=== PATIENT | female | born 1935 | race Caucasian/White ===

== ENCOUNTER → 2016-11-13 | Outpatient (CLI) | payer OTHER ==
[~2016-11-13] MED LIST: B-CO1CAP17 PO; BTP80 PO; ERGO1CAP41 PO; GABA-112 PO; LEVO75TA PO; MAGN400T6 PO; METO25TA56 PO; MRLP17X PO; MULT-513 PO; POTA-327 PO; PRLSR20 PO; SIMV20TA2 PO; TORS20TA2 PO; WARF5TAB7 PO
[2016-11-13 08:56] LABS: INR 2.4 (0.9-1.1); PROTHROMBIN TIME (PATIENT) 26.2 SECONDS (9.0-12.0)
== END ==
LOC: C.LABCC 08:14
PROVIDERS: ATTEND Internal Medicine
DX: I48.91 Unspecified atrial fibrillation (principal)

== ENCOUNTER → 2016-11-17 | Outpatient (CLI) | payer OTHER ==
[2016-11-17 08:37] LABS: PROTHROMBIN TIME (PATIENT) 41.5 SECONDS (9.0-12.0)
[2016-11-17 08:40] LABS: INR 3.7 (0.9-1.1)
== END ==
LOC: C.LABCC 08:11
PROVIDERS: ATTEND Internal Medicine
DX: I48.91 Unspecified atrial fibrillation (principal)

== ENCOUNTER → 2016-11-24 | Outpatient (CLI) | payer OTHER ==
[2016-11-24 09:24] LABS: PROTHROMBIN TIME (PATIENT) 65.4 SECONDS (9.0-12.0)
[2016-11-24 09:33] LABS: INR 5.7 (0.9-1.1)
== END | disposition home or self-care (01) ==
LOC: C.LABCC 08:51
PROVIDERS: ATTEND Internal Medicine
DX: I48.91 Unspecified atrial fibrillation (principal)

== ENCOUNTER → 2016-11-25 | Outpatient (CLI) | payer OTHER ==
[2016-11-25 08:26] LABS: INR 5.3 (0.9-1.1)
== END | disposition home or self-care (01) ==
LOC: C.LABCC 07:58
PROVIDERS: ATTEND Internal Medicine
DX: I48.91 Unspecified atrial fibrillation (principal)

== ENCOUNTER → 2016-11-27 | Outpatient (CLI) | payer OTHER ==
[2016-11-27 10:32] LABS: PROTHROMBIN TIME (PATIENT) 22.2 SECONDS (9.0-12.0)
== END ==
LOC: C.LABCC 09:51
PROVIDERS: ATTEND Internal Medicine
DX: I48.91 Unspecified atrial fibrillation (principal)

== ENCOUNTER → 2016-12-03 | Outpatient (CLI) | payer OTHER ==
[2016-12-03 08:37] LABS: INR 1.1 (0.9-1.1); PROTHROMBIN TIME (PATIENT) 11.6 SECONDS (9.0-12.0)
== END ==
LOC: C.LABCC 08:03
PROVIDERS: ATTEND Internal Medicine
DX: I48.91 Unspecified atrial fibrillation (principal)

== ENCOUNTER → 2016-12-11 | Outpatient (CLI) | payer OTHER ==
[2016-12-11 08:50] LABS: INR 1.4 (0.9-1.1); PROTHROMBIN TIME (PATIENT) 14.7 SECONDS (9.0-12.0)
== END ==
LOC: C.LABCC 07:54
PROVIDERS: ATTEND Internal Medicine
DX: I48.91 Unspecified atrial fibrillation (principal)

== ENCOUNTER → 2016-12-16 | Outpatient (CLI) | payer OTHER ==
[2016-12-16 08:19] LABS: INR 1.6 (0.9-1.1); PROTHROMBIN TIME (PATIENT) 17.6 SECONDS (9.0-12.0)
== END ==
LOC: C.LABCC 07:46
PROVIDERS: ATTEND Internal Medicine
DX: I48.91 Unspecified atrial fibrillation (principal)

== ENCOUNTER → 2016-12-24 | Outpatient (CLI) | payer OTHER ==
[2016-12-24 09:19] LABS: INR 1.8 (0.9-1.1); PROTHROMBIN TIME (PATIENT) 19.9 SECONDS (9.0-12.0)
== END ==
LOC: C.LABCC 08:13
PROVIDERS: ATTEND Internal Medicine
DX: I48.91 Unspecified atrial fibrillation (principal)

== ENCOUNTER → 2017-01-01 | Outpatient (CLI) | payer OTHER ==
[2017-01-01 08:24] LABS: INR 2.7 (0.9-1.1); PROTHROMBIN TIME (PATIENT) 29.8 SECONDS (9.0-12.0)
== END ==
LOC: C.LABCC 07:59
PROVIDERS: ATTEND Internal Medicine
DX: I48.91 Unspecified atrial fibrillation (principal)

== ENCOUNTER → 2017-01-05 | Outpatient (CLI) | payer OTHER ==
[2017-01-05 08:53] LABS: PROTHROMBIN TIME (PATIENT) 33.5 SECONDS (9.0-12.0)
== END | disposition home or self-care (01) ==
LOC: C.LABCC 08:22
PROVIDERS: ATTEND Internal Medicine
DX: I48.91 Unspecified atrial fibrillation (principal)

== ENCOUNTER → 2017-01-12 | Outpatient (CLI) | payer OTHER ==
[2017-01-12 10:51] LABS: INR 2.9 (0.9-1.1); PROTHROMBIN TIME (PATIENT) 32.2 SECONDS (9.0-12.0)
--- NOTE | 2017-01-14 11:14 | CODING QUERY NO DIAGNOSIS ---
TREATMENT RENDERED WITHOUT A DIAGNOSIS 35 To promote full compliance with coding requirements relating to patient care, physician participation is requested in all cases of underground repairer uncertainty. Please assist us with providing a diagnosis/symptom for the test(s) below: A diagnosis/symptom was not documented on your Order. A valid diagnosis/symptom is required to bill all insurances. Please remember that we are unable to code a diagnosis of rule out, probable, possible, questionable, or suspected. DOS 01/12/17 Tests that require a diagnosis: * PT/INR DIAGNOSIS: Provider Signature: Date: Thank you Kayla Rivera Health Information Management Once completed, please kindly fax back to [phone] For questions please call [phone]
== END ==
LOC: C.LABCC 08:32
PROVIDERS: ATTEND Internal Medicine
DX: I48.91 Unspecified atrial fibrillation (principal)

== ENCOUNTER → 2017-01-27 | Outpatient (CLI) | payer OTHER ==
[~2017-01-27] MED LIST changes: -ERGO1CAP41 PO; +ERGO500011 PO
[2017-01-27 09:02] LABS: INR 1.7 (0.9-1.1); PROTHROMBIN TIME (PATIENT) 18.2 SECONDS (9.0-12.0)
== END ==
LOC: C.LABCC 08:35
PROVIDERS: ATTEND Internal Medicine
DX: E83.9 Disorder of mineral metabolism, unspecified (principal); I48.91 Unspecified atrial fibrillation

== ENCOUNTER → 2017-02-03 | Outpatient (CLI) | payer OTHER ==
[2017-02-03 09:09] LABS: INR 1.8 (0.9-1.1); PROTHROMBIN TIME (PATIENT) 20.2 SECONDS (9.0-12.0)
== END ==
LOC: C.LABCC 08:35
PROVIDERS: ATTEND Internal Medicine
DX: I48.91 Unspecified atrial fibrillation (principal)

== ENCOUNTER → 2017-02-05 | Outpatient (CLI) | payer OTHER | LOC: C.LABCC 08:18 | PROVIDERS: ATTEND Internal Medicine | DX: T14.8 Other injury of unspecified body region (principal); X58.XXXA Exposure to other specified factors, initial encounter ==

== ENCOUNTER → 2017-02-06 | Outpatient (CLI) | payer OTHER ==
[2017-02-06 08:45] LABS: PROTHROMBIN TIME (PATIENT) 22.1 SECONDS (9.0-12.0)
== END ==
LOC: C.LABCC 08:09
PROVIDERS: ATTEND Internal Medicine
DX: I48.91 Unspecified atrial fibrillation (principal)

== ENCOUNTER → 2017-02-18 | Outpatient (CLI) | payer OTHER ==
[2017-02-18 09:45] LABS: INR 1.4 (0.9-1.1); PROTHROMBIN TIME (PATIENT) 15.2 SECONDS (9.0-12.0)
== END | disposition home or self-care (01) ==
LOC: C.LABCC 07:57
PROVIDERS: ATTEND Internal Medicine
DX: I48.91 Unspecified atrial fibrillation (principal)

== ENCOUNTER → 2017-02-23 | Outpatient (CLI) | payer OTHER ==
[2017-02-23 08:33] LABS: INR 2.6 (0.9-1.1); PROTHROMBIN TIME (PATIENT) 29.4 SECONDS (9.0-12.0)
== END ==
LOC: C.LABCC 08:02
PROVIDERS: ATTEND Internal Medicine
DX: I48.91 Unspecified atrial fibrillation (principal)

== ENCOUNTER → 2017-03-03 | Outpatient (CLI) | payer OTHER ==
[2017-03-03 08:37] LABS: PROTHROMBIN TIME (PATIENT) 57.3 SECONDS (9.0-12.0)
== END ==
LOC: C.LABCC 07:57
PROVIDERS: ATTEND Internal Medicine
DX: I48.91 Unspecified atrial fibrillation (principal)

== ENCOUNTER → 2017-03-09 | Outpatient (CLI) | payer OTHER ==
[2017-03-09 10:31] LABS: INR 2.5 (0.9-1.1)
== END ==
LOC: C.LABCC 10:09
PROVIDERS: ATTEND Internal Medicine
DX: I48.91 Unspecified atrial fibrillation (principal)

== ENCOUNTER → 2017-03-12 | Outpatient (CLI) | payer OTHER ==
[2017-03-12 08:36] LABS: PROTHROMBIN TIME (PATIENT) 21.7 SECONDS (9.0-12.0)
== END ==
LOC: C.LABCC 08:06
PROVIDERS: ATTEND Internal Medicine
DX: I48.91 Unspecified atrial fibrillation (principal)

== ENCOUNTER → 2017-03-20 | Outpatient (CLI) | payer OTHER ==
[2017-03-20 12:33] LABS: INR 1.9 (0.9-1.1); PROTHROMBIN TIME (PATIENT) 20.4 SECONDS (9.0-12.0)
== END ==
LOC: C.LABCC 12:36
PROVIDERS: ATTEND Internal Medicine
DX: I48.91 Unspecified atrial fibrillation (principal)

== ENCOUNTER → 2017-05-11 | Outpatient (CLI) | payer OTHER ==
[~2017-05-11] MED LIST changes: +ERGO1CAP41 PO; -ERGO500011 PO
[2017-05-11 08:08] LABS: INR 1.7 (0.9-1.1); PROTHROMBIN TIME (PATIENT) 18.3 SECONDS (9.0-12.0)
== END ==
LOC: C.LABCC 07:48
PROVIDERS: ATTEND Internal Medicine
DX: I48.91 Unspecified atrial fibrillation (principal)

== ENCOUNTER → 2017-05-19 | Outpatient (CLI) | payer OTHER ==
[2017-05-19 08:29] LABS: INR 1.2 (0.9-1.1); PROTHROMBIN TIME (PATIENT) 13.2 SECONDS (9.0-12.0)
== END ==
LOC: C.LABCC 07:57
PROVIDERS: ATTEND Internal Medicine
DX: I48.91 Unspecified atrial fibrillation (principal)

== ENCOUNTER → 2017-05-25 | Outpatient (CLI) | payer OTHER ==
[2017-05-25 11:19] LABS: INR 2.2 (0.9-1.1); PROTHROMBIN TIME (PATIENT) 24.2 SECONDS (9.0-12.0)
== END ==
LOC: C.LABCC 09:10
PROVIDERS: ATTEND Internal Medicine
DX: I48.91 Unspecified atrial fibrillation (principal)

== ENCOUNTER → 2017-05-27 | Outpatient (CLI) | payer OTHER ==
[2017-05-27 08:30] LABS: BASO % 0.6 %; BASO ABS # 0.04 K/uL (0-0.2); COMPLETE YES; EOS % 2.8 %; HEMATOCRIT 32.1 % (37-47); IG% 0.2 %; LYMPH % 47.4 %; LYMPH ABS # 3.05 K/uL (1.2-3.4); MEAN CELL VOLUME 95.3 fL (80-100); MEAN CORPUSCULAR HEMOGLOBIN 29.7 pg (25-34); MEAN CORPUSCULAR HGB CONC 31.2 g/dl (32-36); MEAN PLATELET VOLUME 10.3 fL (7.4-10.4); MONO % 10.7 %; NEUT % 38.3 %; PLATELET COUNT 258 K/uL (130-400); RED BLOOD COUNT 3.37 M/uL (4.2-5.4); WHITE BLOOD COUNT 6.43 K/uL (4.8-10.8)
[2017-05-27 08:45] LABS: BLOOD UREA NITROGEN 22 mg/dl (7-18); BUN/CREATININE RATIO 15.7 (10-20); CALCIUM 9.1 mg/dl (8.5-10.1); CARBON DIOXIDE 30 mmol/L (21-32); CHLORIDE 107 mmol/L (98-107); CHOLESTEROL 102 mg/dl (0-200); GLUCOSE 88 mg/dl (70-99); POTASSIUM 4.1 mmol/L (3.5-5.1); SODIUM 143 mmol/L (136-145); TRIGLYCERIDES 139 mg/dl (0-150); VERY LOW DENSITY LIPOPROT CALC 28 mg/dl
[2017-05-27 08:48] LABS: CHOLESTEROL/HDL RATIO 2.7; HDL CHOLESTEROL 38 mg/dl; LDL CHOLESTEROL CALCULATED 36 mg/dl
== END ==
LOC: C.LABCC 07:48
PROVIDERS: ATTEND Internal Medicine
DX: Z51.81 Encounter for therapeutic drug level monitoring (principal); N18.9 Chronic kidney disease, unspecified; D64.9 Anemia, unspecified

== ENCOUNTER → 2017-06-01 | Outpatient (CLI) | payer OTHER ==
[2017-06-01 09:21] LABS: INR 1.7 (0.9-1.1); PROTHROMBIN TIME (PATIENT) 18.8 SECONDS (9.0-12.0)
== END ==
LOC: C.LABCC 08:46
PROVIDERS: ATTEND Internal Medicine
DX: I48.91 Unspecified atrial fibrillation (principal)

== ENCOUNTER → 2017-06-10 | Outpatient (CLI) | payer OTHER ==
[2017-06-10 07:49] LABS: BASO % 0.5 %; BASO ABS # 0.03 K/uL (0-0.2); COMPLETE YES; EOS % 4.5 %; HEMATOCRIT 33.2 % (37-47); IG% 0.2 %; LYMPH % 49.7 %; MEAN CELL VOLUME 94.9 fL (80-100); MEAN CORPUSCULAR HEMOGLOBIN 29.4 pg (25-34); MEAN PLATELET VOLUME 10.3 fL (7.4-10.4); MONO % 9.3 %; NEUT % 35.8 %; PLATELET COUNT 266 K/uL (130-400); WHITE BLOOD COUNT 6.24 K/uL (4.8-10.8)
[2017-06-10 08:03] LABS: INR 1.7 (0.9-1.1); PROTHROMBIN TIME (PATIENT) 18.6 SECONDS (9.0-12.0)
== END | disposition home or self-care (01) ==
LOC: C.LABCC 07:39
PROVIDERS: ATTEND Internal Medicine
DX: D64.9 Anemia, unspecified (principal); I48.91 Unspecified atrial fibrillation

== ENCOUNTER → 2017-06-15 | Outpatient (CLI) | payer OTHER ==
[2017-06-15 10:43] LABS: INR 1.9 (0.9-1.1); PROTHROMBIN TIME (PATIENT) 21.4 SECONDS (9.0-12.0)
== END ==
LOC: C.LABCC 10:09
PROVIDERS: ATTEND Internal Medicine
DX: I48.91 Unspecified atrial fibrillation (principal)

== ENCOUNTER → 2017-06-22 | Outpatient (CLI) | payer OTHER ==
[2017-06-22 09:50] LABS: INR 3.1 (0.9-1.1); PROTHROMBIN TIME (PATIENT) 35.3 SECONDS (9.0-12.0)
== END ==
LOC: C.LABCC 09:23
PROVIDERS: ATTEND Internal Medicine
DX: I48.91 Unspecified atrial fibrillation (principal)

== ENCOUNTER → 2017-06-30 | Outpatient (CLI) | payer OTHER ==
[2017-06-30 12:11] LABS: INR 5.9 (0.9-1.1)
== END ==
LOC: C.LABCC 11:27
PROVIDERS: ATTEND Internal Medicine
DX: I48.91 Unspecified atrial fibrillation (principal)

== ENCOUNTER → 2017-07-01 | Outpatient (CLI) | payer OTHER ==
[2017-07-01 08:47] LABS: PROTHROMBIN TIME (PATIENT) 71.8 SECONDS (9.0-12.0)
[2017-07-01 08:54] LABS: INR 6.2 (0.9-1.1)
== END ==
LOC: C.LABCC 08:07
PROVIDERS: ATTEND Internal Medicine
DX: D68.9 Coagulation defect, unspecified (principal)

== ENCOUNTER → 2017-07-02 | Outpatient (CLI) | payer OTHER ==
[2017-07-02 08:47] LABS: INR 3.4 (0.9-1.1); PROTHROMBIN TIME (PATIENT) 38.6 SECONDS (9.0-12.0)
== END | disposition home or self-care (01) ==
LOC: C.LABCC 08:17
PROVIDERS: ATTEND Internal Medicine
DX: D68.9 Coagulation defect, unspecified (principal)

== ENCOUNTER → 2017-07-06 | Outpatient (CLI) | payer OTHER ==
[2017-07-06 08:32] LABS: INR 2.1 (0.9-1.1); PROTHROMBIN TIME (PATIENT) 23.1 SECONDS (9.0-12.0)
== END ==
LOC: C.LABCC 07:40
PROVIDERS: ATTEND Internal Medicine
DX: I48.91 Unspecified atrial fibrillation (principal)

== ENCOUNTER → 2017-07-14 | Outpatient (CLI) | payer OTHER ==
[2017-07-14 08:33] LABS: INR 1.8 (0.9-1.1); PROTHROMBIN TIME (PATIENT) 20.1 SECONDS (9.0-12.0)
== END ==
LOC: C.LABCC 07:52
PROVIDERS: ATTEND Internal Medicine
DX: I48.91 Unspecified atrial fibrillation (principal)

== ENCOUNTER → 2017-07-22 | Outpatient (CLI) | payer OTHER ==
[2017-07-22 10:01] LABS: INR 1.6 (0.9-1.1); PROTHROMBIN TIME (PATIENT) 17.4 SECONDS (9.0-12.0)
== END ==
LOC: C.LABCC 08:56
PROVIDERS: ATTEND Internal Medicine
DX: I48.91 Unspecified atrial fibrillation (principal)

== ENCOUNTER → 2017-07-29 | Outpatient (CLI) | payer OTHER ==
[2017-07-29 09:21] LABS: FERRITIN 26.6 ng/ml (8.0-388.0)
== END ==
LOC: C.LABCC 08:49
PROVIDERS: ATTEND Internal Medicine
DX: E11.9 Type 2 diabetes mellitus without complications (principal); K21.9 Gastro-esophageal reflux disease without esophagitis; D64.9 Anemia, unspecified

== ENCOUNTER → 2017-07-30 | Outpatient (CLI) | payer OTHER ==
[2017-07-30 08:45] LABS: INR 1.4 (0.9-1.1); PROTHROMBIN TIME (PATIENT) 15.2 SECONDS (9.0-12.0)
== END | disposition home or self-care (01) ==
LOC: C.LABCC 08:04
PROVIDERS: ATTEND Internal Medicine
DX: I48.91 Unspecified atrial fibrillation (principal)

== ENCOUNTER → 2017-08-03 | Outpatient (CLI) | payer OTHER ==
[2017-08-03 10:09] LABS: INR 1.7 (0.9-1.1); PROTHROMBIN TIME (PATIENT) 18.1 SECONDS (9.0-12.0)
== END ==
LOC: C.LABCC 09:28
PROVIDERS: ATTEND Internal Medicine
DX: I48.91 Unspecified atrial fibrillation (principal)

== ENCOUNTER → 2017-08-06 | Outpatient (CLI) | payer OTHER ==
--- NOTE | 2017-08-06 13:56 | MAMMOGRAPHY REPORT ---
BILATERAL DIGITAL SCREENING MAMMOGRAM WITH CAD: 08/06/2017 CLINICAL HISTORY: Routine screening. Patient has no complaints. TECHNIQUE: Current study was also evaluated with a Computer Aided Detection (CAD) system. Bilateral CC and MLO views were obtained. COMPARISON: Comparison is made to exams dated: 08/04/2016 mammogram, 12/29/2013 mammogram, 08/26/2012 m ammogram, 08/11/2011 mammogram, 04/03/2010 mammogram - [facility], and 02/22/2008. BREAST COMPOSITION: There are scattered areas of fibroglandular density in both breasts. FINDINGS: No suspicious masses, calcifications, or areas of architectural distortion are noted in ei ther breast. There has been no significant interval change compared to prior exams. Bilateral benign -appearing calcifications are not significantly changed. A pacemaker is visualized in the left 12:00 posterior breast. Note that bilateral MLO views are suboptimal due to difficulties with patient pos itioning as she is wheelchair-bound, with pectoralis muscles not visualized on the MLO views. IMPRESSION: ACR BI-RADS CATEGORY 2: BENIGN There is no mammographic evidence of malignancy. A 1 year screening mammogram is recommended. The pa tient will receive written notification of the results. Approximately 10% of breast cancers are not detected with mammography. A negative mammographic report should not delay biopsy if a clinically suggestive mass is present. Glory Nicole M.D. /:08/06/2017 12:01:45 Attending Technologist: Nader Ibrahim RT(R)(M), [facility] [employer] Machine Operator: Kimberly Samuel RT(R)(M), [facility] letter sent: Normal 1/2 BI-RADS Code: ACR BI-RADS Category 2: Benign
== END | disposition home or self-care (01) ==
LOC: C.MAMM 10:17
PROVIDERS: ATTEND Internal Medicine
DX: Z12.31 Encounter for screening mammogram for malignant neoplasm of breast (principal)

== ENCOUNTER → 2017-08-10 | Outpatient (CLI) | payer OTHER ==
[2017-08-10 09:23] LABS: INR 2.1 (0.9-1.1); PROTHROMBIN TIME (PATIENT) 22.9 SECONDS (9.0-12.0)
== END ==
LOC: C.LABCC 09:01
PROVIDERS: ATTEND Internal Medicine
DX: I48.91 Unspecified atrial fibrillation (principal)

== ENCOUNTER → 2017-08-18 | Outpatient (CLI) | payer OTHER ==
[~2017-08-18] MED LIST changes: -ERGO1CAP41 PO; +ERGO500011 PO
[2017-08-18 08:20] LABS: PROTHROMBIN TIME (PATIENT) 22.1 SECONDS (9.0-12.0)
--- NOTE | 2017-09-11 08:48 | CODING QUERY NO DIAGNOSIS ---
TREATMENT RENDERED WITHOUT A DIAGNOSIS To promote full compliance with coding requirements relating to patient care, physician participation is requested in all cases of travel coordinator uncertainty. Please assist us with providing a diagnosis/symptom for the test(s) below: A diagnosis/symptom was not documented on your Order. A valid diagnosis/symptom is required to bill all insurances. Please remember that we are unable to code a diagnosis of rule out, probable, possible, questionable, or suspected. Tests that require a diagnosis: * PT/INR DIAGNOSIS: Provider Signature: Date: Thank you Naida Cutler [employer] Information Management Once completed, please kindly fax back to [phone] For questions please call [phone]
== END ==
LOC: C.LABCC 07:59
PROVIDERS: ATTEND Internal Medicine
DX: I48.91 Unspecified atrial fibrillation (principal)

== ENCOUNTER → 2017-09-02 | Outpatient (CLI) | payer OTHER ==
[2017-09-02 09:04] LABS: INR 2.9 (0.9-1.1); PROTHROMBIN TIME (PATIENT) 32.2 SECONDS (9.0-12.0)
== END ==
LOC: C.LABCC 07:51
PROVIDERS: ATTEND Internal Medicine
DX: I48.91 Unspecified atrial fibrillation (principal)

== ENCOUNTER → 2017-10-01 | Outpatient (CLI) | payer OTHER ==
[2017-10-01 08:45] LABS: INR 3.1 (0.9-1.1); PROTHROMBIN TIME (PATIENT) 32.1 SECONDS (9.0-12.0)
== END ==
LOC: C.LABCC 07:46
PROVIDERS: ATTEND Internal Medicine
DX: I48.91 Unspecified atrial fibrillation (principal)

== ENCOUNTER → 2017-11-02 | Outpatient (CLI) | payer OTHER | LOC: C.LABCC 07:46 | PROVIDERS: ATTEND Internal Medicine | DX: I48.91 Unspecified atrial fibrillation (principal) ==

== ENCOUNTER → 2017-11-09 | Outpatient (CLI) | payer OTHER ==
[2017-11-09 11:54] LABS: INR 1.5 (0.9-1.1)
== END | disposition home or self-care (01) ==
LOC: C.LABCC 09:42
PROVIDERS: ATTEND Internal Medicine
DX: I48.91 Unspecified atrial fibrillation (principal)

== ENCOUNTER → 2017-11-18 | Outpatient (CLI) | payer OTHER ==
[2017-11-18 10:29] LABS: INR 2.7 (0.9-1.1)
== END ==
LOC: C.LABCC 08:47
PROVIDERS: ATTEND Internal Medicine
DX: I48.91 Unspecified atrial fibrillation (principal)

== ENCOUNTER → 2017-12-03 | Outpatient (CLI) | payer OTHER ==
[2017-12-03 08:44] LABS: INR 6.6 (0.9-1.1)
== END ==
LOC: C.LABCC 07:48
PROVIDERS: ATTEND Internal Medicine
DX: I48.91 Unspecified atrial fibrillation (principal)

== ENCOUNTER → 2017-12-31 | Outpatient (CLI) | payer OTHER ==
[2017-12-31 10:06] LABS: INR 1.7 (0.9-1.1)
== END ==
LOC: C.LABCC 08:13
PROVIDERS: ATTEND Internal Medicine
DX: I48.91 Unspecified atrial fibrillation (principal)

== ENCOUNTER → 2018-01-07 | Outpatient (CLI) | payer OTHER ==
[2018-01-07 08:27] LABS: INR 3.3 (0.9-1.1)
[2018-01-07 09:09] LABS: HEMOGLOBIN A1C 5.8 % (4.5-5.6)
== END ==
LOC: C.LABCC 07:51
PROVIDERS: ATTEND Internal Medicine
DX: I48.91 Unspecified atrial fibrillation (principal); E11.9 Type 2 diabetes mellitus without complications

== ENCOUNTER → 2018-01-14 | Outpatient (CLI) | payer OTHER ==
[2018-01-14 08:35] LABS: INR 4.5 (0.9-1.1)
== END ==
LOC: C.LABCC 07:56
PROVIDERS: ATTEND Internal Medicine
DX: I48.91 Unspecified atrial fibrillation (principal)

== ENCOUNTER → 2018-01-18 | Outpatient (CLI) | payer OTHER ==
[2018-01-18 08:50] LABS: INR 3.6 (0.9-1.1)
== END ==
LOC: C.LABCC 07:57
PROVIDERS: ATTEND Internal Medicine
DX: I48.91 Unspecified atrial fibrillation (principal)

== ENCOUNTER → 2018-01-21 | Outpatient (CLI) | payer OTHER ==
[2018-01-21 08:28] LABS: INR 3.3 (0.9-1.1)
== END ==
LOC: C.LABCC 08:09
PROVIDERS: ATTEND Internal Medicine
DX: I48.91 Unspecified atrial fibrillation (principal)

== ENCOUNTER → 2018-01-29 | Outpatient (CLI) | payer OTHER ==
[2018-01-29 08:53] LABS: INR 2.7 (0.9-1.1)
== END ==
LOC: C.LABCC 07:56
PROVIDERS: ATTEND Internal Medicine
DX: I48.91 Unspecified atrial fibrillation (principal)

== ENCOUNTER → 2018-02-15 | Outpatient (CLI) | payer OTHER ==
[2018-02-15 08:27] LABS: INR 1.7 (0.9-1.1)
== END ==
LOC: C.LABCC 07:52
PROVIDERS: ATTEND Internal Medicine
DX: I48.91 Unspecified atrial fibrillation (principal)

== ENCOUNTER → 2018-02-22 | Outpatient (CLI) | payer OTHER ==
[2018-02-22 09:10] LABS: INR 1.3 (0.9-1.1)
== END ==
LOC: C.LABCC 08:16
PROVIDERS: ATTEND Internal Medicine
DX: I48.91 Unspecified atrial fibrillation (principal)

== ENCOUNTER → 2018-03-03 | Outpatient (CLI) | payer OTHER ==
[2018-03-03 09:18] LABS: INR 2.4 (0.9-1.1)
== END ==
LOC: C.LABCC 08:44
PROVIDERS: ATTEND Internal Medicine
DX: I48.91 Unspecified atrial fibrillation (principal)

== ENCOUNTER 2018-05-13 11:53 | Inpatient (IN) | payer OTHER ==
[~2018-05-13] VITALS: Ht 167.6 cm; Wt 137.4 kg
[~2018-05-13 11:53] MED LIST changes: -ACET-1311 PO; -ADVIN25/60 INH; -CHOL200010 PO; -CMD125 PO; -CMD3 PO; -CYM60 PO; -DICL1GEL12 TOP; -LEVO100T7 PO; -MULTTAB63 PO; -NRN100 PO; -NRN300 PO; -POTA10CA28 PO; -SLWMEC PO; -TORS20TA3 PO
[2018-05-13] MEDS ORDERED: NITROGLYCERIN 0.4 MG SL PER TAB CHARGE SL PRN (13:30)
[2018-05-13] MEDS ORDERED: ONDANSETRON INJ 2 MG/ML 2 ML VIAL IV PRN (13:30)
[2018-05-13] MEDS ORDERED: ACETAMINOPHEN 325 MG TAB PO PRN (13:30)
[2018-05-13 13:50] VITALS: BP 156/75; PULSE 60; TEMP 36.9; O2SAT 98; BMI 55.7
[2018-05-13 14:06] LABS: HEMATOCRIT 37.1 % (37-47); HEMOGLOBIN 11.7 g/dL (12.0-16.0); MEAN CELL VOLUME 93.2 fL (80-100); MEAN CORPUSCULAR HEMOGLOBIN 29.4 pg (25-34); MEAN CORPUSCULAR HGB CONC 31.5 g/dl (32-36); MEAN PLATELET VOLUME 10.3 fL (7.4-10.4); PLATELET COUNT 244 K/uL (130-400); RED CELL DISTRIBUTION WIDTH CV 16.1 % (11.5-14.5); WHITE BLOOD COUNT 7.07 K/uL (4.8-10.8)
[2018-05-13 14:13] LABS: INR 1.7 (0.9-1.1)
[2018-05-13 14:34] LABS: CALCIUM 9.3 mg/dl (8.5-10.1); CREATININE 1.46 mg/dl (0.60-1.20); POTASSIUM 4.2 mmol/L (3.5-5.1)
[2018-05-13] MEDS ORDERED: GLUCOSE 40% GEL 15 GM TUBE PO PRN (15:30)
[2018-05-13] MEDS ORDERED: CARBOHYDRATES FOR HYPOGLYCEMIA PO PRN (15:30)
[2018-05-13] MEDS ORDERED: GLUCOSE 10 TABS/TUBE PO PRN (15:30)
[2018-05-13] MEDS ORDERED: DEXTROSE 50% 50 ML SYR IV PRN (15:30)
[2018-05-13] MEDS ORDERED: GLUCAGON FOR INJ 1 MG VIAL SQ PRN (15:30)
[2018-05-13] MEDS ORDERED: DICL1GEL12 TOP (15:49)
[2018-05-13] MEDS ORDERED: MULTTAB63 PO (15:49)
[2018-05-13] MEDS ORDERED: LEVO100T7 PO (15:49)
[2018-05-13] MEDS ORDERED: ADVIN25/60 INH (15:49)
[2018-05-13] MEDS ORDERED: CHOL200010 PO (15:49)
[2018-05-13] MEDS ORDERED: NRN300 PO (15:49)
[2018-05-13] MEDS ORDERED: ACET-1311 PO (15:49)
[2018-05-13] MEDS ORDERED: CMD3 PO (15:49)
--- NOTE | 2018-05-13 15:56 | History and Physical ---
History & Physical Date & Time of Service: May 13, 2018 at 14:20 Chief Complaint: Volume Overload Primary Care Physician: [facility] History of Present Illness Source: patient, clinic records, hospital records Pt is 82 y/o F with PMH paroxysmal atrial fibrillation, tachybrady syndrome s/p pacer, CKD III, HTN, GERD, DM II, BLE lymphedema presents as direct admission to hospital from [employer] [facility] [employer] - Dr Sun office for increased BLE edema. Reports chronic BLE edema and discomfort with steady increase in edema. Today clear discharge is noted from bilateral lower extremities in the office. Physical therapy has been tried for lymphedema without much relief. Diuretics have been difficult for pt secondary to her ambulatory dysfunction and inability to get up to bathroom easily. Uses scooter, takes multiple lift for transfers at [facility]. Pt unsure if any weight changes. Reports has sores to right chest wall, unsure if from bra rubbing or from lift, also c/o soreness to bilateral buttocks. Denies fever/chills, diaphoresis, N/V/D/C, MARTINEZ, dizziness , syncope, vision changes, neck pain, CP, SOB, orthopnea, PND, palpitations, cough, sore throat, choking, otalgia, rhinorrhea, abdominal pain, urinary symptoms. Past Medical/Surgical History Medical Problems: (1) Acute kidney injury Status: Resolved (2) Ambulatory dysfunction Status: Chronic (3) Atrial fibrillation Status: Chronic (4) Diabetes mellitus, type 2 Status: Chronic (5) Dyslipidemia Status: Chronic (6) Encephalopathy Status: Resolved (7) GERD (gastroesophageal reflux disease) Status: Chronic (8) Hypertension Status: Chronic (9) Hypothyroidism Status: Chronic (10) Osteoarthritis Status: Chronic (11) Pacemaker Status: Chronic (12) Venous insufficiency of both lower extremities Status: Chronic Surgical Problems: (1) Status post cardiac pacemaker procedure Status: Chronic (2) Status post hysterectomy Status: Chronic Family History CANCER FATHER MOTHER Social History Smoking Status: Never Smoker Smokeless Tobacco Use: No Alcohol Use: none Drug Use: none Marital Status: Housing status: other ([facility]) Occupational Status: retired Immunizations History of Influenza Vaccine: Yes Influenza Vaccine Date: Jul 30, 2010 History of Tetanus Vaccine?: Yes Tetanus Immunization Date: May 31, 2009 History of Pneumococcal: Yes Pneumococcal Date: Mar 30, 2006 History of Hepatitis B Vaccine: Yes Hepatitis Immunization Date: Mar 30, 2005 Allergies Coded Allergies: Amoxicillin (Verified Allergy, Intermediate, DERMATITIS, 06/04/16) Clavulanic Acid (Verified Allergy, Intermediate, DERMATITIS, 06/04/16) Poison Jacinda Extract/Poison Meally Extra (Verified Allergy, Intermediate, RASH , 06/09/16) Sulfa Antibiotics (Verified Allergy, Intermediate, RASH, 06/09/16) BEE STING (Verified Allergy, Mild, RASH, 06/04/16) Latex (Verified Allergy, Unknown, UNKNOWN, 06/04/16) STATES WHEN SHE WENT FOR FLU SHOT THEY TOLD HER SHE WAS ALLERGIC TO LATEX YOEL Inhibitors (Verified Adverse Reaction, Mild, COUGH, 06/09/16) Home Medications Scheduled Cholecalciferol (Vitamin D), 1 CAP PO DAILY Fluticasone Prop/Salmeterol (Advair Diskus 250/50 60 Dose), 1 PUFF INH BID Gabapentin (Gabapentin), 1 CAP PO TID Levothyroxine Sodium (Levothyroxine Sodium), 1 TAB PO DAILY Magnesium Oxide (Mag-Ox), 400 MG PO BID Metoprolol Tartrate (Lopressor) (Lopressor), 25 MG PO BID Multiple Vitamins W/ Minerals (Therems M), 1 TAB PO DAILY Omeprazole (Prilosec), 20 MG PO DAILY Potassium Ext Rel (Klor-Con), 10 MEQ PO DAILY Simvastatin (Zocor), 20 MG PO QPM Sotalol Hcl (Betapace *), 40 MG PO BID Torsemide (Demadex), 20 MG PO DAILY Vitamin B Cmplx/Vitc/Folic Ac (Nephrocaps), 1 CAP PO 3XWK Warfarin Sod (Coumadin), 1 TAB PO DAILY Scheduled PRN Acetaminophen (Tylenol), 650 MG PO Q6 PRN for Pain or Fever Diclofenac Sodium (Topical) (Voltaren 1% Top Gel), 4 GM TOP QID PRN for Pain Polyethylene (Miralax), 17 GM PO BID PRN for Constipation Review of Systems See HPI for pertinent positives & negatives. All other systems reviewed and were otherwise negative Physical Exam Vital Signs Date Time Temp Pulse Resp B/P (MAP) Pulse Ox O2 Delivery O2 Flow Rate FiO2 05/13/18 13:50 36.9 60 20 156/75 98 Room Air General Appearance: no apparent distress, + obese Head: normocephalic, atraumatic Eyes: normal inspection, sclerae normal ENT: hearing grossly normal, pharynx normal, + pertinent finding (Mucous membranes moist) Neck: supple, no JVD, trachea midline Respiratory/Chest: lungs clear, normal breath sounds, no respiratory distress Cardiovascular: regular rate, rhythm, no murmur, normal peripheral pulses Abdomen/GI: normal bowel sounds, non tender, soft Extremities/Musculoskelatal: normal capillary refill, + pertinent finding (BLE 3+ edema entire extremity, slight clear weeping noted from bilateral and lower lower extremities, mild BLE erythema. Extremities nontender to palpation.) Neurologic/Psych: alert, normal mood/affect, oriented x 3 Skin: warm/dry, + pertinent finding (bilateral feet noted to be dirty, Right torso with small erythematous ulcer noted, erythemata right torso skin fold) Diagnostics Laboratory Results Last 24 Hours Test 05/13/18 13:55 White Blood Count 7.07 K/uL Red Blood Count 3.98 M/uL Hemoglobin 11.7 g/dL Hematocrit 37.1 % Mean Corpuscular Volume 93.2 fL Mean Corpuscular Hemoglobin 29.4 pg Mean Corpuscular Hemoglobin Concent 31.5 g/dl RDW Standard Deviation 55.0 fL RDW Coefficient of Variation 16.1 % Platelet Count 244 K/uL Mean Platelet Volume 10.3 fL Prothrombin Time 17.9 SECONDS Prothromb Time International Ratio 1.7 Sodium Level 143 mmol/L Potassium Level 4.2 mmol/L Chloride Level 106 mmol/L Carbon Dioxide Level 32 mmol/L Anion Gap 5.0 mmol/L Blood Urea Nitrogen 33 mg/dl Creatinine 1.46 mg/dl Est Creatinine Clear Calc Drug Dose 46.1 ml/min Estimated GFR () 38.5 Estimated GFR (Non- 33.2 BUN/Creatinine Ratio 22.9 Random Glucose 96 mg/dl Calcium Level 9.3 mg/dl Magnesium Level 2.3 mg/dl Pro-B-Type Natriuretic Peptide 4816 pg/ml Thyroid Stimulating Hormone (TSH) 2.060 uIu/ml Diagnostic Radiology CXR: IMPRESSION: Cardiomegaly without overt pulmonary edema. EKG EKG: paced rhythm, rate 60 Impression Assessment and Plan ACUTE ON CHRONIC VOLUME OVERLOAD probable multifactorial: lymphedema, venous insufficiency. Pt on torsemide 20mg daily. BNP: 4816. CXR: Cardiomegaly without overt pulmonary edema -echo -Lasix drip per cardiology recommendations -Knox catheter -cardiology consult -cbc, prp, mag labs in am Hx PAROXYSMAL ATRIAL FIBRILLATION ON COUMADIN INR: 1.7 -continue Coumadin, sotalol, metoprolol -INR in am Hx TACHYCARDIA BRADYCARDIA SYNDROME s/p pacemaker in 2013. Current paced rhythm -had pacer check in cardiology office today: underlying rhythm sinus rhythm, atrial fibrillation burden of 13.8%, device function was normal CKD III Cr: 1.46. baseline Cr: 1.4-1.57 -continue nephro caps -monitor renal functions -avoid nephrotoxic agents when possible AMBULATORY DYSFUNCTION secondary to lymphedema, deconditioning, obesity -PT/OT eval PRESSURE WOUNDS buttocks, right torso -wound care nurse consult DM II glucose 96. No active DM meds -HA1c in am -novolog sliding scale prn HTN -continue metoprolol GERD -continue PPI HYPOTHYROIDISM TSH: 2.0 -continue levothyroxine HLD -continue statin DVT Prophylaxis -On coumadin Disposition admit tele DNR/DNI as per discussion with pt Currently at [facility] Pt was seen with Dr Pichardo. See addendum Attending addendum; The patient was seen and examined in telemetry unit She is obese with multiple comorbid conditions as mentioned above, has been almost bedbound for the last 1-1/2 years, has bilateral lymphedema, was admitted from cardiology clinic with signs and symptoms of fluid overload. She complains to have bilateral leg swelling with some discomfort She was noted to have seeping of fluid from the legs Denies any other symptoms especially no shortness of breath at rest, no chest pain and/or palpitation, no abdominal pain nausea and/or vomiting On examination No apparent distress at rest Hemodynamically stable Chest-decreased breath sounds both sites, likely due to thick chest wall Heart-S1-S2, no definite murmur appreciated Abdomen-soft, difficult to feel for any organs, bowel sounds present Extremities-bilateral lower extremities edema about 2+, no edema over the thighs thighs than the leg Seeping of fluid mostly from the left No definite ulceration and no cellulitis Minimal redness redness noted at the lower DIRECT OF REAL ESTATE-alert,awake and oriented 3, Generally weak, no focal neuro deficit Her labs and imaging studies reviewed No overt CHF and chronic kidney disease remains stable Started on intravenous Lasix infusion Monitor intake output, electrolytes and renal function Review with assessment and plan as outlined above Dr. Dex Pichardo Advanced Directives Existing Living Will: Yes Existing Power of Replenishment Merchandising Associate: Yes Resuscitation Status VTE Prophylaxis Will order VTE Prophylaxis: Yes Additional Copies To [facility] [place]
[2018-05-13] MEDS ORDERED: DICLOFENAC SOD 1% GEL 100 GM TUBE EXT PRN (16:00)
--- NOTE | 2018-05-13 16:22 | DIAGNOSTIC IMAGING REPORT ---
CHEST ONE VIEW PORTABLE HISTORY: 82 years-old Female volume overload acute shortness of breath with volume overload COMPARISON: Chest radiograph 06/04/2016 TECHNIQUE: Portable AP view of the chest FINDINGS: Cardiac silhouette is enlarged. Left subclavian pacer appears unchanged. No pneumothorax, pleural effusion or overt pulmonary edema. Mild right hemidiaphragmatic elevation. Linear subsegmental left basilar opacities favor atelectasis. Bones of the chest appear grossly intact. IMPRESSION: Cardiomegaly without overt pulmonary edema. The above report was generated using voice recognition software. It may contain grammatical, syntax or spelling errors. Electronically signed by: Fredo Redd M.D. 05/13/2018 4:21 PM Dictated Date/Time: 05/13/2018 4:20 PM
[2018-05-13] MEDS: FUROSEMIDE INJ 100 MG in DEXTROSE 5% 100ML 90 ML IV SCH (16:46)
[2018-05-13] MEDS: WARFARIN SOD 3 MG TAB PO SCH (16:51)
[2018-05-13] MEDS: INSULIN ASPART 100 UNITS/ML 3 ML PEN SC SCH ×2 (16:54→21:00)
[2018-05-13 19:54] VITALS: BP 142/74; PULSE 60; TEMP 36.4; O2SAT 100
[2018-05-13] MEDS: FLUTICASONE/SALMETEROL 250/50 (ADVAIR) 14 PUFF/1 INHALER INH SCH (21:19)
[2018-05-13] MEDS: GABAPENTIN 300 MG CAP PO SCH (21:21)
[2018-05-13] MEDS: SOTALOL HCL 80 MG TAB PO SCH (21:22)
[2018-05-13] MEDS: MAGNESIUM OXIDE 400 MG TAB PO SCH (21:23)
[2018-05-13] MEDS: SIMVASTATIN 20 MG TAB PO SCH (21:23)
[2018-05-13] MEDS: METOPROLOL TARTRATE 25 MG TAB PO SCH (21:23)
[2018-05-13 23:34] VITALS: BP 124/55; PULSE 60; TEMP 36.3; O2SAT 94
[2018-05-14] MEDS: FUROSEMIDE INJ 100 MG in DEXTROSE 5% 100ML 90 ML IV SCH ×3 (01:59→22:43)
[2018-05-14 03:08] VITALS: BP 136/61; PULSE 64; TEMP 36.7; O2SAT 94
[2018-05-14 06:18] LABS: INR 1.8 (0.9-1.1)
[2018-05-14 06:19] LABS: HEMATOCRIT 32.2 % (37-47); HEMOGLOBIN 10.5 g/dL (12.0-16.0); MEAN CELL VOLUME 95.5 fL (80-100); MEAN CORPUSCULAR HEMOGLOBIN 31.2 pg (25-34); MEAN CORPUSCULAR HGB CONC 32.6 g/dl (32-36); MEAN PLATELET VOLUME 10.4 fL (7.4-10.4); PLATELET COUNT 225 K/uL (130-400); RED CELL DISTRIBUTION WIDTH CV 16.4 % (11.5-14.5); RED CELL DISTRIBUTION WIDTH SD 55.8 fL (36.4-46.3); WHITE BLOOD COUNT 5.67 K/uL (4.8-10.8)
[2018-05-14] MEDS: LEVOTHYROXINE 100 MCG TAB PO SCH (06:32)
[2018-05-14 06:45] LABS: CREATININE 1.48 mg/dl (0.60-1.20); PHOSPHORUS 3.4 mg/dl (2.5-4.9); POTASSIUM 3.8 mmol/L (3.5-5.1)
[2018-05-14 06:56] LABS: HEMOGLOBIN A1C 5.8 % (4.5-5.6)
[2018-05-14] MEDS ORDERED: PERFLUTREN LIPID MICROSPHERE (DEFINITY) IV ONE (07:05)
[2018-05-14] MEDS: INSULIN ASPART 100 UNITS/ML 3 ML PEN SC SCH ×4 (08:19→21:00)
[2018-05-14] MEDS: CHOLECALCIFEROL 1000 INTER.UNIT TAB PO SCH (08:20)
[2018-05-14] MEDS: PANTOprazole SOD 40 MG TAB PO SCH (08:20)
[2018-05-14] MEDS: MAGNESIUM OXIDE 400 MG TAB PO SCH ×2 (08:21→21:14)
[2018-05-14] MEDS: CEROVITE ADV FORMULA TAB PO SCH (08:21)
[2018-05-14] MEDS: GABAPENTIN 300 MG CAP PO SCH ×3 (08:22→21:15)
[2018-05-14] MEDS: METOPROLOL TARTRATE 25 MG TAB PO SCH ×2 (08:22→21:14)
[2018-05-14] MEDS: SOTALOL HCL 80 MG TAB PO SCH ×2 (08:23→21:13)
[2018-05-14] MEDS: FLUTICASONE/SALMETEROL 250/50 (ADVAIR) 14 PUFF/1 INHALER INH SCH ×2 (08:24→21:13)
--- NOTE | 2018-05-14 08:35 | ECHOCARDIOGRAM REPORT ---
*NOTICE TO RECEIVING [employer] This information is strictly Confidential and protected under [place] law. [place] law prohibits you from making any further disclosure of this information unless further disclosure is expressly permitted by the written consent of the person to whom it pertains or is authorized by law. A general authorization for the release of medical or other information is not sufficient for this purpose. Hospital accepts no responsibility if the information is made available to any other person, INCLUDING THE PATIENT. Interpretation Summary * Name: GOLDY SULLIVAN Study Date: 05/14/2018 06:27 AM BP: 136/61 mmHg * Patient Location: [id number].2E\[id number]\E207\S\1 HR: 64 * : 1935 (M/d/yyyy) Gender: Female Height: 66 in * Age: 82 yrs Ethnicity: CA Weight: 345 lb * Ordering Physician: Cielo Andrew * Referring Physician: UNKNOWN * Performed By: Huma Arciniega RDCS * * Reason For Study: Volume overload * BSA: 2.5 m2 * -- Conclusions -- * No significant change compared to previous study of 01/15/14. * Normal LV chamber size with mild concentric LVH. * Normal LV systolic function, EF 60-65%. * No segmental left ventricular wall motion abnormalities are noted. * Grade II diastolic dysfunction. * Poorly visualized valvular structures with no significant stenosis or regurgitation by Doppler. Procedure Details * A complete two-dimensional transthoracic echocardiogram was performed (2D, M-mode, Doppler and color flow Doppler). * A contrast injection of Definity was performed to improve assessment of LV function. * Contrast was injected into an intravenous site in the left arm. * One vial of Definity ultrasound contrast was diluted in normal saline to a total volume of 10 ml. A total of '2' ml of solution was administered during imaging. * Lot # [id number] of Definity utilized for procedure. * Expiration date MARCH 13. * The attending nurse who injected the contrast agent was Kelsy Avilez RN. Left Ventricle * The left ventricle is normal in size. * There is no thrombus. * There is mild concentric left ventricular hypertrophy. * Ejection Fraction = 60-65%. * Left ventricular systolic function is normal. * No segmental left ventricular wall motion abnormalities are noted. * The left ventricular wall motion is normal. Right Ventricle * The right ventricle is not well visualized. * The right ventricular systolic function is normal as assessed by tricuspid annular plane systolic excursion (TAPSE) (normal >1.5 cm). Atria * The left atrium is not well visualized. * Right atrium not well visualized. Mitral Valve * The mitral valve is not well visualized. * There is no mitral valve stenosis. * There is no mitral regurgitation noted. Tricuspid Valve * The tricuspid valve is not well visualized. * There is no tricuspid stenosis. * No tricuspid regurgitation. Aortic Valve * The aortic valve is not well visualized. * No hemodynamically significant valvular aortic stenosis. * There is no significant aortic regurgitation. Pulmonic Valve * The pulmonary valve is not well seen, but the Doppler examination is normal without significant regurgitation or stenosis. Great Vessels * The aortic root is normal size. Pericardium/Pleural * There is no pericardial effusion. Left Ventricular Diastolic Function * Diastolic dysfunction, Grade II (pseudonormalization pattern). MMode 2D Measurements and Calculations IVSd 0.97 cm LVIDd 5.5 cm LVIDs 3.7 cm LVPWd 1.1 cm IVS/LVPW 0.88 FS 31.9 % EDV(Teich) 145.7 ml ESV(Teich) 59.0 ml EF(Teich) 59.5 % EDV(cubed) 163.8 ml ESV(cubed) 51.7 ml EF(cubed) 68.5 % LV mass(C)d 221.3 grams LV mass(C)dI 87.7 grams/m\S\2 SV(Teich) 86.6 ml SI(Teich) 34.3 ml/m\S\2 SV(cubed) 112.1 ml SI(cubed) 44.5 ml/m\S\2 Ao root diam 3.4 cm Ao root area 9.2 cm\S\2 ACS 1.8 cm asc Aorta Diam 3.2 cm LVOT diam 2.0 cm LVOT area 3.1 cm\S\2 LVAd ap4 25.3 cm\S\2 LVLd ap4 7.8 cm EDV(MOD-sp4) 68.9 ml EDV(sp4-el) 69.6 ml LVAs ap4 12.8 cm\S\2 LVLs ap4 5.8 cm ESV(MOD-sp4) 23.9 ml ESV(sp4-el) 24.1 ml EF(MOD-sp4) 65.4 % EF(sp4-el) 65.4 % LVAd ap2 22.8 cm\S\2 LVLd ap2 7.0 cm EDV(MOD-sp2) 60.9 ml EDV(sp2-el) 63.0 ml LVAs ap2 11.8 cm\S\2 LVLs ap2 5.3 cm ESV(MOD-sp2) 21.8 ml ESV(sp2-el) 22.1 ml EF(MOD-sp2) 64.2 % EF(sp2-el) 65.0 % LVLd %diff -11.33 % EDV(MOD-bp) 67.3 ml LVLs %diff -8.34 % ESV(MOD-bp) 23.8 ml EF(MOD-bp) 64.7 % SV(MOD-sp4) 45.1 ml SI(MOD-sp4) 17.9 ml/m\S\2 SV(MOD-sp2) 39.1 ml SI(MOD-sp2) 15.5 ml/m\S\2 SV(MOD-bp) 43.6 ml SI(MOD-bp) 17.3 ml/m\S\2 SV(sp4-el) 45.5 ml SI(sp4-el) 18.1 ml/m\S\2 SV(sp2-el) 40.9 ml SI(sp2-el) 16.2 ml/m\S\2 Doppler Measurements and Calculations MV E max jaswinder 103.9 cm/sec MV A max jaswinder 91.5 cm/sec MV E/A 1.1 MV dec time 0.33 sec Ao V2 max 126.3 cm/sec Ao max PG 6.4 mmHg Ao max PG (full) 0.54 mmHg AGNES(V,A) 3.0 cm\S\2 AGNES(V,D) 3.0 cm\S\2 LV V1 max PG 5.8 mmHg LV V1 max 120.8 cm/sec TR max jaswinder 280.4 cm/sec
[2018-05-14] MEDS ORDERED: POTASSIUM CHLORIDE 10 MEQ TABCR PO SCH (09:00)
--- NOTE | 2018-05-14 09:15 | Clinical Documentation Query ---
CLINICAL DOCUMENTATION QUERY 82 yo female admitted for acute on chronic volume overload. Echo showed EF 60-65% and Grade II diastolic dysfunction and BNP = 4816. Patient is on a Lasix drip and takes Torsemide 20mg PO at home. In your clinical opinion is this patient being managed for: ( ) Acute on chronic diastolic (congestive) heart failure ( x ) Not Agree (would expect signs of CHF on chest x-ray which were not seen) ( ) Other explanation of clinical findings (No explanation is considered a No Response) ( ) Unable to determine ( ) Need to Discuss (Phone CDS or qliq) (No discussion is considered a No Response) The medical record reflects the following clinical findings, treatment, and risk factors. Clinical Indicators: As above, bilateral lower extremity edema Treatment: As above, ICU, echo Risk Factors: HTN, CKD DM, age, medication noncompliance Please clarify and document your clinical opinion in the progress notes and discharge summary. Terms such as "probable", "suspected", "likely", "questionable", "possible", or "still to be ruled out" are acceptable. IF IN AGREEMENT, YOU MUST DOCUMENT ABOVE DIAGNOSTIC STATEMENT IN DAILY PROGRESS NOTES AND DISCHARGE SUMMARY. This document is not part of the patient's record. Thank You, Maddi Francois RN, MSN [phone]
[2018-05-14 10:05] VITALS: BP 128/50; PULSE 62; TEMP 36.5; O2SAT 95
[2018-05-14 10:16] VITALS: BP 128/50; PULSE 62; TEMP 36.7; O2SAT 95
[2018-05-14 11:14] VITALS: BP 132/82; PULSE 64; TEMP 36.7; O2SAT 95
--- NOTE | 2018-05-14 11:35 | CARDIOLOGY CONSULTATION ---
DATE OF CONSULTATION: 05/14/2018 CONSULTATION REQUESTED BY: Dr. Velvet Andrew. REASON FOR CONSULTATION: Marked volume overload. HISTORY OF PRESENT ILLNESS: Mrs. Ramos is a very pleasant 82-year-old woman who normally follows with Cornelia Ramos and Dr. Sun of cardiology practice. She presented to her routinely scheduled outpatient followup with Dr. Sun on the and was found to be markedly volume overloaded. The patient and her son at that time states that she has been having progressively worsening lower extremity edema over the last several months to the point where now the patient was unable to ambulate and ride in a motorized scooter. She does have a past medical history consistent with lymphedema and has been having difficulty tolerating physical therapy as well as lower extremity compression. At the time of the evaluation with Dr. Sun, her legs were found to be severely edematous with weeping clear fluid below the knees. Her diuretic management has been complicated in the past due to her difficulty ambulating to the restroom and she has not been able to tolerate it previously. Otherwise, she states that her breathing has been getting a little bit more short winded as of late with activity, but again it is really her legs that have been limiting her activity. Otherwise, she denies any chest pain, palpitations, lightheadedness, dizziness, or syncope and she has been taking her medications as directed without issue. PAST SURGICAL HISTORY: 1. Total abdominal hysterectomy. 2. Tubal ligation. 3. Tachybrady syndrome, status post Medtronic dual chamber permanent pacemaker placement in 2013. MEDICAL ILLNESSES: 1. Chronic venous insufficiency. 2. Lymphedema. 3. Obesity. 4. Paroxysmal atrial fibrillation on chronic sotalol and Coumadin therapy. 5. Stage 3 chronic kidney disease. 6. Diabetes. 7. Tachybrady syndrome, status post permanent pacemaker placement. 8. Neuralgia. 9. History of PE. 10. Hypothyroidism. FAMILY HISTORY: Noncontributory. SOCIAL HISTORY: The patient denies any alcohol, tobacco, or recreational drug use. She is . She has 1 child. She is a retired government ward secretary. REVIEW OF SYSTEMS: As per HPI, all other review of systems reviewed and negative at this time. ALLERGIES: 1. YOEL INHIBITOR. 2. AMOXICILLIN. 3. BEE STINGS. 4. CLAVULANIC ACID. 5. LATEX. 6. SULFA. MEDICATIONS AN OUTPATIENT: 1. Magnesium oxide 400 mg b.i.d. 2. Simvastatin 20 mg daily. 3. Torsemide 20 mg daily. 4. Coumadin as directed by [facility]. 5. Potassium chloride 10 mEq daily. 6. Sotalol 40 mg b.i.d. 7. Neurontin 3 times a day. 8. Metoprolol tartrate 25 mg b.i.d. 9. Insulin as directed. 10. Advair Diskus. 11. Levoxyl daily. PHYSICAL EXAMINATION: VITALS: Temperature 36.7, pulse 64, respiratory rate 12, blood pressure 136/61. GENERAL: Awake, alert, and oriented x3, in no acute distress. HEENT: Normocephalic, atraumatic. Pupils equal, round, reactive to light and accommodation. Extraocular muscles intact. Anicteric sclerae. Moist mucous membranes. Hard of hearing. NECK: No JVD, no bruit. CARDIOVASCULAR: Regular, but distant. Unable to appreciate murmurs, rubs, or gallops. PULMONARY: Poor air movement at the bilateral bases, otherwise clear with no rales, rhonchi, or wheezing. ABDOMEN: Bowel sounds x4, obese. No rebound, guarding, or tenderness. No organomegaly. EXTREMITIES: Profound bilateral lower extremity pitting edema with active weeping of clear fluid. No cyanosis or clubbing. Unable to appreciate pedal pulses bilaterally due to fluid. TEST RESULTS/LABORATORY STUDIES OF SIGNIFICANCE: Sodium 144, potassium 3.8, BUN 32, creatinine 1.48. A 12-lead EKG performed upon arrival independently reviewed at this time shows a ventricularly paced rhythm at 60 beats per minute. IMPRESSION: 1. Significant lower extremity volume overload, multifactorial. 2. Paroxysmal atrial fibrillation, currently in normal sinus rhythm on chronic Coumadin and sotalol. 3. Stage 3 chronic kidney disease. 4. Diabetes. 5. Obesity. 6. History of lymphedema. RECOMMENDATIONS: It is my pleasure to see Mrs. Ramos in consultation today. From a cardiac standpoint, the patient has already been started on appropriate Lasix drip as per Dr. Sun's initial recommendations and she has been diuresing very well. Given the profound amount of her volume overload, I do believe it will likely take several days of continued diuresis until we are able to reach her dry weight. In the meantime, she will be continued on the drip. Her outpatient sotalol, metoprolol, and warfarin will be continued and we will transition her back to her oral torsemide once she has reached her dry weight. Otherwise, we will continue to monitor her electrolytes and replete as necessary.
[2018-05-14 13:39] VITALS: Ht 167.6 cm; Wt 137.4 kg
[2018-05-14 15:37] VITALS: TEMP 36.7
[2018-05-14] MEDS: WARFARIN SOD 3 MG TAB PO SCH (15:49)
[2018-05-14] MEDS: NEPHROCAPS PO SCH (15:49)
[2018-05-14] MEDS: BOOST GLUCOSE CONTROL VANILLA PO SCH (17:35)
[2018-05-14 19:34] VITALS: BP 179/65; PULSE 87; TEMP 36.6; O2SAT 96
[2018-05-14] MEDS: SIMVASTATIN 20 MG TAB PO SCH (21:15)
--- NOTE | 2018-05-14 21:41 | Progress Note ---
Medicine Progress Note Date & Time of Visit: May 14, 2018 at ~ 18:30 . Subjective CC: Follow-up visit for fluid overload and other problems. HPI: Persistent dependent edema. No chest pain. No cough or shortness of breath. ROS: General- no fever, no chills Resp- as noted above in HPI Cardiac- as noted above in HPI GI- no nausea, no vomiting, no diarrhea, no constipation - Knox catheter . Objective Last 8 Hrs Date Time Temp Pulse Resp B/P (MAP) Pulse Ox O2 Delivery O2 Flow Rate FiO2 05/14/18 19:34 36.6 87 16 179/65 (103) 96 Room Air 05/14/18 15:37 36.7 Physical Exam: General- lying in bed, no distress Lungs- clear to auscultation; no respiratory distress Cardiovascular- RRR; no murmur or gallop appreciated; no JVD appreciated; marked lymphedema Abdomen- + bowel sounds, soft, nontender Extremities- no cyanosis; no calf tenderness Neuro- alert, oriented Skin- warm & dry . Laboratory Results: Last 24 Hours Test 05/14/18 05:42 05/14/18 07:40 05/14/18 11:50 05/14/18 16:10 White Blood Count 5.67 K/uL Red Blood Count 3.37 M/uL Hemoglobin 10.5 g/dL Hematocrit 32.2 % Mean Corpuscular Volume 95.5 fL Mean Corpuscular Hemoglobin 31.2 pg Mean Corpuscular Hemoglobin Concent 32.6 g/dl RDW Standard Deviation 55.8 fL RDW Coefficient of Variation 16.4 % Platelet Count 225 K/uL Mean Platelet Volume 10.4 fL Prothrombin Time 18.7 SECONDS Prothromb Time International Ratio 1.8 Sodium Level 144 mmol/L Potassium Level 3.8 mmol/L Chloride Level 105 mmol/L Carbon Dioxide Level 33 mmol/L Anion Gap 6.0 mmol/L Blood Urea Nitrogen 32 mg/dl Creatinine 1.48 mg/dl Est Creatinine Clear Calc Drug Dose 45.5 ml/min Estimated GFR () 37.8 Estimated GFR (Non- 32.6 BUN/Creatinine Ratio 21.9 Random Glucose 90 mg/dl Estimated Average Glucose 120 mg/dl Hemoglobin A1c 5.8 % Calcium Level 9.0 mg/dl Phosphorus Level 3.4 mg/dl Magnesium Level 2.0 mg/dl Bedside Glucose 102 mg/dl 97 mg/dl 92 mg/dl Test 05/14/18 20:00 Bedside Glucose 118 mg/dl Assessment & Plan FLUID OVERLOAD / LYMPHEDEMA Chronic lower extremity edema due to venous insufficiency and lymphedema. Chest x-ray showed cardiomegaly, but no pulmonary vascular congestion. Echocardiogram showed normal left ventricular systolic function, grade II diastolic dysfunction; right ventricle was poorly visualized with normal systolic function, no TR. Currently on furosemide infusion. PAROXYSMAL ATRIAL FIBRILLATION Currently in ventricular paced rhythm. Continue sotalol, metoprolol, warfarin. GERD Continue PPI. CKD III Serum creatinine at time of admission 1.46. Creatinine today = 1.48. Follow. DM TYPE 2 Well-controlled. Hemoglobin A1c 5.8. Fasting blood sugar this morning = 102. Continue insulin coverage. HYPOTHYROIDISM TSH 2.060. Continue levothyroxine. MORBID OBESITY Weight 156.8 kg, BMI 55.8 kg/m2. AHA diet. VTE PROPHYLAXIS Continue warfarin. DISPOSITION To be determined. . Current Inpatient Medications: Current Inpatient Medications Medications (Trade) Dose Ordered Sig/Elly Route Start Time Stop Time Status Last Admin Dose Admin Acetaminophen (Tylenol Tab) 650 mg Q4H PRN PO 05/13/18 13:30 06/12/18 13:29 05/14/18 02:44 650 MG Ondansetron HCl (Zofran Inj) 4 mg Q6H PRN IV 05/13/18 13:30 06/12/18 13:29 Nitroglycerin (Nitrostat Tab) 0.4 mg QD PRN SL 05/13/18 13:30 06/12/18 13:29 Polyethylene (Miralax Powder Packet) 17 gm DAILY PRN PO 05/13/18 13:30 06/12/18 13:29 Furosemide 100 mg/ Dextrose 100 ml @ 10 mls/hr Q10H IV 05/13/18 16:00 06/12/18 15:59 05/14/18 12:44 10 MLS/HR Glucose (Glucose 40% Gel) 15-30 GRAMS 15 GRAMS... UD PRN PO 05/13/18 15:30 06/12/18 15:29 Glucose (Glucose Chew Tab) 4-8 Tablets 4 Tabl... UD PRN PO 05/13/18 15:30 06/12/18 15:29 Dextrose (Dextrose 50% 50ML Syringe) 25-50ML 25ML FOR ... UD PRN IV 05/13/18 15:30 06/12/18 15:29 Glucagon (Glucagon Inj) 1 mg UD PRN SQ 05/13/18 15:30 06/12/18 15:29 Carbohydrates (Carbohydrates For Hypoglycemia) 15-30 GRAMS 15 grams if BSG 54-69... UD PRN PO 05/13/18 15:30 06/12/18 15:29 Diclofenac Sodium (Voltaren 1% Top Gel) 1 appln QID PRN EXT 05/13/18 16:00 06/12/18 15:59 Salmeterol Xinafoate/ Fluticasone (Advair Diskus 250/50 Inh) 1 puff BID INH 05/13/18 21:00 06/12/18 20:59 05/14/18 21:13 1 PUFF Gabapentin (Neurontin Cap) 300 mg TID PO 05/13/18 21:00 06/12/18 20:59 05/14/18 21:15 300 MG Levothyroxine Sodium (Synthroid Tab) 100 mcg DAILYBB PO 05/14/18 06:00 06/13/18 05:59 05/14/18 06:32 100 MCG Magnesium Oxide (Mag-Ox Tab) 400 mg BID PO 05/13/18 21:00 06/12/18 20:59 05/14/18 21:14 400 MG Metoprolol Tartrate (Lopressor Tab) 25 mg BID PO 05/13/18 21:00 06/12/18 20:59 05/14/18 21:14 25 MG Multivitamins/ Minerals (Multivitamin W/ Minerals Tab) 1 tab DAILY PO 05/14/18 09:00 06/13/18 08:59 05/14/18 08:21 1 TAB Potassium Chloride (Klor-Con M10) 10 meq DAILY PO 05/14/18 09:00 06/13/18 08:59 05/14/18 08:24 10 MEQ Simvastatin (Zocor Tab) 20 mg QPM PO 05/13/18 21:00 06/12/18 20:59 05/14/18 21:15 20 MG Sotalol HCl (Betapace Tab) 40 mg BID PO 05/13/18 21:00 06/12/18 20:59 05/14/18 21:13 40 MG Vitamin B Complex/ Vit C/Folic Acid (Nephrocaps) 1 cap MoWeFr@1600 PO 05/14/18 16:00 06/13/18 15:59 05/14/18 15:49 1 CAP Warfarin Sodium (Coumadin Tab) 3 mg DAILY@1600 PO 05/13/18 16:00 06/12/18 15:59 05/14/18 15:49 3 MG Cholecalciferol (Vitamin D Tab) 2,000 inter.unit DAILY PO 05/14/18 09:00 06/13/18 08:59 05/14/18 08:20 2,000 INTER.UNIT Pantoprazole Sodium (Protonix Tab) 40 mg QAM PO 05/14/18 09:00 06/13/18 08:59 05/14/18 08:20 40 MG Insulin Aspart (novoLOG ASPART) SLIDING SCALE If C... ACHS SC 05/13/18 16:15 06/12/18 16:14 05/14/18 17:34 5 UNITS Enteral Nutritional Formula (Boost Glucose Control) 1 can BIDM PO 05/14/18 16:45 06/13/18 16:44
[2018-05-15] VITALS (9 sets, daily range): BP systolic 120–148; BP diastolic 53–72; PULSE 61–67; TEMP 36.4–36.8; O2SAT 91–96
[2018-05-15] MEDS: LEVOTHYROXINE 100 MCG TAB PO SCH (06:21)
[2018-05-15] MEDS: BOOST GLUCOSE CONTROL VANILLA PO SCH ×2 (07:30→16:45)
[2018-05-15 08:14] LABS: INR 1.7 (0.9-1.1)
[2018-05-15 08:35] LABS: CALCIUM 9.1 mg/dl (8.5-10.1); CREATININE 1.57 mg/dl (0.60-1.20); POTASSIUM 3.5 mmol/L (3.5-5.1)
--- NOTE | 2018-05-15 08:53 | Cardiology Follow-Up ---
Subjective Subjective Date of Service: May 15, 2018. Additional Details: The patient had an uneventful night. She states she feels better. Weight is trending down. Problem List Medical Problems: (1) Cellulitis of left lower extremity Status: Acute Review of Systems Cardiac: + edema Endo: + fatigue Objective Vital Signs Last Vital Signs Documentation Date Time Temp Pulse Resp B/P (MAP) Pulse Ox O2 Delivery O2 Flow Rate FiO2 05/15/18 04:19 36.5 63 18 132/59 (83) 93 Room Air Physical Exam: General Appearance: no apparent distress, + obese ENT: hearing grossly normal Respiratory/Chest: no respiratory distress, no accessory muscle use Cardiovascular: regular rate, rhythm Abdomen: normal bowel sounds, non tender, soft, no organomegaly Extremities: + swelling, + pertinent finding Neurologic/Psychiatric: alert, normal mood/affect Skin: warm/dry, no rash Lymphatic: no adenopathy Assessment and Plan IMPRESSION: 1. Significant lower extremity volume overload, multifactorial. 2. Paroxysmal atrial fibrillation, currently in normal sinus rhythm on chronic Coumadin and sotalol. 3. Stage 3 chronic kidney disease. 4. Diabetes. 5. Obesity. 6. History of lymphedema. Recommendations: Patient states she feels better. She is still caring a lot of fluid in in addition to the loop diuretic I have added a thiazide. Replacing electrolytes and continuing current antiarrhythmics. Medications: Current Inpatient Medications Medications (Trade) Dose Ordered Sig/Elly Route Start Time Stop Time Status Last Admin Dose Admin Acetaminophen (Tylenol Tab) 650 mg Q4H PRN PO 05/13/18 13:30 06/12/18 13:29 05/14/18 02:44 650 MG Ondansetron HCl (Zofran Inj) 4 mg Q6H PRN IV 05/13/18 13:30 06/12/18 13:29 Nitroglycerin (Nitrostat Tab) 0.4 mg QD PRN SL 05/13/18 13:30 06/12/18 13:29 Polyethylene (Miralax Powder Packet) 17 gm DAILY PRN PO 05/13/18 13:30 06/12/18 13:29 Furosemide 100 mg/ Dextrose 100 ml @ 10 mls/hr Q10H IV 05/13/18 16:00 06/12/18 15:59 05/14/18 22:43 10 MLS/HR Glucose (Glucose 40% Gel) 15-30 GRAMS 15 GRAMS... UD PRN PO 05/13/18 15:30 06/12/18 15:29 Glucose (Glucose Chew Tab) 4-8 Tablets 4 Tabl... UD PRN PO 05/13/18 15:30 06/12/18 15:29 Dextrose (Dextrose 50% 50ML Syringe) 25-50ML 25ML FOR ... UD PRN IV 05/13/18 15:30 06/12/18 15:29 Glucagon (Glucagon Inj) 1 mg UD PRN SQ 05/13/18 15:30 06/12/18 15:29 Carbohydrates (Carbohydrates For Hypoglycemia) 15-30 GRAMS 15 grams if BSG 54-69... UD PRN PO 05/13/18 15:30 06/12/18 15:29 Diclofenac Sodium (Voltaren 1% Top Gel) 1 appln QID PRN EXT 05/13/18 16:00 06/12/18 15:59 Salmeterol Xinafoate/ Fluticasone (Advair Diskus 250/50 Inh) 1 puff BID INH 05/13/18 21:00 06/12/18 20:59 05/14/18 21:13 1 PUFF Gabapentin (Neurontin Cap) 300 mg TID PO 05/13/18 21:00 06/12/18 20:59 05/14/18 21:15 300 MG Levothyroxine Sodium (Synthroid Tab) 100 mcg DAILYBB PO 05/14/18 06:00 06/13/18 05:59 05/15/18 06:21 100 MCG Magnesium Oxide (Mag-Ox Tab) 400 mg BID PO 05/13/18 21:00 06/12/18 20:59 05/14/18 21:14 400 MG Metoprolol Tartrate (Lopressor Tab) 25 mg BID PO 05/13/18 21:00 06/12/18 20:59 05/14/18 21:14 25 MG Multivitamins/ Minerals (Multivitamin W/ Minerals Tab) 1 tab DAILY PO 05/14/18 09:00 06/13/18 08:59 05/14/18 08:21 1 TAB Potassium Chloride (Klor-Con M10) 10 meq DAILY PO 05/14/18 09:00 06/13/18 08:59 7/20/18 08:24 10 MEQ Simvastatin (Zocor Tab) 20 mg QPM PO 05/13/18 21:00 06/12/18 20:59 05/14/18 21:15 20 MG Sotalol HCl (Betapace Tab) 40 mg BID PO 05/13/18 21:00 06/12/18 20:59 05/14/18 21:13 40 MG Vitamin B Complex/ Vit C/Folic Acid (Nephrocaps) 1 cap MoWeFr@1600 PO 05/14/18 16:00 06/13/18 15:59 05/14/18 15:49 1 CAP Warfarin Sodium (Coumadin Tab) 3 mg DAILY@1600 PO 05/13/18 16:00 06/12/18 15:59 05/14/18 15:49 3 MG Cholecalciferol (Vitamin D Tab) 2,000 inter.unit DAILY PO 05/14/18 09:00 06/13/18 08:59 05/14/18 08:20 2,000 INTER.UNIT Pantoprazole Sodium (Protonix Tab) 40 mg QAM PO 05/14/18 09:00 06/13/18 08:59 05/14/18 08:20 40 MG Insulin Aspart (novoLOG ASPART) SLIDING SCALE If C... ACHS SC 05/13/18 16:15 06/12/18 16:14 05/14/18 17:34 5 UNITS Enteral Nutritional Formula (Boost Glucose Control) 1 can BIDM PO 05/14/18 16:45 06/13/18 16:44 Cefuroxime Axetil (Ceftin Tab) 500 mg BID PO 05/15/18 09:00 05/20/18 08:59 UNV Lab Results: Last 24 Hours Test 05/14/18 11:50 05/14/18 16:10 05/14/18 20:00 05/15/18 07:34 Bedside Glucose 97 mg/dl 92 mg/dl 118 mg/dl 94 mg/dl Test 05/15/18 07:35 Prothrombin Time 17.8 SECONDS Prothromb Time International Ratio 1.7 Sodium Level 141 mmol/L Potassium Level 3.5 mmol/L Chloride Level 100 mmol/L Carbon Dioxide Level 34 mmol/L Anion Gap 7.0 mmol/L Blood Urea Nitrogen 34 mg/dl Creatinine 1.57 mg/dl Est Creatinine Clear Calc Drug Dose 42.7 ml/min Estimated GFR () 35.2 Estimated GFR (Non- 30.4 BUN/Creatinine Ratio 21.9 Random Glucose 88 mg/dl Calcium Level 9.1 mg/dl
[2018-05-15] MEDS ORDERED: CIPROFLOXACIN 500 MG TAB PO SCH (09:00)
[2018-05-15] MEDS ORDERED: METOLAZONE 5 MG TAB PO ONE (09:00)
[2018-05-15] MEDS: GABAPENTIN 300 MG CAP PO SCH ×3 (09:24→21:33)
[2018-05-15] MEDS: FLUTICASONE/SALMETEROL 250/50 (ADVAIR) 14 PUFF/1 INHALER INH SCH ×2 (09:25→21:27)
[2018-05-15] MEDS: PANTOprazole SOD 40 MG TAB PO SCH (09:26)
[2018-05-15] MEDS: POTASSIUM CHLORIDE 10 MEQ TABCR PO SCH ×2 (09:26→21:34)
[2018-05-15] MEDS: CHOLECALCIFEROL 1000 INTER.UNIT TAB PO SCH (09:26)
[2018-05-15] MEDS: CEFUROXIME AXETIL 500 MG TAB PO SCH ×2 (09:26→21:33)
[2018-05-15] MEDS: CEROVITE ADV FORMULA TAB PO SCH (09:27)
[2018-05-15] MEDS: METOPROLOL TARTRATE 25 MG TAB PO SCH ×2 (09:27→21:34)
[2018-05-15] MEDS: SOTALOL HCL 80 MG TAB PO SCH ×2 (09:27→21:35)
[2018-05-15] MEDS: FUROSEMIDE INJ 100 MG in DEXTROSE 5% 100ML 90 ML IV SCH ×2 (09:29→21:24)
[2018-05-15] MEDS: INSULIN ASPART 100 UNITS/ML 3 ML PEN SC SCH ×4 (09:32→21:00)
[2018-05-15] MEDS: MAGNESIUM CHLORIDE 64MG DELAYED REL TAB PO SCH ×2 (09:42→21:35)
[2018-05-15] MEDS: WARFARIN SOD 3 MG TAB PO SCH (16:46)
--- NOTE | 2018-05-15 20:02 | Progress Note ---
Medicine Progress Note Date & Time of Visit: May 15, 2018 at 10:40 . Subjective CC: Follow-up visit for fluid overload and other problems. HPI: Hemodynamically stable with diuresis. Persistent dependent edema. No chest pain. No cough or shortness of breath. ROS: General- no fever, no chills Resp- as noted above in HPI Cardiac- as noted above in HPI GI- no nausea, no vomiting, no diarrhea, no constipation - Knox catheter . Objective Last 8 Hrs Date Time Temp Pulse Resp B/P (MAP) Pulse Ox O2 Delivery O2 Flow Rate FiO2 05/15/18 19:19 36.7 66 18 148/54 (85) 95 Room Air 05/15/18 15:17 36.4 63 18 148/62 (90) 96 Room Air Physical Exam: General- lying in bed, no distress Lungs- clear to auscultation; no respiratory distress Cardiovascular- RRR; no murmur or gallop appreciated; no JVD appreciated; marked lymphedema Abdomen- + bowel sounds, soft, nontender Extremities- no cyanosis; no calf tenderness Neuro- alert, oriented Skin- warm & dry . Laboratory Results: Last 24 Hours Test 05/15/18 07:34 05/15/18 07:35 05/15/18 11:14 05/15/18 16:26 Bedside Glucose 94 mg/dl 96 mg/dl 95 mg/dl Prothrombin Time 17.8 SECONDS Prothromb Time International Ratio 1.7 Sodium Level 141 mmol/L Potassium Level 3.5 mmol/L Chloride Level 100 mmol/L Carbon Dioxide Level 34 mmol/L Anion Gap 7.0 mmol/L Blood Urea Nitrogen 34 mg/dl Creatinine 1.57 mg/dl Est Creatinine Clear Calc Drug Dose 42.7 ml/min Estimated GFR () 35.2 Estimated GFR (Non- 30.4 BUN/Creatinine Ratio 21.9 Random Glucose 88 mg/dl Calcium Level 9.1 mg/dl Assessment & Plan FLUID OVERLOAD / LYMPHEDEMA Chronic lower extremity edema due to venous insufficiency and lymphedema. Chest x-ray showed cardiomegaly, but no pulmonary vascular congestion. Echocardiogram showed normal left ventricular systolic function, grade II diastolic dysfunction; right ventricle was poorly visualized with normal systolic function, no TR. Significant diuresis with furosemide infusion, but weight has not yet changed. Continue furosemide infusion. PAROXYSMAL ATRIAL FIBRILLATION Currently in ventricular paced rhythm. Continue sotalol, metoprolol, warfarin. GERD Continue PPI. CKD III Serum creatinine at time of admission 1.46. Creatinine today = 1.57. Follow. DM TYPE 2 Well-controlled. Hemoglobin A1c 5.8. Fasting blood sugar this morning = 96. Continue insulin coverage. HYPOTHYROIDISM TSH 2.060. Continue levothyroxine. MORBID OBESITY Weight 156.8 kg, BMI 55.8 kg/m2. AHA diet. UTI (present on admission) Urine culture grew Providencia alcalifaciens. Rx with cefuroxime per sensitivities. VTE PROPHYLAXIS Continue warfarin. DISPOSITION Expected return to [facility]. . Current Inpatient Medications: Current Inpatient Medications Medications (Trade) Dose Ordered Sig/Elly Route Start Time Stop Time Status Last Admin Dose Admin Acetaminophen (Tylenol Tab) 650 mg Q4H PRN PO 05/13/18 13:30 06/12/18 13:29 05/14/18 02:44 650 MG Ondansetron HCl (Zofran Inj) 4 mg Q6H PRN IV 05/13/18 13:30 06/12/18 13:29 Nitroglycerin (Nitrostat Tab) 0.4 mg QD PRN SL 05/13/18 13:30 06/12/18 13:29 Polyethylene (Miralax Powder Packet) 17 gm DAILY PRN PO 05/13/18 13:30 06/12/18 13:29 Furosemide 100 mg/ Dextrose 100 ml @ 10 mls/hr Q10H IV 05/13/18 16:00 06/12/18 15:59 05/15/18 09:29 10 MLS/HR Glucose (Glucose 40% Gel) 15-30 GRAMS 15 GRAMS... UD PRN PO 05/13/18 15:30 06/12/18 15:29 Glucose (Glucose Chew Tab) 4-8 Tablets 4 Tabl... UD PRN PO 05/13/18 15:30 06/12/18 15:29 Dextrose (Dextrose 50% 50ML Syringe) 25-50ML 25ML FOR ... UD PRN IV 05/13/18 15:30 06/12/18 15:29 Glucagon (Glucagon Inj) 1 mg UD PRN SQ 05/13/18 15:30 06/12/18 15:29 Carbohydrates (Carbohydrates For Hypoglycemia) 15-30 GRAMS 15 grams if BSG 54-69... UD PRN PO 05/13/18 15:30 06/12/18 15:29 Diclofenac Sodium (Voltaren 1% Top Gel) 1 appln QID PRN EXT 05/13/18 16:00 06/12/18 15:59 Salmeterol Xinafoate/ Fluticasone (Advair Diskus 250/50 Inh) 1 puff BID INH 05/13/18 21:00 06/12/18 20:59 05/15/18 09:25 1 PUFF Gabapentin (Neurontin Cap) 300 mg TID PO 05/13/18 21:00 06/12/18 20:59 05/15/18 16:45 300 MG Levothyroxine Sodium (Synthroid Tab) 100 mcg DAILYBB PO 05/14/18 06:00 06/13/18 05:59 05/15/18 06:21 100 MCG Metoprolol Tartrate (Lopressor Tab) 25 mg BID PO 05/13/18 21:00 06/12/18 20:59 05/15/18 09:27 25 MG Multivitamins/ Minerals (Multivitamin W/ Minerals Tab) 1 tab DAILY PO 05/14/18 09:00 06/13/18 08:59 05/15/18 09:27 1 TAB Simvastatin (Zocor Tab) 20 mg QPM PO 05/13/18 21:00 06/12/18 20:59 05/14/18 21:15 20 MG Sotalol HCl (Betapace Tab) 40 mg BID PO 05/13/18 21:00 06/12/18 20:59 05/15/18 09:27 40 MG Vitamin B Complex/ Vit C/Folic Acid (Nephrocaps) 1 cap MoWeFr@1600 PO 05/14/18 16:00 06/13/18 15:59 05/14/18 15:49 1 CAP Warfarin Sodium (Coumadin Tab) 3 mg DAILY@1600 PO 05/13/18 16:00 06/12/18 15:59 05/15/18 16:46 3 MG Cholecalciferol (Vitamin D Tab) 2,000 inter.unit DAILY PO 05/14/18 09:00 06/13/18 08:59 05/15/18 09:26 2,000 INTER.UNIT Pantoprazole Sodium (Protonix Tab) 40 mg QAM PO 05/14/18 09:00 06/13/18 08:59 05/15/18 09:26 40 MG Insulin Aspart (novoLOG ASPART) SLIDING SCALE If C... ACHS SC 05/13/18 16:15 06/12/18 16:14 05/15/18 16:48 5 UNITS Enteral Nutritional Formula (Boost Glucose Control) 1 can BIDM PO 05/14/18 16:45 06/13/18 16:44 Cefuroxime Axetil (Ceftin Tab) 500 mg BID PO 05/15/18 09:00 05/20/18 08:59 05/15/18 09:26 500 MG Potassium Chloride (Klor-Con M10) 20 meq BID PO 05/15/18 09:00 06/13/18 08:59 05/15/18 09:26 20 MEQ Magnesium Chloride (Slow-Mag Tab) 64 mg BID PO 05/15/18 09:00 06/14/18 08:59 05/15/18 09:42 64 MG
[2018-05-15] MEDS: SIMVASTATIN 20 MG TAB PO SCH (21:33)
[2018-05-16 04:01] VITALS: BP 147/74; PULSE 65; TEMP 36.4; O2SAT 93
[2018-05-16] MEDS: LEVOTHYROXINE 100 MCG TAB PO SCH (05:48)
[2018-05-16 06:30] LABS: INR 1.6 (0.9-1.1)
[2018-05-16 06:53] LABS: CALCIUM 9.5 mg/dl (8.5-10.1); CREATININE 1.62 mg/dl (0.60-1.20); POTASSIUM 3.5 mmol/L (3.5-5.1)
[2018-05-16 07:26] VITALS: BP 143/67; PULSE 60; TEMP 36.8; O2SAT 93
[2018-05-16] MEDS: BOOST GLUCOSE CONTROL VANILLA PO SCH ×2 (07:30→16:21)
[2018-05-16] MEDS: FUROSEMIDE INJ 100 MG in DEXTROSE 5% 100ML 90 ML IV SCH ×2 (07:53→20:03)
[2018-05-16] MEDS: FLUTICASONE/SALMETEROL 250/50 (ADVAIR) 14 PUFF/1 INHALER INH SCH ×2 (07:53→20:30)
[2018-05-16] MEDS: PANTOprazole SOD 40 MG TAB PO SCH (07:54)
[2018-05-16] MEDS: CEROVITE ADV FORMULA TAB PO SCH (07:54)
[2018-05-16] MEDS: GABAPENTIN 300 MG CAP PO SCH ×3 (07:54→20:30)
[2018-05-16] MEDS: CHOLECALCIFEROL 1000 INTER.UNIT TAB PO SCH (07:54)
[2018-05-16] MEDS: MAGNESIUM CHLORIDE 64MG DELAYED REL TAB PO SCH ×2 (07:55→20:31)
[2018-05-16] MEDS: POTASSIUM CHLORIDE 10 MEQ TABCR PO SCH ×2 (07:55→20:31)
[2018-05-16] MEDS: CEFUROXIME AXETIL 500 MG TAB PO SCH ×2 (07:55→20:30)
[2018-05-16] MEDS: METOPROLOL TARTRATE 25 MG TAB PO SCH ×2 (07:56→20:30)
[2018-05-16] MEDS: SOTALOL HCL 80 MG TAB PO SCH ×2 (07:56→20:31)
[2018-05-16] MEDS: INSULIN ASPART 100 UNITS/ML 3 ML PEN SC SCH ×4 (07:57→20:33)
[2018-05-16] MEDS ORDERED: WARFARIN SOD 5 MG TAB PO ONE (09:00)
[2018-05-16 11:16] VITALS: BP 160/79; PULSE 61; TEMP 36.7; O2SAT 91
--- NOTE | 2018-05-16 12:42 | Cardiology Follow-Up ---
Subjective Subjective Date of Service: May 16, 2018. Pt evaluation today including: conversation w/ patient, physical exam, chart review, lab review, review of studies, review of inpatient medication list Additional Details: The patient had an uneventful night. Large diuresis after being given Zaroxolyn. Weight is down 7 kg. Problem List Medical Problems: (1) Cellulitis of left lower extremity Status: Acute Review of Systems Cardiac: + edema Endo: + fatigue Objective Vital Signs Last Vital Signs Documentation Date Time Temp Pulse Resp B/P (MAP) Pulse Ox O2 Delivery O2 Flow Rate FiO2 05/16/18 11:16 36.7 61 20 160/79 (106) 91 Room Air Physical Exam: General Appearance: no apparent distress, + obese ENT: hearing grossly normal Respiratory/Chest: no respiratory distress, no accessory muscle use Cardiovascular: regular rate, rhythm Abdomen: normal bowel sounds, non tender, soft, no organomegaly Extremities: + swelling, + pertinent finding Neurologic/Psychiatric: alert, normal mood/affect Skin: warm/dry, no rash Lymphatic: no adenopathy Assessment and Plan IMPRESSION: 1. Significant lower extremity volume overload, multifactorial. 2. Paroxysmal atrial fibrillation, currently in normal sinus rhythm on chronic Coumadin and sotalol. 3. Stage 3 chronic kidney disease. 4. Diabetes. 5. Obesity. 6. History of lymphedema. Recommendations: The patient is still significantly volume overloaded. I would continue the Lasix drip for now. Reassess tomorrow. Medications: Current Inpatient Medications Medications (Trade) Dose Ordered Sig/Elly Route Start Time Stop Time Status Last Admin Dose Admin Acetaminophen (Tylenol Tab) 650 mg Q4H PRN PO 05/13/18 13:30 06/12/18 13:29 05/14/18 02:44 650 MG Ondansetron HCl (Zofran Inj) 4 mg Q6H PRN IV 05/13/18 13:30 06/12/18 13:29 Nitroglycerin (Nitrostat Tab) 0.4 mg QD PRN SL 05/13/18 13:30 06/12/18 13:29 Polyethylene (Miralax Powder Packet) 17 gm DAILY PRN PO 05/13/18 13:30 06/12/18 13:29 Furosemide 100 mg/ Dextrose 100 ml @ 10 mls/hr Q10H IV 05/13/18 16:00 06/12/18 15:59 05/16/18 07:53 10 MLS/HR Glucose (Glucose 40% Gel) 15-30 GRAMS 15 GRAMS... UD PRN PO 05/13/18 15:30 06/12/18 15:29 Glucose (Glucose Chew Tab) 4-8 Tablets 4 Tabl... UD PRN PO 05/13/18 15:30 06/12/18 15:29 Dextrose (Dextrose 50% 50ML Syringe) 25-50ML 25ML FOR ... UD PRN IV 05/13/18 15:30 06/12/18 15:29 Glucagon (Glucagon Inj) 1 mg UD PRN SQ 05/13/18 15:30 06/12/18 15:29 Carbohydrates (Carbohydrates For Hypoglycemia) 15-30 GRAMS 15 grams if BSG 54-69... UD PRN PO 05/13/18 15:30 06/12/18 15:29 Diclofenac Sodium (Voltaren 1% Top Gel) 1 appln QID PRN EXT 05/13/18 16:00 06/12/18 15:59 Salmeterol Xinafoate/ Fluticasone (Advair Diskus 250/50 Inh) 1 puff BID INH 05/13/18 21:00 06/12/18 20:59 05/16/18 07:53 1 PUFF Gabapentin (Neurontin Cap) 300 mg TID PO 05/13/18 21:00 06/12/18 20:59 05/16/18 07:54 300 MG Levothyroxine Sodium (Synthroid Tab) 100 mcg DAILYBB PO 05/14/18 06:00 06/13/18 05:59 05/16/18 05:48 100 MCG Metoprolol Tartrate (Lopressor Tab) 25 mg BID PO 05/13/18 21:00 06/12/18 20:59 05/16/18 07:56 25 MG Multivitamins/ Minerals (Multivitamin W/ Minerals Tab) 1 tab DAILY PO 05/14/18 09:00 06/13/18 08:59 05/16/18 07:54 1 TAB Simvastatin (Zocor Tab) 20 mg QPM PO 05/13/18 21:00 06/12/18 20:59 05/15/18 21:33 20 MG Sotalol HCl (Betapace Tab) 40 mg BID PO 05/13/18 21:00 06/12/18 20:59 05/16/18 07:56 40 MG Vitamin B Complex/ Vit C/Folic Acid (Nephrocaps) 1 cap MoWeFr@1600 PO 05/14/18 16:00 06/13/18 15:59 05/14/18 15:49 1 CAP Warfarin Sodium (Coumadin Tab) 3 mg DAILY@1600 PO 05/13/18 16:00 06/12/18 15:59 05/15/18 16:46 3 MG Cholecalciferol (Vitamin D Tab) 2,000 inter.unit DAILY PO 05/14/18 09:00 06/13/18 08:59 05/16/18 07:54 2,000 INTER.UNIT Pantoprazole Sodium (Protonix Tab) 40 mg QAM PO 05/14/18 09:00 06/13/18 08:59 05/16/18 07:54 40 MG Insulin Aspart (novoLOG ASPART) SLIDING SCALE If C... ACHS SC 05/13/18 16:15 06/12/18 16:14 05/16/18 12:25 3 UNITS Enteral Nutritional Formula (Boost Glucose Control) 1 can BIDM PO 05/14/18 16:45 06/13/18 16:44 Cefuroxime Axetil (Ceftin Tab) 500 mg BID PO 05/15/18 09:00 05/20/18 08:59 05/16/18 07:55 500 MG Potassium Chloride (Klor-Con M10) 20 meq BID PO 05/15/18 09:00 06/13/18 08:59 05/16/18 07:55 20 MEQ Magnesium Chloride (Slow-Mag Tab) 64 mg BID PO 05/15/18 09:00 06/14/18 08:59 05/16/18 07:55 64 MG Lab Results: Last 24 Hours Test 05/15/18 16:26 05/15/18 20:52 05/16/18 05:46 05/16/18 07:26 Bedside Glucose 95 mg/dl 106 mg/dl 109 mg/dl Prothrombin Time 16.5 SECONDS Prothromb Time International Ratio 1.6 Sodium Level 139 mmol/L Potassium Level 3.5 mmol/L Chloride Level 97 mmol/L Carbon Dioxide Level 37 mmol/L Anion Gap 6.0 mmol/L Blood Urea Nitrogen 39 mg/dl Creatinine 1.62 mg/dl Est Creatinine Clear Calc Drug Dose 40.5 ml/min Estimated GFR () 33.9 Estimated GFR (Non- 29.3 BUN/Creatinine Ratio 24.0 Random Glucose 95 mg/dl Calcium Level 9.5 mg/dl Test 05/16/18 11:13 Bedside Glucose 112 mg/dl
--- NOTE | 2018-05-16 13:31 | Progress Note ---
Medicine Progress Note Date & Time of Visit: May 16, 2018 at 09:40 . Subjective CC: Follow-up visit for fluid overload and other problems. HPI: No new problems. Persistent dependent edema. No chest pain. No cough or shortness of breath. ROS: General- no fever, no chills Resp- as noted above in HPI Cardiac- as noted above in HPI GI- no nausea, no vomiting, no diarrhea, no constipation - Knox catheter . Objective Last 8 Hrs Date Time Temp Pulse Resp B/P (MAP) Pulse Ox O2 Delivery O2 Flow Rate FiO2 05/16/18 11:16 36.7 61 20 160/79 (106) 91 Room Air 05/16/18 08:00 Room Air 05/16/18 07:26 36.8 60 20 143/67 (92) 93 Room Air Physical Exam: General- lying in bed, no distress Lungs- clear to auscultation; no respiratory distress Cardiovascular- RRR; no murmur or gallop appreciated; no JVD appreciated; marked lymphedema Abdomen- + bowel sounds, soft, nontender Extremities- no cyanosis; no calf tenderness Neuro- alert, oriented Skin- warm & dry . Laboratory Results: Last 24 Hours Test 05/15/18 16:26 05/15/18 20:52 05/16/18 05:46 05/16/18 07:26 Bedside Glucose 95 mg/dl 106 mg/dl 109 mg/dl Prothrombin Time 16.5 SECONDS Prothromb Time International Ratio 1.6 Sodium Level 139 mmol/L Potassium Level 3.5 mmol/L Chloride Level 97 mmol/L Carbon Dioxide Level 37 mmol/L Anion Gap 6.0 mmol/L Blood Urea Nitrogen 39 mg/dl Creatinine 1.62 mg/dl Est Creatinine Clear Calc Drug Dose 40.5 ml/min Estimated GFR () 33.9 Estimated GFR (Non- 29.3 BUN/Creatinine Ratio 24.0 Random Glucose 95 mg/dl Calcium Level 9.5 mg/dl Test 05/16/18 11:13 Bedside Glucose 112 mg/dl Assessment & Plan FLUID OVERLOAD / LYMPHEDEMA Chronic lower extremity edema due to venous insufficiency and lymphedema. Chest x-ray showed cardiomegaly, but no pulmonary vascular congestion. Echocardiogram showed normal left ventricular systolic function, grade II diastolic dysfunction; right ventricle was poorly visualized with normal systolic function, no TR. Significant diuresis with furosemide infusion. Wt 156.6 kg --> --> 150.7 kg. Continue furosemide infusion and metolazone. PAROXYSMAL ATRIAL FIBRILLATION Currently in ventricular paced rhythm. Continue sotalol, metoprolol, warfarin. GERD Continue PPI. CKD III Serum creatinine at time of admission 1.46. Creatinine today = 1.62. Follow. DM TYPE 2 Well-controlled. Hemoglobin A1c 5.8. Fasting blood sugar this morning = 109. Continue insulin coverage. HYPOTHYROIDISM TSH 2.060. Continue levothyroxine. MORBID OBESITY Weight 156.8 kg, BMI 55.8 kg/m2. AHA diet. UTI (present on admission) Urine culture grew Providencia alcalifaciens. Rx with cefuroxime per sensitivities. Afebrile. AMBULATORY DYSFUNCTION PT / OT as tolerated. VTE PROPHYLAXIS Continue warfarin. DISPOSITION Expected return to [facility]. . Current Inpatient Medications: Current Inpatient Medications Medications (Trade) Dose Ordered Sig/Elly Route Start Time Stop Time Status Last Admin Dose Admin Acetaminophen (Tylenol Tab) 650 mg Q4H PRN PO 05/13/18 13:30 06/12/18 13:29 05/14/18 02:44 650 MG Ondansetron HCl (Zofran Inj) 4 mg Q6H PRN IV 05/13/18 13:30 06/12/18 13:29 Nitroglycerin (Nitrostat Tab) 0.4 mg QD PRN SL 05/13/18 13:30 06/12/18 13:29 Polyethylene (Miralax Powder Packet) 17 gm DAILY PRN PO 05/13/18 13:30 06/12/18 13:29 Furosemide 100 mg/ Dextrose 100 ml @ 10 mls/hr Q10H IV 05/13/18 16:00 06/12/18 15:59 05/16/18 07:53 10 MLS/HR Glucose (Glucose 40% Gel) 15-30 GRAMS 15 GRAMS... UD PRN PO 05/13/18 15:30 06/12/18 15:29 Glucose (Glucose Chew Tab) 4-8 Tablets 4 Tabl... UD PRN PO 05/13/18 15:30 06/12/18 15:29 Dextrose (Dextrose 50% 50ML Syringe) 25-50ML 25ML FOR ... UD PRN IV 05/13/18 15:30 06/12/18 15:29 Glucagon (Glucagon Inj) 1 mg UD PRN SQ 05/13/18 15:30 06/12/18 15:29 Carbohydrates (Carbohydrates For Hypoglycemia) 15-30 GRAMS 15 grams if BSG 54-69... UD PRN PO 05/13/18 15:30 06/12/18 15:29 Diclofenac Sodium (Voltaren 1% Top Gel) 1 appln QID PRN EXT 05/13/18 16:00 06/12/18 15:59 Salmeterol Xinafoate/ Fluticasone (Advair Diskus 250/50 Inh) 1 puff BID INH 05/13/18 21:00 06/12/18 20:59 05/16/18 07:53 1 PUFF Gabapentin (Neurontin Cap) 300 mg TID PO 05/13/18 21:00 06/12/18 20:59 05/16/18 07:54 300 MG Levothyroxine Sodium (Synthroid Tab) 100 mcg DAILYBB PO 05/14/18 06:00 06/13/18 05:59 05/16/18 05:48 100 MCG Metoprolol Tartrate (Lopressor Tab) 25 mg BID PO 05/13/18 21:00 06/12/18 20:59 05/16/18 07:56 25 MG Multivitamins/ Minerals (Multivitamin W/ Minerals Tab) 1 tab DAILY PO 05/14/18 09:00 06/13/18 08:59 05/16/18 07:54 1 TAB Simvastatin (Zocor Tab) 20 mg QPM PO 05/13/18 21:00 06/12/18 20:59 05/15/18 21:33 20 MG Sotalol HCl (Betapace Tab) 40 mg BID PO 05/13/18 21:00 06/12/18 20:59 05/16/18 07:56 40 MG Vitamin B Complex/ Vit C/Folic Acid (Nephrocaps) 1 cap MoWeFr@1600 PO 05/14/18 16:00 06/13/18 15:59 05/14/18 15:49 1 CAP Warfarin Sodium (Coumadin Tab) 3 mg DAILY@1600 PO 05/13/18 16:00 06/12/18 15:59 05/15/18 16:46 3 MG Cholecalciferol (Vitamin D Tab) 2,000 inter.unit DAILY PO 05/14/18 09:00 06/13/18 08:59 05/16/18 07:54 2,000 INTER.UNIT Pantoprazole Sodium (Protonix Tab) 40 mg QAM PO 05/14/18 09:00 06/13/18 08:59 05/16/18 07:54 40 MG Insulin Aspart (novoLOG ASPART) SLIDING SCALE If C... ACHS SC 05/13/18 16:15 06/12/18 16:14 05/16/18 12:25 3 UNITS Enteral Nutritional Formula (Boost Glucose Control) 1 can BIDM PO 05/14/18 16:45 06/13/18 16:44 Cefuroxime Axetil (Ceftin Tab) 500 mg BID PO 05/15/18 09:00 05/20/18 08:59 05/16/18 07:55 500 MG Potassium Chloride (Klor-Con M10) 20 meq BID PO 05/15/18 09:00 06/13/18 08:59 05/16/18 07:55 20 MEQ Magnesium Chloride (Slow-Mag Tab) 64 mg BID PO 05/15/18 09:00 06/14/18 08:59 05/16/18 07:55 64 MG
[2018-05-16] MEDS: WARFARIN SOD 3 MG TAB PO SCH (14:55)
[2018-05-16 15:40] VITALS: BP 130/73; PULSE 60; TEMP 36.7; O2SAT 96
[2018-05-16 19:24] VITALS: BP 127/73; PULSE 61; TEMP 36.7; O2SAT 93
[2018-05-16] MEDS: SIMVASTATIN 20 MG TAB PO SCH (20:31)
[2018-05-16 23:55] VITALS: BP 112/66; PULSE 60; TEMP 36.3; O2SAT 94
[2018-05-17 04:01] VITALS: BP 127/71; PULSE 60; TEMP 36.9; O2SAT 93
[2018-05-17] MEDS: LEVOTHYROXINE 100 MCG TAB PO SCH (05:58)
[2018-05-17] MEDS: FUROSEMIDE INJ 100 MG in DEXTROSE 5% 100ML 90 ML IV SCH (06:31)
[2018-05-17 07:13] LABS: INR 1.9 (0.9-1.1)
[2018-05-17 07:29] LABS: CALCIUM 9.2 mg/dl (8.5-10.1); CREATININE 1.78 mg/dl (0.60-1.20); POTASSIUM 3.3 mmol/L (3.5-5.1)
[2018-05-17 08:10] VITALS: BP 137/79; PULSE 60; TEMP 37; O2SAT 92
[2018-05-17] MEDS: BOOST GLUCOSE CONTROL VANILLA PO SCH ×2 (08:59→16:01)
[2018-05-17] MEDS: FLUTICASONE/SALMETEROL 250/50 (ADVAIR) 14 PUFF/1 INHALER INH SCH ×2 (09:39→19:48)
[2018-05-17] MEDS: CEROVITE ADV FORMULA TAB PO SCH (09:42)
[2018-05-17] MEDS: SOTALOL HCL 80 MG TAB PO SCH ×2 (09:42→19:49)
[2018-05-17] MEDS: CHOLECALCIFEROL 1000 INTER.UNIT TAB PO SCH (09:42)
[2018-05-17] MEDS: PANTOprazole SOD 40 MG TAB PO SCH (09:42)
[2018-05-17] MEDS: CEFUROXIME AXETIL 500 MG TAB PO SCH ×2 (09:43→19:49)
[2018-05-17] MEDS: MAGNESIUM CHLORIDE 64MG DELAYED REL TAB PO SCH ×2 (09:43→19:51)
[2018-05-17] MEDS: METOPROLOL TARTRATE 25 MG TAB PO SCH ×2 (09:43→19:50)
[2018-05-17] MEDS: GABAPENTIN 300 MG CAP PO SCH (09:43)
[2018-05-17] MEDS: POTASSIUM CHLORIDE 10 MEQ TABCR PO SCH ×2 (09:44→19:49)
[2018-05-17] MEDS: INSULIN ASPART 100 UNITS/ML 3 ML PEN SC SCH ×4 (09:46→20:58)
--- NOTE | 2018-05-17 10:20 | Cardiology Follow-Up ---
Subjective General Date of Service: May 17, 2018. Chief Complaint: follow up edema, volume overload Pt evaluation today including: conversation w/ patient, physical exam History of Present Illness The patient is a 82 year old female seen in follow up. Patient's urine output notable for 19 Liters of urine output thus far since admission. Edema still present, however improved. Labs suggest pt is trending toward intravascular volume depletion with CO2 , BUN , and creatinine trending up. Allergies Coded Allergies: Amoxicillin (Verified Allergy, Intermediate, DERMATITIS, 06/04/16) Clavulanic Acid (Verified Allergy, Intermediate, DERMATITIS, 06/04/16) Poison Jacinda Extract/Poison [place] Extra (Verified Allergy, Intermediate, RASH , 06/09/16) Sulfa Antibiotics (Verified Allergy, Intermediate, RASH, 06/09/16) BEE STING (Verified Allergy, Mild, RASH, 06/04/16) Latex (Verified Allergy, Unknown, UNKNOWN, 06/04/16) STATES WHEN SHE WENT FOR FLU SHOT THEY TOLD HER SHE WAS ALLERGIC TO LATEX YOEL Inhibitors (Verified Adverse Reaction, Mild, COUGH, 06/09/16) Social History Smoking Status: Never Smoker Hx Tobacco Use In Past Year?: No Hx Alcohol Use - Type And Amou: No Hx Substance Use - Type And Am: No Problem List Medical Problems: (1) Cellulitis of left lower extremity Status: Acute Physical Exam Vital Signs Last Vital Signs Documentation Date Time Temp Pulse Resp B/P (MAP) Pulse Ox O2 Delivery O2 Flow Rate FiO2 05/17/18 08:10 37.0 60 20 137/79 (98) 92 Room Air Physical Exam Constitutional: Level of Distress: chronically ill Neck: supple, trachea midline Lungs: Auscultation: no wheezing, no rales/crackles Cardiovascular: Heart Auscultation: RRR, no murmurs Abdomen: Inspection & Palpation: soft, non-distended, no tenderness, guarding & rebound Extremities: pertinent finding (2+ edema, trending toward improvement ) Neurologic: Gait & Station: pertinent finding (no focal deficits ) Assessment and Plan Assessment and Plan Impression: 82 year old female 1. Multifactorial volume overload, due to venous insufficiency, lymphedema, diastolic dysfunction 2. PAF, since pacemaker check in office on 05/13/18 as which time SR was present , she has reverted to a rate controlled AV with ventricular pacing. Plan: DC furosemide drip. Recheck labs on 05/18/18 will reassess either going back on furosemide infusion, bolus IV diuretic therapy, or oral torsemide. Proceed with physical therapy as tolerated. Replace potassium. Knox catheter to remain in place at present. Patient is on gabapentin for neuropathic pain which may of course increased fluid retention. Her dose of 300 mg 3 times daily will be reduced to 100 mg 3 times daily. Lyrica can also be implicated in fluid retention so I do not think this is a good alternative. Cymbalta may be a reasonable alternative and does not interact with her sotalol. INR had been subtherapeutic, it is trended up to 1.9, at present I do not think we need to bridge her continue current dose of coumadin. Laboratory Results Last 24 Hours Test 05/16/18 11:13 05/16/18 16:28 05/16/18 20:20 05/17/18 06:30 Bedside Glucose 112 mg/dl 129 mg/dl 323 mg/dl Prothrombin Time 19.7 SECONDS Prothromb Time International Ratio 1.9 Sodium Level 137 mmol/L Potassium Level 3.3 mmol/L Chloride Level 94 mmol/L Carbon Dioxide Level 36 mmol/L Anion Gap 7.0 mmol/L Blood Urea Nitrogen 40 mg/dl Creatinine 1.78 mg/dl Est Creatinine Clear Calc Drug Dose 36.3 ml/min Estimated GFR () 30.3 Estimated GFR (Non- 26.1 BUN/Creatinine Ratio 22.3 Random Glucose 96 mg/dl Calcium Level 9.2 mg/dl Test 05/17/18 07:36 Bedside Glucose 107 mg/dl
[2018-05-17 11:22] VITALS: BP 160/101; PULSE 64; TEMP 36.4; O2SAT 93
[2018-05-17] MEDS: POLYETHYLENE (MIRALAX) 17 GM PACK PO PRN (12:32)
[2018-05-17] MEDS: GABAPENTIN 100 MG CAP PO SCH ×2 (14:31→19:50)
[2018-05-17 15:28] VITALS: BP 147/95; PULSE 68; TEMP 36.7; O2SAT 93
[2018-05-17] MEDS: WARFARIN SOD 3 MG TAB PO SCH (16:04)
[2018-05-17] MEDS: NEPHROCAPS PO SCH (16:04)
[2018-05-17 19:25] VITALS: BP 141/75; PULSE 69; TEMP 37.4; O2SAT 93
[2018-05-17] MEDS: SIMVASTATIN 20 MG TAB PO SCH (19:51)
--- NOTE | 2018-05-17 20:53 | Progress Note ---
Medicine Progress Note Date & Time of Visit: May 17, 2018 at 1530 . Subjective CC: Follow-up visit for fluid overload and other problems. HPI: Weight down. Less dependent edema. No chest pain. No cough or shortness of breath. ROS: General- no fever, no chills Resp- as noted above in HPI Cardiac- as noted above in HPI GI- no nausea, no vomiting, no diarrhea: + constipation - Knox catheter . Objective Last 8 Hrs Date Time Temp Pulse Resp B/P (MAP) Pulse Ox O2 Delivery O2 Flow Rate FiO2 05/17/18 19:25 37.4 69 16 141/75 (97) 93 Room Air 05/17/18 15:28 36.7 68 18 147/95 (112) 93 Room Air Physical Exam: General- lying in bed, no distress Lungs- clear to auscultation; no respiratory distress Cardiovascular- RRR; no murmur or gallop appreciated; no JVD appreciated; marked lymphedema Abdomen- + bowel sounds, soft, nontender Extremities- no cyanosis; no calf tenderness Neuro- alert, oriented Skin- warm & dry . Laboratory Results: Last 24 Hours Test 05/17/18 06:30 05/17/18 07:36 05/17/18 11:22 05/17/18 16:16 Prothrombin Time 19.7 SECONDS Prothromb Time International Ratio 1.9 Sodium Level 137 mmol/L Potassium Level 3.3 mmol/L Chloride Level 94 mmol/L Carbon Dioxide Level 36 mmol/L Anion Gap 7.0 mmol/L Blood Urea Nitrogen 40 mg/dl Creatinine 1.78 mg/dl Est Creatinine Clear Calc Drug Dose 36.3 ml/min Estimated GFR () 30.3 Estimated GFR (Non- 26.1 BUN/Creatinine Ratio 22.3 Random Glucose 96 mg/dl Calcium Level 9.2 mg/dl Bedside Glucose 107 mg/dl 124 mg/dl 101 mg/dl Assessment & Plan FLUID OVERLOAD / LYMPHEDEMA Chronic lower extremity edema due to venous insufficiency and lymphedema. Chest x-ray showed cardiomegaly, but no pulmonary vascular congestion. Echocardiogram showed normal left ventricular systolic function, grade II diastolic dysfunction; right ventricle was poorly visualized with normal systolic function, no TR. Significant diuresis with furosemide infusion. Wt 156.6 kg --> --> 146.7 kg. Furosemide infusion held today because of rising creatine. PAROXYSMAL ATRIAL FIBRILLATION Currently in ventricular paced rhythm. Continue sotalol, metoprolol, warfarin. GERD Continue PPI. CKD III Serum creatinine at time of admission 1.46. Creatinine today = 1.78. Furosemide held today because of rising creatinine. Follow. DM TYPE 2 Well-controlled. Hemoglobin A1c 5.8. Fasting blood sugar this morning = 109. Continue insulin coverage. HYPOKALEMIA K today = 3.3. Replace, follow. HYPOTHYROIDISM TSH 2.060. Continue levothyroxine. MORBID OBESITY Weight 156.8 kg, BMI 55.8 kg/m2. AHA diet. UTI (present on admission) Urine culture grew Providencia alcalifaciens. Rx with cefuroxime per sensitivities. Afebrile. AMBULATORY DYSFUNCTION PT / OT as tolerated. VTE PROPHYLAXIS Continue warfarin. DISPOSITION Expected return to [facility]. . Current Inpatient Medications: Current Inpatient Medications Medications (Trade) Dose Ordered Sig/Elly Route Start Time Stop Time Status Last Admin Dose Admin Acetaminophen (Tylenol Tab) 650 mg Q4H PRN PO 05/13/18 13:30 06/12/18 13:29 05/14/18 02:44 650 MG Ondansetron HCl (Zofran Inj) 4 mg Q6H PRN IV 05/13/18 13:30 06/12/18 13:29 Nitroglycerin (Nitrostat Tab) 0.4 mg QD PRN SL 05/13/18 13:30 06/12/18 13:29 Polyethylene (Miralax Powder Packet) 17 gm DAILY PRN PO 05/13/18 13:30 06/12/18 13:29 05/17/18 12:32 17 GM Glucose (Glucose 40% Gel) 15-30 GRAMS 15 GRAMS... UD PRN PO 05/13/18 15:30 06/12/18 15:29 Glucose (Glucose Chew Tab) 4-8 Tablets 4 Tabl... UD PRN PO 05/13/18 15:30 06/12/18 15:29 Dextrose (Dextrose 50% 50ML Syringe) 25-50ML 25ML FOR ... UD PRN IV 05/13/18 15:30 06/12/18 15:29 Glucagon (Glucagon Inj) 1 mg UD PRN SQ 05/13/18 15:30 06/12/18 15:29 Carbohydrates (Carbohydrates For Hypoglycemia) 15-30 GRAMS 15 grams if BSG 54-69... UD PRN PO 05/13/18 15:30 06/12/18 15:29 Diclofenac Sodium (Voltaren 1% Top Gel) 1 appln QID PRN EXT 05/13/18 16:00 06/12/18 15:59 Salmeterol Xinafoate/ Fluticasone (Advair Diskus 250/50 Inh) 1 puff BID INH 05/13/18 21:00 06/12/18 20:59 05/17/18 19:48 1 PUFF Levothyroxine Sodium (Synthroid Tab) 100 mcg DAILYBB PO 05/14/18 06:00 06/13/18 05:59 05/17/18 05:58 100 MCG Metoprolol Tartrate (Lopressor Tab) 25 mg BID PO 05/13/18 21:00 06/12/18 20:59 05/17/18 19:50 25 MG Multivitamins/ Minerals (Multivitamin W/ Minerals Tab) 1 tab DAILY PO 05/14/18 09:00 06/13/18 08:59 05/17/18 09:42 1 TAB Simvastatin (Zocor Tab) 20 mg QPM PO 05/13/18 21:00 06/12/18 20:59 05/17/18 19:51 20 MG Sotalol HCl (Betapace Tab) 40 mg BID PO 05/13/18 21:00 06/12/18 20:59 05/17/18 19:49 40 MG Vitamin B Complex/ Vit C/Folic Acid (Nephrocaps) 1 cap MoWeFr@1600 PO 05/14/18 16:00 06/13/18 15:59 05/17/18 16:04 1 CAP Warfarin Sodium (Coumadin Tab) 3 mg DAILY@1600 PO 05/13/18 16:00 06/12/18 15:59 05/17/18 16:04 3 MG Cholecalciferol (Vitamin D Tab) 2,000 inter.unit DAILY PO 05/14/18 09:00 06/13/18 08:59 05/17/18 09:42 2,000 INTER.UNIT Pantoprazole Sodium (Protonix Tab) 40 mg QAM PO 05/14/18 09:00 06/13/18 08:59 05/17/18 09:42 40 MG Insulin Aspart (novoLOG ASPART) SLIDING SCALE If C... ACHS SC 05/13/18 16:15 06/12/18 16:14 05/17/18 12:31 2 UNITS Enteral Nutritional Formula (Boost Glucose Control) 1 can BIDM PO 05/14/18 16:45 06/13/18 16:44 Cefuroxime Axetil (Ceftin Tab) 500 mg BID PO 05/15/18 09:00 05/20/18 08:59 05/17/18 19:49 500 MG Potassium Chloride (Klor-Con M10) 20 meq BID PO 05/15/18 09:00 06/13/18 08:59 05/17/18 19:49 20 MEQ Magnesium Chloride (Slow-Mag Tab) 64 mg BID PO 05/15/18 09:00 06/14/18 08:59 05/17/18 19:51 64 MG Gabapentin (Neurontin Cap) 100 mg TID PO 05/17/18 14:00 06/16/18 13:59 05/17/18 19:50 100 MG
[2018-05-18 00:03] VITALS: BP 137/76; PULSE 67; TEMP 36.8; O2SAT 91
[2018-05-18 04:08] VITALS: BP 142/78; PULSE 76; TEMP 36.8; O2SAT 93
[2018-05-18] MEDS: LEVOTHYROXINE 100 MCG TAB PO SCH (06:08)
[2018-05-18 06:29] LABS: INR 2.2 (0.9-1.1)
[2018-05-18 06:55] LABS: CALCIUM 8.9 mg/dl (8.5-10.1); CREATININE 1.8 mg/dl (0.60-1.20); POTASSIUM 3.5 mmol/L (3.5-5.1)
[2018-05-18 07:39] VITALS: BP 140/64; PULSE 67; TEMP 36.6; O2SAT 96
[2018-05-18] MEDS: BOOST GLUCOSE CONTROL VANILLA PO SCH ×2 (08:55→17:41)
[2018-05-18] MEDS: METOPROLOL TARTRATE 25 MG TAB PO SCH ×2 (08:57→21:00)
[2018-05-18] MEDS: CEROVITE ADV FORMULA TAB PO SCH (08:57)
[2018-05-18] MEDS: MAGNESIUM CHLORIDE 64MG DELAYED REL TAB PO SCH ×2 (08:57→20:57)
[2018-05-18] MEDS: CHOLECALCIFEROL 1000 INTER.UNIT TAB PO SCH (08:57)
[2018-05-18] MEDS: PANTOprazole SOD 40 MG TAB PO SCH (08:57)
[2018-05-18] MEDS: FLUTICASONE/SALMETEROL 250/50 (ADVAIR) 14 PUFF/1 INHALER INH SCH ×2 (08:58→20:56)
[2018-05-18] MEDS: POTASSIUM CHLORIDE 10 MEQ TABCR PO SCH ×2 (08:58→20:58)
[2018-05-18] MEDS: SOTALOL HCL 80 MG TAB PO SCH ×2 (08:58→20:58)
[2018-05-18] MEDS: GABAPENTIN 100 MG CAP PO SCH ×3 (08:59→20:59)
[2018-05-18] MEDS: CEFUROXIME AXETIL 500 MG TAB PO SCH ×2 (08:59→20:59)
[2018-05-18] MEDS: INSULIN ASPART 100 UNITS/ML 3 ML PEN SC SCH ×4 (09:01→20:56)
--- NOTE | 2018-05-18 10:11 | Cardiology Follow-Up ---
Subjective General Date of Service: May 18, 2018. Chief Complaint: follow up edema, volume overload Pt evaluation today including: conversation w/ patient, physical exam History of Present Illness The patient is a 82 year old female seen in cardiology follow-up. Patient states that she is feeling better than admission. Physical therapy has been consulted. On telemetry she is back in sinus rhythm with occasional ventricular pacing. Creatinine which was 1.46 on admission had increased to 1.78 yesterday and 1.8 today. Allergies Coded Allergies: Amoxicillin (Verified Allergy, Intermediate, DERMATITIS, 06/04/16) Clavulanic Acid (Verified Allergy, Intermediate, DERMATITIS, 06/04/16) Poison Jacinda Extract/Poison [place] Extra (Verified Allergy, Intermediate, RASH , 06/09/16) Sulfa Antibiotics (Verified Allergy, Intermediate, RASH, 06/09/16) BEE STING (Verified Allergy, Mild, RASH, 06/04/16) Latex (Verified Allergy, Unknown, UNKNOWN, 06/04/16) STATES WHEN SHE WENT FOR FLU SHOT THEY TOLD HER SHE WAS ALLERGIC TO LATEX YOEL Inhibitors (Verified Adverse Reaction, Mild, COUGH, 06/09/16) Social History Smoking Status: Never Smoker Hx Tobacco Use In Past Year?: No Hx Alcohol Use - Type And Amou: No Hx Substance Use - Type And Am: No Problem List Medical Problems: (1) Cellulitis of left lower extremity Status: Acute Physical Exam Vital Signs Last Vital Signs Documentation Date Time Temp Pulse Resp B/P (MAP) Pulse Ox O2 Delivery O2 Flow Rate FiO2 05/18/18 07:39 36.6 67 19 140/64 (89) 96 05/18/18 04:08 Room Air Physical Exam Constitutional: Level of Distress: chronically ill Neck: supple, trachea midline Lungs: Auscultation: no wheezing, no rales/crackles Cardiovascular: Heart Auscultation: RRR, no murmurs Abdomen: Inspection & Palpation: soft, non-distended, no tenderness, guarding & rebound Extremities: pertinent finding (2+ edema, trending toward improvement ) Neurologic: Gait & Station: pertinent finding (no focal deficits ) Assessment and Plan Assessment and Plan Impression: 82 year old female 1. Multifactorial volume overload, due to venous insufficiency, lymphedema, diastolic dysfunction 2. PAF, since pacemaker check in office on 05/13/18 as which time SR was present , she has reverted to a rate controlled AV with ventricular pacing. Plan: The patient still has some degree of edema and total body overload but perhaps has trended toward intravascular volume depletion. Furosemide infusion was discontinued on 05/17/18. We will proceed with a dose of albumin plus Lasix 40 mg this morning. She is down approximately 10 kg with 18+ L of urine output since admission. Despite having discontinued her furosemide infusion yesterday 05/17 she still had 3.2 L of urine output yesterday with a negative fluid balance yesterday of 2.4 L. INR is at goal at 2.2 continue current doses of metoprolol and sotalol. Continue current dose of potassium chloride 20 mEq p.o. twice daily. Repeat conference of metabolic panel and INR tomorrow. Remain on telemetry. Laboratory Results Last 24 Hours Test 05/17/18 11:22 05/17/18 16:16 05/17/18 20:51 05/18/18 05:57 Bedside Glucose 124 mg/dl 101 mg/dl 120 mg/dl Prothrombin Time 23.2 SECONDS Prothromb Time International Ratio 2.2 Sodium Level 137 mmol/L Potassium Level 3.5 mmol/L Chloride Level 93 mmol/L Carbon Dioxide Level 37 mmol/L Anion Gap 6.0 mmol/L Blood Urea Nitrogen 44 mg/dl Creatinine 1.80 mg/dl Est Creatinine Clear Calc Drug Dose 36.0 ml/min Estimated GFR () 29.9 Estimated GFR (Non- 25.8 BUN/Creatinine Ratio 24.2 Random Glucose 101 mg/dl Calcium Level 8.9 mg/dl Magnesium Level 2.1 mg/dl Test 05/18/18 07:16 Bedside Glucose 120 mg/dl
[2018-05-18] MEDS ORDERED: ALBUMIN 25% 50 ML with FUROSEMIDE INJ 40 MG IV ONE ×2 (10:15)
--- NOTE | 2018-05-18 11:09 | Progress Note ---
Internal Med Progress Note Date of Service: May 18, 2018. Provider Documentation: SUBJECTIVE: Very pleasant, feels fine, no complaint of shortness of breath, no orthopnea, no dyspnea on exertion Feels her lower extremity swelling/edema has improved No cough No fever or chills OBJECTIVE: Vital Signs-as noted below Exam: General-very pleasant elderly female no sign of any apparent distress Eyes-sclera nonicteric, pupils bilateral equal reactive to light extraocular muscle intact ENT-moist oral mucosa Neck-neck supple, no thyromegaly, trachea midline Lungs-diminished, no audible wheeze or rales Heart-regular S1-S2 Abdomen- soft, nontender, active bowel sound Extremities-bilaterally lower extremity significant lymphadenopathy chronic venous stasis changes, no open wound noted Neuro-no focal neurological deficit Psych-alert awake oriented 3, normal mood and affect Lymph nodes-no lymphadenopathy Lab data as noted below. ASSESSMENT & PLAN: ACUTE ON CHRONIC CHF WITH DIASTOLIC DYSFUNCTION: Presented with volume overload, worsening of bilateral lower extremity edema Significant diuresis with IV Lasix drip-discontinued yesterday Appreciate input from cardiology Patient's order iv Lasix 40 mgx 1 with albumin to prevent intravascular volume depletion-causing AK I Echo: Normal LV systolic function, With 2 diastolic dysfunction Right ventricle was poorly visualized with normal systolic function, No tricuspid regurgitation HISTORY OF PAROXYSMAL A. FIB Sinus rhythm noted on telemetry Continue with sotalol, metoprolol Chronic anticoagulation with Coumadin, INR therapeutic AK I ON CKD stage III: Creatinine elevated to 1.8 Due to IV diuresis Ordered for Lasix with albumin today-to prevent intravascular volume depletion Follow daily PRP Avoid NSAIDs, contrast studies TYPE 2 DIABETES Well-controlled Recent hemoglobin A1c 5.8 continue insulin sliding scale HYPOKALEMIA Corrected Due to diuresis Continue potassium chloride 20 mEq p.o. twice daily. Follow PRP HYPOTHYROIDISM Continue levothyroxine TSH 2.060 within normal limit- CHRONIC BILATERAL LOWER EXTREMITY LYMPHEDEMA -Leading to severe ambulatory dysfunction Improved after IV diuresis Gabapentin dose reduced to 100 mg p.o. 3 times daily (was on 300 mg p.o. 3 times daily) to prevent fluid retention Continue PT OT MORBID OBESITY Weight 158.8 kg/BMI 55 AHA diet UTI (present on admission) Urine culture: Providencia alcalifaciens On oral Cefuroxime 500 mg p.o. twice daily #5(first day of therapy 7/21, last day of therapy 05/20-to complete total 7 days of treatment) CODE STATUS: DNR/DNI DVT PROPHYLAXIS On Coumadin INR therapeutic DISPOSITION Resident at [facility] Plan to return back to [facility] when medically stable Social service following for discharge planning Vital Signs: Date Time Temp Pulse Resp B/P (MAP) Pulse Ox O2 Delivery O2 Flow Rate FiO2 05/18/18 08:00 Room Air 05/18/18 07:39 36.6 67 19 140/64 (89) 96 05/18/18 04:08 36.8 76 18 142/78 (99) 93 Room Air 05/18/18 00:03 36.8 67 16 137/76 (96) 91 Room Air 05/17/18 20:00 Room Air 05/17/18 19:25 37.4 69 16 141/75 (97) 93 Room Air 05/17/18 15:28 36.7 68 18 147/95 (112) 93 Room Air 05/17/18 11:22 36.4 64 20 160/101 (120) 93 Lab Results: Results Past 24 Hours Test 05/17/18 11:22 05/17/18 16:16 05/17/18 20:51 05/18/18 05:57 Range/Units Bedside Glucose 124 101 120 70-90 mg/dl Prothrombin Time 23.2 9.0-12.0 SECONDS Prothromb Time International Ratio 2.2 0.9-1.1 Sodium Level 137 136-145 mmol/L Potassium Level 3.5 3.5-5.1 mmol/L Chloride Level 93 98-107 mmol/L Carbon Dioxide Level 37 21-32 mmol/L Anion Gap 6.0 3-11 mmol/L Blood Urea Nitrogen 44 7-18 mg/dl Creatinine 1.80 0.60-1.20 mg/dl Est Creatinine Clear Calc Drug Dose 36.0 ml/min Estimated GFR () 29.9 Estimated GFR (Non- 25.8 BUN/Creatinine Ratio 24.2 10-20 Random Glucose 101 70-99 mg/dl Calcium Level 8.9 8.5-10.1 mg/dl Magnesium Level 2.1 1.8-2.4 mg/dl Test 05/18/18 07:16 Range/Units Bedside Glucose 120 70-90 mg/dl
[2018-05-18] MEDS ORDERED: NRN100 PO (11:20)
[2018-05-18 11:40] VITALS: BP 167/82; PULSE 64; TEMP 36.8; O2SAT 95
[2018-05-18 15:06] VITALS: BP 152/103; PULSE 67; TEMP 37.4; O2SAT 95
[2018-05-18] MEDS: WARFARIN SOD 3 MG TAB PO SCH (15:42)
[2018-05-18 19:15] VITALS: BP 150/58; PULSE 67; TEMP 37.3; O2SAT 96
[2018-05-18] MEDS: SIMVASTATIN 20 MG TAB PO SCH (20:59)
[2018-05-18] MEDS: POLYETHYLENE (MIRALAX) 17 GM PACK PO PRN (21:08)
[2018-05-19] VITALS (8 sets, daily range): BP systolic 126–153; BP diastolic 60–78; PULSE 62–66; TEMP 36.6–37.3; O2SAT 89–97
[2018-05-19 06:25] LABS: INR 2.2 (0.9-1.1)
[2018-05-19] MEDS: LEVOTHYROXINE 100 MCG TAB PO SCH (06:40)
[2018-05-19 06:52] LABS: ALBUMIN 2.7 gm/dl (3.4-5.0); CALCIUM 8.9 mg/dl (8.5-10.1); CREATININE 1.74 mg/dl (0.60-1.20); POTASSIUM 3.6 mmol/L (3.5-5.1); TOTAL PROTEIN 7.2 gm/dl (6.4-8.2)
[2018-05-19] MEDS ORDERED: BOOST GLUCOSE CONTROL VANILLA PO SCH (07:00)
[2018-05-19] MEDS: CEROVITE ADV FORMULA TAB PO SCH (08:31)
[2018-05-19] MEDS: PANTOprazole SOD 40 MG TAB PO SCH (08:31)
[2018-05-19] MEDS: MAGNESIUM CHLORIDE 64MG DELAYED REL TAB PO SCH ×2 (08:31→21:35)
[2018-05-19] MEDS: CEFUROXIME AXETIL 500 MG TAB PO SCH ×2 (08:31→21:35)
[2018-05-19] MEDS: SOTALOL HCL 80 MG TAB PO SCH ×2 (08:31→21:35)
[2018-05-19] MEDS: METOPROLOL TARTRATE 25 MG TAB PO SCH ×2 (08:31→21:35)
[2018-05-19] MEDS: CHOLECALCIFEROL 1000 INTER.UNIT TAB PO SCH (08:31)
[2018-05-19] MEDS: FLUTICASONE/SALMETEROL 250/50 (ADVAIR) 14 PUFF/1 INHALER INH SCH ×2 (08:31→21:34)
[2018-05-19] MEDS: GABAPENTIN 100 MG CAP PO SCH (08:32)
[2018-05-19] MEDS: POTASSIUM CHLORIDE 10 MEQ TABCR PO SCH ×2 (08:32→21:35)
[2018-05-19] MEDS: INSULIN ASPART 100 UNITS/ML 3 ML PEN SC SCH ×4 (08:33→21:00)
[2018-05-19] MEDS: ALBUMIN 25% 50 ML with FUROSEMIDE INJ 40 MG IV SCH ×4 (09:21→17:03)
--- NOTE | 2018-05-19 09:21 | Cardiology Follow-Up ---
Subjective General Date of Service: May 19, 2018. Chief Complaint: follow up edema, volume overload Pt evaluation today including: conversation w/ patient, physical exam History of Present Illness The patient is a 82 year old female seen in follow up. Patient describes that she is "very sore ". This includes her shoulders and knees hips and ankles. She had a gentle session of physical therapy yesterday working on moving to the side of the bed and trying to increase her muscle strength and independence that went relatively well. Telemetry reveals [place] sinus rhythm for the most part with occasional atrial pacing and ventricular pacing and perhaps several short runs of atrial fibrillation without sustained atrial fibrillation having converted to sinus rhythm on 05/17/18. Her urine output was less vigorous yesterday off of the furosemide drip and having received furosemide 40 mg IV along with albumin yesterday morning. Her urine output was 1.5 L she was still negative by 1.3 L per the day. According to the recorded bed related weights, she weighed 156 kg on admission and 143.2 kg yesterday. Allergies Coded Allergies: Amoxicillin (Verified Allergy, Intermediate, DERMATITIS, 06/04/16) Clavulanic Acid (Verified Allergy, Intermediate, DERMATITIS, 06/04/16) Poison [place]inda Extract/Poison [place] Extra (Verified Allergy, Intermediate, RASH , 06/09/16) Sulfa Antibiotics (Verified Allergy, Intermediate, RASH, 06/09/16) BEE STING (Verified Allergy, Mild, RASH, 06/04/16) Latex (Verified Allergy, Unknown, UNKNOWN, 06/04/16) STATES WHEN SHE WENT FOR FLU SHOT THEY TOLD HER SHE WAS ALLERGIC TO LATEX YOEL Inhibitors (Verified Adverse Reaction, Mild, COUGH, 06/09/16) Social History Smoking Status: Never Smoker Hx Tobacco Use In Past Year?: No Hx Alcohol Use - Type And Amou: No Hx Substance Use - Type And Am: No Problem List Medical Problems: (1) Cellulitis of left lower extremity Status: Acute Physical Exam Vital Signs Last Vital Signs Documentation Date Time Temp Pulse Resp B/P (MAP) Pulse Ox O2 Delivery O2 Flow Rate FiO2 05/19/18 07:15 36.7 64 18 137/63 (87) 94 Room Air Physical Exam Constitutional: Level of Distress: chronically ill Neck: supple, trachea midline Lungs: Auscultation: no wheezing, no rales/crackles Cardiovascular: Heart Auscultation: RRR, no murmurs Abdomen: Inspection & Palpation: soft, non-distended, no tenderness, guarding & rebound Extremities: pertinent finding (1+ bilateral lower extremity edema, trending toward improvement) Neurologic: Gait & Station: pertinent finding (no focal deficits ) Assessment and Plan Assessment and Plan Summary of transthoracic echocardiogram performed this admission on 05/14/18: * -- Conclusions -- * No significant change compared to previous study of 01/15/14. * Normal LV chamber size with mild concentric LVH. * Normal LV systolic function, EF 60-65%. * No segmental left ventricular wall motion abnormalities are noted. * Grade II diastolic dysfunction. * Poorly visualized valvular structures with no significant stenosis or regurgitation by Doppler. Last Resulted 05/14/18 05:42 Last Resulted 05/19/18 05:46 Past 24 Hours Test 05/19/18 05:46 Range/Units Prothromb Time International Ratio 2.2 H 0.9-1.1 Prothrombin Time 22.4 H 9.0-12.0 SECONDS Impression: 82 year old female 1. Multifactorial volume overload, due to venous insufficiency, lymphedema, diastolic dysfunction 2. PAF, history of symptomatic bradycardia and therefore she has appropriately functioning dual-chamber Medtronic pacemaker 3. Chronic pain syndrome, arthritis, neuropathy Plan: Continue furosemide 40+ albumin, twice daily started today. She is on anticoagulation with Coumadin, INR is 2.2, which is sufficient for both stroke prophylaxis in the setting of paroxysmal atrial fibrillation as well as DVT prophylaxis as she is certainly high risk for DVT. Patient describes a soreness. She is on gabapentin 300 mg 3 times daily for what I think is neuropathic pain. This medication of course causes increased fluid retention as well. As I noted in my progress note 2 days ago. Lyrica is an alternative agent but is also implicated in fluid retention so I do not think this is a good alternative. Had previously reduced her gabapentin from 300 mg 3 times daily to 100 mg 3 times daily and this may be why she is complaining of soreness. At this time I am going to discontinue her gabapentin altogether and transition her to duloxetine (Cymbalta). this medication does not interfere with her sotalol from a QTC perspective. Increase activity as tolerated. Remain on telemetry. Laboratory Results Last 24 Hours Test 05/18/18 11:38 05/18/18 16:36 05/18/18 20:45 05/19/18 05:46 Bedside Glucose 103 mg/dl 108 mg/dl 123 mg/dl Prothrombin Time 22.4 SECONDS Prothromb Time International Ratio 2.2 Sodium Level 136 mmol/L Potassium Level 3.6 mmol/L Chloride Level 94 mmol/L Carbon Dioxide Level 34 mmol/L Anion Gap 8.0 mmol/L Blood Urea Nitrogen 44 mg/dl Creatinine 1.74 mg/dl Est Creatinine Clear Calc Drug Dose 36.5 ml/min Estimated GFR () 31.1 Estimated GFR (Non- 26.8 BUN/Creatinine Ratio 25.5 Random Glucose 95 mg/dl Calcium Level 8.9 mg/dl Total Bilirubin 0.8 mg/dl Aspartate Amino Transf (AST/SGOT) 14 U/L Alanine Aminotransferase (ALT/SGPT) 10 U/L Alkaline Phosphatase 86 U/L Total Protein 7.2 gm/dl Albumin 2.7 gm/dl Globulin 4.5 gm/dl Albumin/Globulin Ratio 0.6 Test 05/19/18 07:21 Bedside Glucose 110 mg/dl
[2018-05-19] MEDS ORDERED: DULOXETINE (CYMBALTA) 30 MG CAP PO ONE (09:22)
[2018-05-19] MEDS: BOOST VANILLA OR BOOST GLUCOSE CONTROL CHOCOLATE PO SCH (09:54)
--- NOTE | 2018-05-19 15:40 | Progress Note ---
Internal Med Progress Note Date of Service: May 19, 2018. Provider Documentation: SUBJECTIVE: Denies of any orthopnea, no fever chills Refuses to keep oxygen or Patient desaturates to 90-89% on room air Denies of any symptoms of shortness of breath or chest heaviness Patient is counseled to use 2 L oxygen by nasal cannula to prevent cardiac strain / hypoxia which can lead to decompensation of CHF Worsening of lower extremity edema-and delay in returning back to [facility] Patient was willing to put on oxygen SPO2 improves to 95% on 2 L via nasal cannula Patient willing to wear oxygen while in hospital Does not want to be discharged on chronic oxygen at [facility] OBJECTIVE: Vital Signs-as noted below Exam: General-very pleasant elderly female no sign of any apparent distress Eyes-sclera nonicteric, pupils bilateral equal reactive to light extraocular muscle intact ENT-moist oral mucosa Neck-neck supple, no thyromegaly, trachea midline Lungs-diminished, no audible wheeze or rales Heart-regular S1-S2 Abdomen- soft, nontender, active bowel sound Extremities-bilaterally lower extremity significant lymphadenopathy chronic venous stasis changes, no open wound noted Neuro-no focal neurological deficit Psych-alert awake oriented 3, normal mood and affect Lymph nodes-no lymphadenopathy Lab data as noted below. ASSESSMENT & PLAN: ACUTE ON CHRONIC CHF WITH DIASTOLIC DYSFUNCTION: Volume status continues to improve after aggressive diuresis Presented with volume overload, worsening of bilateral lower extremity edema Significant diuresis with IV Lasix drip-discontinued on 05/17/18 Appreciate input from cardiology Patient is ordered 40 mg IV Lasix with albumin, to prevent intravascular volume depletion Continue to monitor in telemetry Volume status monitoring with input and output and daily weight Echo: Normal LV systolic function, With 2 diastolic dysfunction Right ventricle was poorly visualized with normal systolic function, No tricuspid regurgitation HISTORY OF PAROXYSMAL A. FIB On sotalol, metoprolol Chronic anticoagulation with Coumadin, INR therapeutic Cardiology following NAOMI ON CKD stage III: Creatinine remains stable 1.8-1.7 Continue IV Lasix with albumin today-to prevent intravascular volume depletion Follow daily PRP Avoid NSAIDs, contrast studies TYPE 2 DIABETES Well-controlled Recent hemoglobin A1c 5.8 continue insulin sliding scale HYPOKALEMIA Corrected Due to diuresis Continue potassium chloride 20 mEq p.o. twice daily. Follow PRP HYPOTHYROIDISM Continue levothyroxine TSH 2.060 within normal limit CHRONIC BILATERAL LOWER EXTREMITY LYMPHEDEMA -Leading to severe ambulatory dysfunction Improved after IV diuresis Neurontin discontinued Started with Cymbalta for chronic lower extremity neuropathic pain-appreciate input from cardiology Continue PT OT MORBID OBESITY Weight 158.8 kg/BMI 55 AHA diet UTI (present on admission) Urine culture: Elizabethncia alcalifaciens On oral Cefuroxime 500 mg p.o. twice daily #6(first day of therapy 05/15, last day of therapy tomorrow 05/20-to complete total 7 days of treatment) CODE STATUS: DNR/DNI DVT PROPHYLAXIS On Coumadin INR therapeutic DISPOSITION Resident at [facility] Plan to return back to [facility] when medically stable Social service following for discharge planning Vital Signs: Date Time Temp Pulse Resp B/P (MAP) Pulse Ox O2 Delivery O2 Flow Rate FiO2 05/19/18 23:48 36.6 64 22 153/60 (91) 89 Room Air 05/19/18 20:00 94 Room Air 05/19/18 19:20 37.0 62 18 126/67 (86) 97 Nasal Cannula 2.0 05/19/18 15:47 Room Air 05/19/18 15:21 36.8 65 20 141/70 (93) 91 Room Air 05/19/18 11:56 37.3 66 18 145/78 (100) 91 Room Air 05/19/18 08:00 Room Air 05/19/18 07:15 36.7 64 18 137/63 (87) 94 Room Air 05/19/18 04:26 37.0 66 20 142/70 (94) 93 Room Air Lab Results: Results Past 24 Hours Test 05/19/18 05:46 05/19/18 07:21 05/19/18 11:26 05/19/18 16:17 Range/Units Prothrombin Time 22.4 9.0-12.0 SECONDS Prothromb Time International Ratio 2.2 0.9-1.1 Sodium Level 136 136-145 mmol/L Potassium Level 3.6 3.5-5.1 mmol/L Chloride Level 94 98-107 mmol/L Carbon Dioxide Level 34 21-32 mmol/L Anion Gap 8.0 3-11 mmol/L Blood Urea Nitrogen 44 7-18 mg/dl Creatinine 1.74 0.60-1.20 mg/dl Est Creatinine Clear Calc Drug Dose 36.5 ml/min Estimated GFR () 31.1 Estimated GFR (Non- 26.8 BUN/Creatinine Ratio 25.5 10-20 Random Glucose 95 70-99 mg/dl Calcium Level 8.9 8.5-10.1 mg/dl Total Bilirubin 0.8 0.2-1 mg/dl Aspartate Amino Transf (AST/SGOT) 14 15-37 U/L Alanine Aminotransferase (ALT/SGPT) 10 12-78 U/L Alkaline Phosphatase 86 45-117 U/L Total Protein 7.2 6.4-8.2 gm/dl Albumin 2.7 3.4-5.0 gm/dl Globulin 4.5 2.5-4.0 gm/dl Albumin/Globulin Ratio 0.6 0.9-2 Bedside Glucose 110 98 119 70-90 mg/dl Test 05/19/18 20:38 Range/Units Bedside Glucose 109 70-90 mg/dl
[2018-05-19] MEDS: NEPHROCAPS PO SCH (17:00)
[2018-05-19] MEDS: WARFARIN SOD 3 MG TAB PO SCH (17:01)
[2018-05-19] MEDS: SIMVASTATIN 20 MG TAB PO SCH (21:35)
[2018-05-20 04:13] VITALS: BP 139/78; PULSE 60; TEMP 36.4; O2SAT 91
[2018-05-20] MEDS: LEVOTHYROXINE 100 MCG TAB PO SCH (05:07)
[2018-05-20 07:07] LABS: INR 2.7 (0.9-1.1)
[2018-05-20 07:16] LABS: CALCIUM 9.2 mg/dl (8.5-10.1); CREATININE 1.48 mg/dl (0.60-1.20); POTASSIUM 3.6 mmol/L (3.5-5.1)
[2018-05-20] MEDS: INSULIN ASPART 100 UNITS/ML 3 ML PEN SC SCH ×4 (08:08→21:00)
[2018-05-20 08:12] VITALS: BP 123/74; PULSE 60; TEMP 37; O2SAT 92
[2018-05-20] MEDS: FLUTICASONE/SALMETEROL 250/50 (ADVAIR) 14 PUFF/1 INHALER INH SCH ×2 (08:25→21:00)
[2018-05-20] MEDS: BOOST VANILLA OR BOOST GLUCOSE CONTROL CHOCOLATE PO SCH ×2 (08:25→11:54)
[2018-05-20] MEDS: METOPROLOL TARTRATE 25 MG TAB PO SCH ×2 (08:25→21:39)
[2018-05-20] MEDS: CHOLECALCIFEROL 1000 INTER.UNIT TAB PO SCH (08:26)
[2018-05-20] MEDS: POTASSIUM CHLORIDE 10 MEQ TABCR PO SCH ×2 (08:26→21:39)
[2018-05-20] MEDS: PANTOprazole SOD 40 MG TAB PO SCH (08:26)
[2018-05-20] MEDS: SOTALOL HCL 80 MG TAB PO SCH ×2 (08:26→21:38)
[2018-05-20] MEDS: CEROVITE ADV FORMULA TAB PO SCH (08:26)
[2018-05-20] MEDS: DULOXETINE (CYMBALTA) 30 MG CAP PO SCH (08:27)
[2018-05-20] MEDS: ALBUMIN 25% 50 ML with FUROSEMIDE INJ 40 MG IV SCH ×4 (08:51→16:59)
--- NOTE | 2018-05-20 10:23 | Cardiology Follow-Up ---
Subjective General Date of Service: May 20, 2018. Chief Complaint: follow up edema, volume overload Pt evaluation today including: conversation w/ patient, physical exam History of Present Illness The patient is a 82 year old female seen in cardiology follow-up. The patient denies any chest discomfort, shortness of breath, and she does feel that she continues to lose fluid in her legs. Her soreness of her arms and legs is improved today compared to yesterday. She apparently has not done well with physical therapy and does not do well with transferring out of bed. Nursing expresses concern that the patient is less than motivated in terms of increasing her mobility, but I think there is a concern of chronic pain, and even some degree of depression complicating issues. Telemetry reveals sinus rhythm with ventricular paced QRS complexes at present. Review of her telemetry reveals several rhythm changes including negative sinus rhythm, sinus rhythm with ventricular pacing, as well as brief episodes of atrial fibrillation in the last 24 hours. Allergies Coded Allergies: Amoxicillin (Verified Allergy, Intermediate, DERMATITIS, 06/04/16) Clavulanic Acid (Verified Allergy, Intermediate, DERMATITIS, 06/04/16) Poison Jacinda Extract/Poison [place] Extra (Verified Allergy, Intermediate, RASH , 06/09/16) Sulfa Antibiotics (Verified Allergy, Intermediate, RASH, 06/09/16) BEE STING (Verified Allergy, Mild, RASH, 06/04/16) Latex (Verified Allergy, Unknown, UNKNOWN, 06/04/16) STATES WHEN SHE WENT FOR FLU SHOT THEY TOLD HER SHE WAS ALLERGIC TO LATEX YOEL Inhibitors (Verified Adverse Reaction, Mild, COUGH, 06/09/16) Social History Smoking Status: Never Smoker Hx Tobacco Use In Past Year?: No Hx Alcohol Use - Type And Amou: No Hx Substance Use - Type And Am: No Problem List Medical Problems: (1) Cellulitis of left lower extremity Status: Acute Physical Exam Vital Signs Last Vital Signs Documentation Date Time Temp Pulse Resp B/P (MAP) Pulse Ox O2 Delivery O2 Flow Rate FiO2 05/20/18 08:12 37.0 60 16 123/74 (90) 92 Room Air 05/19/18 19:20 2.0 Physical Exam Constitutional: Level of Distress: chronically ill Neck: supple, trachea midline Lungs: Auscultation: no wheezing, no rales/crackles Cardiovascular: Heart Auscultation: RRR, no murmurs Abdomen: Inspection & Palpation: soft, non-distended, no tenderness, guarding & rebound Extremities: pertinent finding (1+ bilateral lower extremity edema, trending toward improvement) Neurologic: Gait & Station: pertinent finding (no focal deficits ) Assessment and Plan Assessment and Plan Last Resulted 05/14/18 05:42 Last Resulted 05/20/18 05:42 Past 24 Hours Test 05/20/18 05:42 Range/Units Prothromb Time International Ratio 2.7 H 0.9-1.1 Prothrombin Time 28.0 H 9.0-12.0 SECONDS Impression: 82 year old female 1. Multifactorial volume overload, due to venous insufficiency, lymphedema, diastolic dysfunction 2. PAF, history of symptomatic bradycardia and therefore she has appropriately functioning dual-chamber Medtronic pacemaker 3. Chronic pain syndrome, arthritis, neuropathy Plan: Patient continues to exhibit diuresis. Her fluid balance was -1500 mL yesterday with 2.3 L of urine output noted yesterday. Overall, 25.5 L of urine output have been recorded since her admission. Her blood pressure remains stable without evidence of hypertension. Her chemistry panel is trended toward improvement with admission creatinine of 1.46 , peak thus far of 1.8, and she has trended down to 1.48 as of this morning 05/20. Potassium level is stable 3.6. Her INR is at goal at 2.7. At present, recommend we continue furosemide 40 mg IV plus albumin twice daily. Chemistry panel, electrolytes, and INR have been stable, and therefore I do not think we need to reassess her electrolytes and INR tomorrow we will plan to recheck labs on 05/22/18. Continue to encourage patient with physical therapy to increase mobility. Today will be her second dose of Cymbalta with gabapentin having been discontinued this admission. Laboratory Results Last 24 Hours Test 05/19/18 11:26 05/19/18 16:17 05/19/18 20:38 05/20/18 05:42 Bedside Glucose 98 mg/dl 119 mg/dl 109 mg/dl Prothrombin Time 28.0 SECONDS Prothromb Time International Ratio 2.7 Sodium Level 137 mmol/L Potassium Level 3.6 mmol/L Chloride Level 96 mmol/L Carbon Dioxide Level 33 mmol/L Anion Gap 8.0 mmol/L Blood Urea Nitrogen 45 mg/dl Creatinine 1.48 mg/dl Est Creatinine Clear Calc Drug Dose 42.7 ml/min Estimated GFR () 37.8 Estimated GFR (Non- 32.6 BUN/Creatinine Ratio 30.4 Random Glucose 91 mg/dl Calcium Level 9.2 mg/dl
[2018-05-20 12:07] VITALS: BP 142/64; PULSE 61; TEMP 36.6; O2SAT 92
[2018-05-20 15:11] VITALS: BP 136/82; PULSE 60; TEMP 36.7; O2SAT 93
[2018-05-20] MEDS: MAGNESIUM CHLORIDE 64MG DELAYED REL TAB PO SCH ×2 (16:58→21:39)
[2018-05-20] MEDS: WARFARIN SOD 3 MG TAB PO SCH (16:58)
--- NOTE | 2018-05-20 17:25 | Progress Note ---
Internal Med Progress Note Date of Service: May 20, 2018. Provider Documentation: SUBJECTIVE: Patient denies of any chest discomfort, no shortness of breath Improve pain/soreness of bilateral lower extremity No fever or chills OBJECTIVE: Vital Signs-as noted below Exam: General-very pleasant elderly female no sign of any apparent distress Eyes-sclera nonicteric, pupils bilateral equal reactive to light extraocular muscle intact ENT-moist oral mucosa Neck-neck supple, no thyromegaly, trachea midline Lungs-diminished, no audible wheeze or rales Heart-regular S1-S2 Abdomen- soft, nontender, active bowel sound Extremities-bilaterally lower extremity significant lymphadenopathy chronic venous stasis changes, no open wound noted Neuro-no focal neurological deficit Psych-alert awake oriented 3, normal mood and affect Lymph nodes-no lymphadenopathy Lab data as noted below. ASSESSMENT & PLAN: ACUTE ON CHRONIC CHF WITH DIASTOLIC DYSFUNCTION: Volume status continues to improve aggressive diuresis Presented with volume overload, worsening of bilateral lower extremity edema Echo: Normal LV systolic function, With 2 diastolic dysfunction Right ventricle was poorly visualized with normal systolic function, No tricuspid regurgitation Significant diuresis with IV Lasix drip-discontinued on 05/17/18 Appreciate input from cardiology per cardiology continue diuresis with Lasix 40 mg IV plus albumin twice daily with to prevent intravascular volume depletion Continue to monitor in telemetry Volume status monitoring with input and output and daily weight HISTORY OF PAROXYSMAL A. FIB On sotalol, metoprolol Chronic anticoagulation with Coumadin, INR therapeutic Cardiology following NAOMI ON CKD stage III: Creatinine improved to 1.4 She is receiving IV Lasix 40 mg with albumin twice daily Follow daily PRP Avoid NSAIDs, contrast studies TYPE 2 DIABETES Well-controlled Recent hemoglobin A1c 5.8 continue insulin sliding scale HYPOKALEMIA Corrected Due to diuresis Continue potassium chloride 20 mEq p.o. twice daily. Follow PRP HYPOTHYROIDISM Continue levothyroxine TSH 2.060 within normal limit CHRONIC BILATERAL LOWER EXTREMITY LYMPHEDEMA -Leading to severe ambulatory dysfunction Improved after IV diuresis Neurontin discontinued Started with Cymbalta for chronic lower extremity neuropathic pain-appreciate input from cardiology Continue PT OT MORBID OBESITY Weight 158.8 kg/BMI 55 AHA diet UTI (present on admission) Urine culture: Providencia alcalifaciens On oral Cefuroxime 500 mg p.o. twice daily #7 (first day of therapy 05/15, last day of therapy 05/20-to completed- total 7 days of treatment) Antibiotic discontinue CODE STATUS: DNR/DNI DVT PROPHYLAXIS On Coumadin INR therapeutic DISPOSITION Resident at [facility] Plan to return back to [facility] when medically stable Social service following for discharge planning Vital Signs: Date Time Temp Pulse Resp B/P (MAP) Pulse Ox O2 Delivery O2 Flow Rate FiO2 05/21/18 00:19 37.0 57 18 136/61 (86) 91 Room Air 05/20/18 20:00 94 Room Air 05/20/18 19:32 36.9 63 18 144/65 (91) 93 Room Air 05/20/18 15:11 36.7 60 19 136/82 (100) 93 Room Air 05/20/18 12:07 36.6 61 16 142/64 (90) 92 Room Air 05/20/18 08:12 37.0 60 16 123/74 (90) 92 Room Air 05/20/18 08:00 Room Air 05/20/18 04:13 36.4 60 22 139/78 (98) 91 Room Air Lab Results: Results Past 24 Hours Test 05/20/18 05:42 05/20/18 07:12 05/20/18 11:25 05/20/18 16:20 Range/Units Prothrombin Time 28.0 9.0-12.0 SECONDS Prothromb Time International Ratio 2.7 0.9-1.1 Sodium Level 137 136-145 mmol/L Potassium Level 3.6 3.5-5.1 mmol/L Chloride Level 96 98-107 mmol/L Carbon Dioxide Level 33 21-32 mmol/L Anion Gap 8.0 3-11 mmol/L Blood Urea Nitrogen 45 7-18 mg/dl Creatinine 1.48 0.60-1.20 mg/dl Est Creatinine Clear Calc Drug Dose 42.7 ml/min Estimated GFR () 37.8 Estimated GFR (Non- 32.6 BUN/Creatinine Ratio 30.4 10-20 Random Glucose 91 70-99 mg/dl Calcium Level 9.2 8.5-10.1 mg/dl Bedside Glucose 109 116 104 70-90 mg/dl Test 05/20/18 20:43 Range/Units Bedside Glucose 109 70-90 mg/dl
[2018-05-20 19:32] VITALS: BP 144/65; PULSE 63; TEMP 36.9; O2SAT 93
[2018-05-20 20:00] VITALS: O2SAT 94
[2018-05-20] MEDS: SIMVASTATIN 20 MG TAB PO SCH (21:39)
[2018-05-21] VITALS (8 sets, daily range): BP systolic 136–168; BP diastolic 61–83; PULSE 57–84; TEMP 36.4–37; O2SAT 91–95
[2018-05-21] MEDS: LEVOTHYROXINE 100 MCG TAB PO SCH (06:00)
[2018-05-21] MEDS: BOOST VANILLA OR BOOST GLUCOSE CONTROL CHOCOLATE PO SCH (07:00)
[2018-05-21] MEDS: ALBUMIN 25% 50 ML with FUROSEMIDE INJ 40 MG IV SCH ×4 (08:33→16:49)
[2018-05-21] MEDS: PANTOprazole SOD 40 MG TAB PO SCH (08:34)
[2018-05-21] MEDS: DULOXETINE (CYMBALTA) 30 MG CAP PO SCH (08:34)
[2018-05-21] MEDS: CHOLECALCIFEROL 1000 INTER.UNIT TAB PO SCH (08:34)
[2018-05-21] MEDS: CEROVITE ADV FORMULA TAB PO SCH (08:34)
[2018-05-21] MEDS: MAGNESIUM CHLORIDE 64MG DELAYED REL TAB PO SCH ×2 (08:34→21:02)
[2018-05-21] MEDS: METOPROLOL TARTRATE 25 MG TAB PO SCH ×2 (08:34→21:03)
[2018-05-21] MEDS: SOTALOL HCL 80 MG TAB PO SCH ×2 (08:35→21:03)
[2018-05-21] MEDS: POTASSIUM CHLORIDE 10 MEQ TABCR PO SCH ×2 (08:35→21:02)
[2018-05-21] MEDS: FLUTICASONE/SALMETEROL 250/50 (ADVAIR) 14 PUFF/1 INHALER INH SCH ×2 (08:35→21:02)
[2018-05-21] MEDS: INSULIN ASPART 100 UNITS/ML 3 ML PEN SC SCH ×4 (08:36→21:00)
[2018-05-21] MEDS: BOOST GLUCOSE CONTROL VANILLA PO SCH ×2 (11:45→16:45)
--- NOTE | 2018-05-21 12:44 | Cardiology Follow-Up ---
Subjective General Date of Service: May 21, 2018. Chief Complaint: follow up edema, volume overload Pt evaluation today including: conversation w/ patient, physical exam History of Present Illness The patient is a 82 year old female seen in follow up. Edema improved. Still problems with back and joint pain limiting mobility ( chronic). Allergies Coded Allergies: Amoxicillin (Verified Allergy, Intermediate, DERMATITIS, 06/04/16) Clavulanic Acid (Verified Allergy, Intermediate, DERMATITIS, 06/04/16) Poison Jacinda Extract/Poison [place] Extra (Verified Allergy, Intermediate, RASH , 06/09/16) Sulfa Antibiotics (Verified Allergy, Intermediate, RASH, 06/09/16) BEE STING (Verified Allergy, Mild, RASH, 06/04/16) Latex (Verified Allergy, Unknown, UNKNOWN, 06/04/16) STATES WHEN SHE WENT FOR FLU SHOT THEY TOLD HER SHE WAS ALLERGIC TO LATEX YOEL Inhibitors (Verified Adverse Reaction, Mild, COUGH, 06/09/16) Social History Smoking Status: Never Smoker Hx Tobacco Use In Past Year?: No Hx Alcohol Use - Type And Amou: No Hx Substance Use - Type And Am: No Problem List Medical Problems: (1) Cellulitis of left lower extremity Status: Acute Physical Exam Vital Signs Last Vital Signs Documentation Date Time Temp Pulse Resp B/P (MAP) Pulse Ox O2 Delivery O2 Flow Rate FiO2 05/21/18 11:32 36.7 60 20 155/69 (97) 94 Room Air 05/19/18 19:20 2.0 Physical Exam Constitutional: Level of Distress: chronically ill Neck: supple, trachea midline Lungs: Auscultation: no wheezing, no rales/crackles Cardiovascular: Heart Auscultation: RRR, no murmurs Abdomen: Inspection & Palpation: soft, non-distended, no tenderness, guarding & rebound Extremities: pertinent finding (1+ bilateral lower extremity edema, trending toward improvement) Neurologic: Gait & Station: pertinent finding (no focal deficits ) Assessment and Plan Assessment and Plan Impression: 82 year old female 1. Multifactorial volume overload, due to venous insufficiency, lymphedema, diastolic dysfunction 2. PAF, history of symptomatic bradycardia and therefore she has appropriately functioning dual-chamber Medtronic pacemaker 3. Chronic pain syndrome, arthritis, neuropathy Plan: DC IV furosemide and albumin after 1700 dose today. Change to torsemide. Will consider DC of love when I see her on 05/22. Continue therapy, goal is to try to have pt attempt to stand today. Laboratory Results Last 24 Hours Test 05/20/18 16:20 05/20/18 20:43 05/21/18 07:35 05/21/18 11:32 Bedside Glucose 104 mg/dl 109 mg/dl 104 mg/dl 121 mg/dl
[2018-05-21] MEDS ORDERED: NURSING VERBAL MED ORDER ONE (13:45)
[2018-05-21] MEDS ORDERED: TORSEMIDE 20 MG TAB PO SCH (14:00)
[2018-05-21] MEDS: WARFARIN SOD 3 MG TAB PO SCH (15:54)
[2018-05-21] MEDS: NEPHROCAPS PO SCH (15:55)
--- NOTE | 2018-05-21 17:50 | Progress Note ---
Internal Med Progress Note Date of Service: May 21, 2018. Provider Documentation: SUBJECTIVE: Patient denies of any shortness of breath, Not interested to be out of bed Lower extremity edema improved No orthopnea, no chest heaviness, no cough OBJECTIVE: Vital Signs-as noted below Exam: General-very pleasant elderly female no sign of any apparent distress Eyes-sclera nonicteric, pupils bilateral equal reactive to light extraocular muscle intact ENT-moist oral mucosa Neck-neck supple, no thyromegaly, trachea midline Lungs-diminished, no audible wheeze or rales Heart-regular S1-S2 Abdomen- soft, nontender, active bowel sound Extremities-bilaterally lower extremity significant lymphadenopathy chronic venous stasis changes, no open wound noted Neuro-no focal neurological deficit Psych-alert awake oriented 3, normal mood and affect Lymph nodes-no lymphadenopathy Lab data as noted below. ASSESSMENT & PLAN: ACUTE ON CHRONIC CHF WITH DIASTOLIC DYSFUNCTION: Volume status improved aggressive diuresis Presented with volume overload, worsening of bilateral lower extremity edema Echo: Normal LV systolic function, With 2 diastolic dysfunction Right ventricle was poorly visualized with normal systolic function, No tricuspid regurgitation Significant diuresis with IV Lasix drip-discontinued on 05/17/18 Appreciate input from cardiology per cardiology getting diuresis with Lasix 40 mg IV plus albumin twice daily with to prevent intravascular volume depletion Plan is to denude DC IV Lasix and albumin after evening dose today Diuretics will be changed to torsemide Continue volume status monitoring with input and output and daily weight HISTORY OF PAROXYSMAL A. FIB On sotalol, metoprolol Chronic anticoagulation with Coumadin, INR therapeutic Cardiology following NAOMI ON CKD stage III: Creatinine improved to 1.4 Follow daily PRP Avoid NSAIDs, contrast studies TYPE 2 DIABETES Well-controlled Recent hemoglobin A1c 5.8 continue insulin sliding scale HYPOKALEMIA Corrected Due to diuresis Continue potassium chloride 20 mEq p.o. twice daily. Follow PRP HYPOTHYROIDISM Continue levothyroxine TSH 2.060 within normal limit CHRONIC BILATERAL LOWER EXTREMITY LYMPHEDEMA -Leading to severe ambulatory dysfunction Improved after IV diuresis Neurontin discontinued Started with Cymbalta for chronic lower extremity neuropathic pain-appreciate input from cardiology Continue PT OT MORBID OBESITY Weight 158.8 kg/BMI 55 AHA diet UTI (present on admission) Urine culture: Providencia alcalifaciens On oral Cefuroxime 500 mg p.o. twice daily #7 (first day of therapy 05/15, last day of therapy 05/20-to completed- total 7 days of treatment) Antibiotic discontinued CODE STATUS: DNR/DNI DVT PROPHYLAXIS On Coumadin INR therapeutic DISPOSITION Resident at [facility] Plan to return back to [facility] when medically stable Social service following for discharge planning Vital Signs: Date Time Temp Pulse Resp B/P (MAP) Pulse Ox O2 Delivery O2 Flow Rate FiO2 05/21/18 19:21 36.8 64 20 168/83 (111) 95 Room Air 05/21/18 15:28 36.7 60 18 150/67 (94) 93 Room Air 05/21/18 11:32 36.7 60 20 155/69 (97) 94 Room Air 05/21/18 08:00 36.4 84 22 149/75 (99) 93 Room Air 05/21/18 08:00 Room Air 05/21/18 04:46 36.8 59 16 136/80 (98) 93 Room Air 05/21/18 00:19 37.0 57 18 136/61 (86) 91 Room Air 05/20/18 20:00 94 Room Air Lab Results: Results Past 24 Hours Test 05/20/18 20:43 05/21/18 07:35 05/21/18 11:32 05/21/18 16:12 Range/Units Bedside Glucose 109 104 121 120 70-90 mg/dl
--- NOTE | 2018-05-21 20:02 | Discharge Instructions ---
Discharge Instructions Date of Service May 21, 2018. Admission Reason for Admission: Volume Overload Discharge Discharge Diagnosis / Problem: ACUTE CHF WITH DIASTOLIC DYSFUNCTION Discharge Goals Goal(s): Decrease discomfort, Improve function, Increase independence, Improve disease control, Therapeutic intervention Activity Recommendations Activity Level: Assistance Required Therapies: Physical Therapy, Occupational Therapy . Additional Information Patient informed of condition: Yes Advance Directives: Yes DNR: Yes Level of Care: Other (Resident at [facility]) Communicable Disease: No Prognosis: Stable Knox Catheter: No Instructions / Follow-Up Instructions / Follow-Up HOSPITAL FOLLOW-UP WITH PHYSICIAN AT [facility] NO COUMADIN TODAY 05/24/18 AND TOMORROW 05/25/18 PT/INR CHECK TOMORROW 05/25/18 AND RESUME COUMADIN AT LOWER DOSE 1.25 MG DAILY IF INR < 3 GOAL INR 2-3 Current Hospital Diet Patient's current hospital diet: AHA Diet (Heart Healthy), Diabetes Type 2 Diet Discharge Diet Recommended Diet: AHA Diet (Heart Healthy), Diabetes Type 2 Diet Fluid Restriction: 1500 ml (6 cups) Pending Studies Studies pending at discharge: no Laboratory Results Hemoglobin A1c Test 05/14/18 05:42 Range/Units Estimated Average Glucose 120 mg/dl Hemoglobin A1c 5.8 H 4.5-5.6 % Lipid Panel Test 04/13/18 05:30 Range/Units Triglycerides Level 135 0-150 mg/dl Cholesterol Level 79 0-200 mg/dl HDL Cholesterol 38 mg/dl Cholesterol/HDL Ratio 2.1 LDL Cholesterol, Calculated 14 mg/dl Medical Emergencies . Who to Call and When: Medical Emergencies: If at any time you feel your situation is an emergency, please call 911 immediately. . Non-Emergent Contact Non-Emergency issues call your: Primary Care Provider . . "Provider Documentation" section prepared by Luann Walker. . Core Measure Problem Core Measures: None
[2018-05-21] MEDS: SIMVASTATIN 20 MG TAB PO SCH (21:03)
[2018-05-22 05:12] VITALS: BP 159/63; PULSE 62; TEMP 37; O2SAT 93
[2018-05-22] MEDS: LEVOTHYROXINE 100 MCG TAB PO SCH (06:04)
[2018-05-22] MEDS ORDERED: TORSEMIDE 20 MG TAB PO SCH (07:00)
[2018-05-22 07:07] VITALS: BP 139/78; PULSE 61; TEMP 36.9; O2SAT 95
[2018-05-22 07:15] LABS: INR 6.5 (0.9-1.1)
[2018-05-22 07:22] LABS: CALCIUM 9.5 mg/dl (8.5-10.1); CREATININE 1.4 mg/dl (0.60-1.20); POTASSIUM 3.5 mmol/L (3.5-5.1)
[2018-05-22] MEDS ORDERED: NURSING VERBAL MED ORDER ONE (07:30)
[2018-05-22] MEDS: INSULIN ASPART 100 UNITS/ML 3 ML PEN SC SCH ×4 (08:30→21:00)
[2018-05-22] MEDS: BOOST GLUCOSE CONTROL VANILLA PO SCH ×2 (09:34→16:42)
[2018-05-22] MEDS: FLUTICASONE/SALMETEROL 250/50 (ADVAIR) 14 PUFF/1 INHALER INH SCH ×2 (09:35→20:57)
[2018-05-22] MEDS: DULOXETINE HCL 60 MG CAP PO SCH (09:35)
[2018-05-22] MEDS: MAGNESIUM CHLORIDE 64MG DELAYED REL TAB PO SCH ×2 (09:35→21:00)
[2018-05-22] MEDS: CHOLECALCIFEROL 1000 INTER.UNIT TAB PO SCH (09:36)
[2018-05-22] MEDS: POTASSIUM CHLORIDE 10 MEQ TABCR PO SCH ×2 (09:36→21:00)
[2018-05-22] MEDS: CEROVITE ADV FORMULA TAB PO SCH (09:37)
[2018-05-22] MEDS: PANTOprazole SOD 40 MG TAB PO SCH (09:37)
[2018-05-22] MEDS: SOTALOL HCL 80 MG TAB PO SCH ×2 (09:37→20:59)
[2018-05-22] MEDS: METOPROLOL TARTRATE 25 MG TAB PO SCH ×2 (09:37→20:58)
--- NOTE | 2018-05-22 11:48 | Cardiology Follow-Up ---
Subjective General Date of Service: May 22, 2018. Chief Complaint: follow up edema, volume overload Pt evaluation today including: conversation w/ patient, physical exam History of Present Illness The patient is a 82 year old female seen in follow-up. Per nursing and patient, pain perhaps a little bit improved. IV furosemide plus albumin was discontinued yesterday and she received oral torsemide 20 mg this morning. I am not certain if her bed scale weights are accurate, but the document and initial admission weight of 156.6 kg trending to 138 kg today. INR is elevated today at 6.5 which is significantly changed compared to having been 1.9, 2.2, and 2.7 on serial measurements earlier this hospital stay. Renal function is stable with creatinine of 1.4, and had been 1.46 on initial presentation. Allergies Coded Allergies: Amoxicillin (Verified Allergy, Intermediate, DERMATITIS, 06/04/16) Clavulanic Acid (Verified Allergy, Intermediate, DERMATITIS, 06/04/16) Poison Jacinda Extract/Poison [place] Extra (Verified Allergy, Intermediate, RASH , 06/09/16) Sulfa Antibiotics (Verified Allergy, Intermediate, RASH, 06/09/16) BEE STING (Verified Allergy, Mild, RASH, 06/04/16) Latex (Verified Allergy, Unknown, UNKNOWN, 06/04/16) STATES WHEN SHE WENT FOR FLU SHOT THEY TOLD HER SHE WAS ALLERGIC TO LATEX YOEL Inhibitors (Verified Adverse Reaction, Mild, COUGH, 06/09/16) Social History Smoking Status: Never Smoker Hx Tobacco Use In Past Year?: No Hx Alcohol Use - Type And Amou: No Hx Substance Use - Type And Am: No Problem List Medical Problems: (1) Cellulitis of left lower extremity Status: Acute Physical Exam Vital Signs Last Vital Signs Documentation Date Time Temp Pulse Resp B/P (MAP) Pulse Ox O2 Delivery O2 Flow Rate FiO2 05/22/18 08:00 Room Air 05/22/18 07:07 36.9 61 16 139/78 (98) 95 05/19/18 19:20 2.0 Physical Exam Constitutional: Level of Distress: chronically ill Neck: supple, trachea midline Lungs: Auscultation: no wheezing, no rales/crackles Cardiovascular: Heart Auscultation: RRR, no murmurs Abdomen: Inspection & Palpation: soft, non-distended, no tenderness, guarding & rebound Extremities: pertinent finding (Minimal lower extremity edema. Chronic venous stasis changes.) Neurologic: Gait & Station: pertinent finding (no focal deficits ) Assessment and Plan Assessment and Plan Impression: 82 year old female 1. Multifactorial volume overload, due to venous insufficiency, lymphedema, diastolic dysfunction 2. PAF, history of symptomatic bradycardia and therefore she has appropriately functioning dual-chamber Medtronic pacemaker 3. Chronic pain syndrome, arthritis, neuropathy 4. Coagulopathy, INR 6.5 5. Functional incontinence due to difficulty with positioning due to body habitus, deconditioning, chronic pain, this is limited dose of diuretic therapy orally as an outpatient in the past. Discussion/plan: Sinus rhythm is noted on telemetry today, 05/22/18. There is a potential interaction between warfarin and Cymbalta. This may account for her development of elevated INR. Her INR was not checked yesterday because it had been stable for days. At present, we are going to hold her Coumadin, and I am going to send off a repeat INR just to clarify that this was not a lab error because it is inconsistent with her other readings. I had already increased her Cymbalta dose to 60 mg today as it seems like this is helping her chronic pain syndrome. As noted Neurontin was discontinued earlier on this hospital stay due to concerns that it can contribute to fluid retention. We will continue to hold Coumadin until her INR is less than 3. Increase oral torsemide to 40 mg 2 times per day, first dose first thing in the morning, second dose at 1400. Continue current potassium replacement. At this point, I recommend a trial of removal of her Knox catheter. Her difficulty with functional incontinence has been an issue regarding maintaining her diuretic therapy in the past. Her nurse and I had a discussion that if there is lack of success with managing her bathroom needs without Knox catheter on the oral diuretic, perhaps a chronic indwelling Knox catheter could be a option. I think however we need to try to remove the catheter before we commit to this given the potential risks of infection. Continue physical therapy. Laboratory Results Last 24 Hours Test 05/21/18 16:12 05/21/18 20:35 05/22/18 06:20 05/22/18 07:20 Bedside Glucose 120 mg/dl 114 mg/dl 106 mg/dl Prothrombin Time 65.9 SECONDS Prothromb Time International Ratio 6.5 Sodium Level 137 mmol/L Potassium Level 3.5 mmol/L Chloride Level 96 mmol/L Carbon Dioxide Level 33 mmol/L Anion Gap 8.0 mmol/L Blood Urea Nitrogen 50 mg/dl Creatinine 1.40 mg/dl Est Creatinine Clear Calc Drug Dose 44.4 ml/min Estimated GFR () 40.5 Estimated GFR (Non- 34.9 BUN/Creatinine Ratio 35.8 Random Glucose 93 mg/dl Calcium Level 9.5 mg/dl
[2018-05-22 12:05] VITALS: BP 139/71; PULSE 62; TEMP 36.7; O2SAT 93
[2018-05-22 12:38] LABS: INR 7.4 (0.9-1.1)
[2018-05-22] MEDS ORDERED: PHYTONADIONE 5 MG TAB PO STA (13:07)
[2018-05-22] MEDS: TORSEMIDE 20 MG TAB PO SCH (14:36)
[2018-05-22 15:55] VITALS: BP 153/75; PULSE 62; TEMP 36.4; O2SAT 94
--- NOTE | 2018-05-22 16:48 | Progress Note ---
Internal Med Progress Note Date of Service: May 22, 2018. Provider Documentation: SUBJECTIVE: Had significant diuresis in the few days Lower extremity swelling improved Patient denies of any orthopnea/shortness of breath Very limited mobility has been refusing physical therapy, not motivated to be out of bed Patient is counseled-patient needs to give efforts to at least getting out of bed to chair, walk with a walker assistance- Patient reports at [facility], patient does not go to the [facility], food is delivered to her home But mentions she just does get out of the room once in a while Willing to try physical therapy tomorrow OBJECTIVE: Vital Signs-as noted below Exam: General-very pleasant elderly female no sign of any apparent distress Eyes-sclera nonicteric, pupils bilateral equal reactive to light extraocular muscle intact ENT-moist oral mucosa Neck-neck supple, no thyromegaly, trachea midline Lungs-diminished, no audible wheeze or rales Heart-regular S1-S2 Abdomen- soft, nontender, active bowel sound Extremities-bilaterally lower extremity significant lymphadenopathy /edema - improved from prior exam/chronic venous stasis changes, no open wound noted Neuro-no focal neurological deficit Psych-alert awake oriented 3, normal mood and affect Lymph nodes-no lymphadenopathy Lab data as noted below. ASSESSMENT & PLAN: ACUTE ON CHRONIC CHF WITH DIASTOLIC DYSFUNCTION: Volume status improved with aggressive diuresis Presented with volume overload, worsening of bilateral lower extremity edema Echo: Normal LV systolic function, With 2 diastolic dysfunction Right ventricle was poorly visualized with normal systolic function, No tricuspid regurgitation Significant diuresis with IV Lasix drip-was discontinued on 05/17/18 Appreciate input from cardiology Treated with with Lasix 40 mg IV plus albumin twice daily with to prevent intravascular volume depletion IV Lasix and albumin was discontinued after yesterday's evening dose 05/21/2018 Patient started with torsemide Continue to monitor volume status, intake and output HISTORY OF PAROXYSMAL A. FIB On sotalol, metoprolol Chronic anticoagulation with Coumadin, INR elevated to more than 6 Coumadin on hold No evidence of bleeding Will monitor daily PT/INR NAOMI ON CKD stage III: Creatinine improved to 1.4 Follow daily PRP Avoid NSAIDs, contrast studies TYPE 2 DIABETES Well-controlled Recent hemoglobin A1c 5.8 continue insulin sliding scale HYPOKALEMIA Corrected Due to diuresis Continue potassium chloride 20 mEq p.o. twice daily. Follow PRP HYPOTHYROIDISM Continue levothyroxine TSH 2.060 within normal limit CHRONIC BILATERAL LOWER EXTREMITY LYMPHEDEMA -Leading to severe ambulatory dysfunction Improved after IV diuresis Neurontin discontinued Started with Cymbalta for chronic lower extremity neuropathic pain-appreciate input from cardiology Ordered for PT OT Patient is very reluctant to be out of bed to sit on chair /or to participate in physical therapy Patient is counseled repeatedly by myself and cardiology Willing to try physical therapy tomorrow MORBID OBESITY Weight 158.8 kg/BMI 55 AHA diet Weight improved to 138 kg after aggressive diuresis while in hospital UTI (present on admission) Urine culture: Providencia alcalifaciens On oral Cefuroxime 500 mg p.o. twice daily #7 (first day of therapy 05/15, last day of therapy 05/20-to completed- total 7 days of treatment) Antibiotic discontinued CODE STATUS: DNR/DNI DVT PROPHYLAXIS INR elevated DISPOSITION Resident at [facility] Plan to return back to [facility] in next 1-2 days Social service following for discharge planning Vital Signs: Date Time Temp Pulse Resp B/P (MAP) Pulse Ox O2 Delivery O2 Flow Rate FiO2 05/24/18 03:42 36.7 60 18 136/69 (91) 94 Room Air 05/23/18 23:32 36.7 60 18 135/65 (88) 97 Room Air 05/23/18 20:00 Room Air 05/23/18 19:27 36.5 60 20 149/75 (99) 95 Room Air 05/23/18 15:55 36.5 60 18 145/72 (96) 93 Room Air 05/23/18 14:34 36.5 60 20 163/74 (103) 95 Room Air 05/23/18 12:46 36.6 62 20 134/73 (93) 99 Room Air 05/23/18 08:47 36.7 63 17 152/60 (90) 96 Room Air 05/23/18 08:00 Room Air Lab Results: Results Past 24 Hours Test 05/23/18 07:34 05/23/18 11:38 05/23/18 16:19 05/23/18 20:25 Range/Units Bedside Glucose 100 118 102 103 70-90 mg/dl Test 05/24/18 06:13 Range/Units Prothrombin Time 38.0 9.0-12.0 SECONDS Prothromb Time International Ratio 3.7 0.9-1.1
[2018-05-22 19:42] VITALS: BP 165/73; PULSE 62; TEMP 36.8; O2SAT 94
[2018-05-22 20:37] VITALS: O2SAT 94
[2018-05-22] MEDS: SIMVASTATIN 20 MG TAB PO SCH (20:59)
[2018-05-23] VITALS (8 sets, daily range): BP systolic 134–163; BP diastolic 60–75; PULSE 60–72; TEMP 36.5–36.7; O2SAT 93–99
[2018-05-23] MEDS: LEVOTHYROXINE 100 MCG TAB PO SCH (05:17)
[2018-05-23 06:53] LABS: INR 3.4 (0.9-1.1)
[2018-05-23 07:22] LABS: CALCIUM 9.6 mg/dl (8.5-10.1); CREATININE 1.53 mg/dl (0.60-1.20); POTASSIUM 3.6 mmol/L (3.5-5.1); TOTAL PROTEIN 7.9 gm/dl (6.4-8.2)
[2018-05-23] MEDS: BOOST GLUCOSE CONTROL VANILLA PO SCH ×2 (07:30→16:35)
[2018-05-23] MEDS: METOPROLOL TARTRATE 25 MG TAB PO SCH ×2 (09:24→21:38)
[2018-05-23] MEDS: FLUTICASONE/SALMETEROL 250/50 (ADVAIR) 14 PUFF/1 INHALER INH SCH ×2 (09:24→21:37)
[2018-05-23] MEDS: CEROVITE ADV FORMULA TAB PO SCH (09:25)
[2018-05-23] MEDS: PANTOprazole SOD 40 MG TAB PO SCH (09:25)
[2018-05-23] MEDS: MAGNESIUM CHLORIDE 64MG DELAYED REL TAB PO SCH ×2 (09:25→21:38)
[2018-05-23] MEDS: DULOXETINE HCL 60 MG CAP PO SCH (09:25)
[2018-05-23] MEDS: CHOLECALCIFEROL 1000 INTER.UNIT TAB PO SCH (09:25)
[2018-05-23] MEDS: INSULIN ASPART 100 UNITS/ML 3 ML PEN SC SCH ×4 (09:26→21:00)
[2018-05-23] MEDS: SOTALOL HCL 80 MG TAB PO SCH ×2 (09:26→21:39)
[2018-05-23] MEDS: TORSEMIDE 20 MG TAB PO SCH ×2 (09:26→13:07)
[2018-05-23] MEDS: POTASSIUM CHLORIDE 10 MEQ TABCR PO SCH ×2 (09:27→21:38)
--- NOTE | 2018-05-23 11:30 | Cardiology Follow-Up ---
Subjective General Date of Service: May 23, 2018. Chief Complaint: follow up edema, volume overload Pt evaluation today including: conversation w/ patient, physical exam History of Present Illness The patient is a 82 year old female seen in follow-up. The patient is in better spirits. Knox catheter was removed yesterday 05/23/18. She was found to have a coagulopathy with INR of 6.5, and 7.4 on repeat. This could very well be due to interaction between Coumadin and Cymbalta, in the setting of patient having little oral intake recently. She received 2.5 mg of oral vitamin K and her INR has improved to 3.4 today. Coumadin was held on . No bleeding complications are observed. Telemetry reveals stable findings. Allergies Coded Allergies: Amoxicillin (Verified Allergy, Intermediate, DERMATITIS, 06/04/16) Clavulanic Acid (Verified Allergy, Intermediate, DERMATITIS, 06/04/16) Poison Jacinda Extract/Poison [place] Extra (Verified Allergy, Intermediate, RASH , 06/09/16) Sulfa Antibiotics (Verified Allergy, Intermediate, RASH, 06/09/16) BEE STING (Verified Allergy, Mild, RASH, 06/04/16) Latex (Verified Allergy, Unknown, UNKNOWN, 06/04/16) STATES WHEN SHE WENT FOR FLU SHOT THEY TOLD HER SHE WAS ALLERGIC TO LATEX YOEL Inhibitors (Verified Adverse Reaction, Mild, COUGH, 06/09/16) Social History Smoking Status: Never Smoker Hx Tobacco Use In Past Year?: No Hx Alcohol Use - Type And Amou: No Hx Substance Use - Type And Am: No Problem List Medical Problems: (1) Cellulitis of left lower extremity Status: Acute Physical Exam Vital Signs Last Vital Signs Documentation Date Time Temp Pulse Resp B/P (MAP) Pulse Ox O2 Delivery O2 Flow Rate FiO2 05/23/18 08:47 36.7 63 17 152/60 (90) 96 Room Air 05/19/18 19:20 2.0 Physical Exam Constitutional: Level of Distress: chronically ill Neck: supple, trachea midline Lungs: Auscultation: no wheezing, no rales/crackles Cardiovascular: Heart Auscultation: RRR, no murmurs Abdomen: Inspection & Palpation: soft, non-distended, no tenderness, guarding & rebound Extremities: pertinent finding (Minimal lower extremity edema. Chronic venous stasis changes.) Neurologic: Gait & Station: pertinent finding (no focal deficits ) Assessment and Plan Assessment and Plan Impression: 82 year old female 1. Multifactorial volume overload, due to venous insufficiency, lymphedema, diastolic dysfunction 2. PAF, history of symptomatic bradycardia and therefore she has appropriately functioning dual-chamber Medtronic pacemaker 3. Chronic pain syndrome, arthritis, neuropathy 4. Coagulopathy, INR 6.5 5. Functional incontinence due to difficulty with positioning due to body habitus, deconditioning, chronic pain, this is limited dose of diuretic therapy orally as an outpatient in the past. Discussion/plan: Knox catheter discontinued 05/22/18. Nursing reports that the patient is incontinent of urine, so her intake and output summary is going to be inaccurate from here on. Will need to track patient with daily weights. Continue activity. Cymbalta dose increased to 60 mg yesterday. Resume Coumadin however at a lower dose 1.25 mg daily with dose adjusted due to Cymbalta treatment, noted vitamin K was administered on 05/22/18 as her INR may continue to trend down for a little bit. Continue current oral diuretic dose of torsemide 40 mg 2 times per day, first thing in the morning and 2 PM. Potassium chloride 20 mEq p.o. twice daily. Prior to hospital dose of sotalol metoprolol has been continued. She has had brief asymptomatic salvos of atrial fibrillation that have been rate controlled. Continue physical therapy. I anticipate transfer to the residential perhaps early next week on Thursday or Thursday. Laboratory Results Last 24 Hours Test 05/22/18 12:08 05/22/18 16:20 05/22/18 20:37 05/23/18 06:05 Prothrombin Time 74.4 SECONDS 34.5 SECONDS Prothromb Time International Ratio 7.4 3.4 Bedside Glucose 110 mg/dl 101 mg/dl Sodium Level 138 mmol/L Potassium Level 3.6 mmol/L Chloride Level 98 mmol/L Carbon Dioxide Level 31 mmol/L Anion Gap 10.0 mmol/L Blood Urea Nitrogen 53 mg/dl Creatinine 1.53 mg/dl Est Creatinine Clear Calc Drug Dose 40.5 ml/min Estimated GFR () 36.3 Estimated GFR (Non- 31.4 BUN/Creatinine Ratio 34.6 Random Glucose 93 mg/dl Calcium Level 9.6 mg/dl Total Bilirubin 0.6 mg/dl Direct Bilirubin 0.2 mg/dl Aspartate Amino Transf (AST/SGOT) 14 U/L Alanine Aminotransferase (ALT/SGPT) 11 U/L Alkaline Phosphatase 79 U/L Total Protein 7.9 gm/dl Albumin 3.0 gm/dl Globulin 4.9 gm/dl Albumin/Globulin Ratio 0.6 Test 05/23/18 07:34 Bedside Glucose 100 mg/dl
--- NOTE | 2018-05-23 15:45 | Progress Note ---
Internal Med Progress Note Date of Service: May 23, 2018. Provider Documentation: SUBJECTIVE: Denies of any discomfort Shortness of breath Lower extremity swelling markedly improved Orthopnea, no chest heaviness No fever or chills OBJECTIVE: Vital Signs-as noted below Exam: General-very pleasant elderly female no sign of any apparent distress Eyes-sclera nonicteric, pupils bilateral equal reactive to light extraocular muscle intact ENT-moist oral mucosa Neck-neck supple, no thyromegaly, trachea midline Lungs-diminished, no audible wheeze or rales Heart-regular S1-S2 Abdomen- soft, nontender, active bowel sound Extremities-bilaterally lower extremity significant lymphadenopathy /edema - improved from prior exam/chronic venous stasis changes, no open wound noted Neuro-no focal neurological deficit Psych-alert awake oriented 3, normal mood and affect Lymph nodes-no lymphadenopathy Lab data as noted below. ASSESSMENT & PLAN: ACUTE ON CHRONIC CHF WITH DIASTOLIC DYSFUNCTION: Volume status improved with aggressive diuresis Presented with volume overload, worsening of bilateral lower extremity edema Echo: Normal LV systolic function, With 2 diastolic dysfunction Right ventricle was poorly visualized with normal systolic function, No tricuspid regurgitation Significant diuresis with IV Lasix drip-was discontinued on 05/17/18 Appreciate input from cardiology Was treated with Lasix 40 mg IV plus albumin twice daily with to prevent intravascular volume depletion IV Lasix and albumin was discontinued after evening dose on 05/21/2018 Patient started with torsemide Continue to monitor volume status, intake and output HISTORY OF PAROXYSMAL A. FIB On sotalol, metoprolol Chronic anticoagulation with Coumadin, presented with INR elevated to more than 6 Continue to monitor PT/INR Resume Coumadin with lower dose as INR less than 3 ACUTE KIDNEY INJURY ON CKD stage III: Creatinine improved to approximate baseline Follow daily PRP Avoid NSAIDs, contrast studies TYPE 2 DIABETES Well-controlled Recent hemoglobin A1c 5.8 continue insulin sliding scale HYPOKALEMIA Corrected Due to diuresis Continue potassium chloride 20 mEq p.o. twice daily. Follow PRP HYPOTHYROIDISM Continue levothyroxine TSH 2.060 within normal limit CHRONIC BILATERAL LOWER EXTREMITY LYMPHEDEMA -Leading to severe ambulatory dysfunction Improved after diuresis Neurontin discontinued-to prevent fluid retention Started with Cymbalta for chronic lower extremity neuropathic pain-appreciate input from cardiology Ordered for PT OT Patient is very reluctant to be out of bed to sit on chair /or to participate in physical therapy Patient is counseled repeatedly by myself and cardiology Willing to try physical therapy tomorrow MORBID OBESITY Weight 158.8 kg/BMI 55 AHA diet Weight improved to 138 kg after aggressive diuresis while in hospital UTI (present on admission) Urine culture: Providencia alcalifaciens Completed antibiotic course: Cefuroxime 500 mg p.o. twice daily #7 (first day of therapy 05/15, last day of therapy 05/20-to completed- total 7 days of treatment) Antibiotic discontinued CODE STATUS: DNR/DNI DVT PROPHYLAXIS INR elevated DISPOSITION Resident at [facility] Plan to return back to [facility] possible tomorrow 05/24/2018 Social service following for discharge planning Vital Signs: Lab Results:
[2018-05-23] MEDS ORDERED: WARFARIN SOD 1.25 MG TAB PO SCH (16:00)
[2018-05-23] MEDS: SIMVASTATIN 20 MG TAB PO SCH (21:37)
[2018-05-24 03:42] VITALS: BP 136/69; PULSE 60; TEMP 36.7; O2SAT 94
[2018-05-24] MEDS: LEVOTHYROXINE 100 MCG TAB PO SCH (06:07)
[2018-05-24 07:01] LABS: INR 3.7 (0.9-1.1)
[2018-05-24] MEDS ORDERED: CYM60 PO (07:17)
[2018-05-24] MEDS ORDERED: POTA10CA28 PO (07:17)
[2018-05-24] MEDS ORDERED: SLWMEC PO (07:17)
[2018-05-24] MEDS ORDERED: TORS20TA3 PO (07:17)
[2018-05-24] MEDS ORDERED: CMD125 PO (07:17)
[2018-05-24 07:26] LABS: CALCIUM 9.4 mg/dl (8.5-10.1); CREATININE 1.74 mg/dl (0.60-1.20); POTASSIUM 3.5 mmol/L (3.5-5.1); TOTAL PROTEIN 8.1 gm/dl (6.4-8.2)
[2018-05-24 07:45] VITALS: BP 150/72; PULSE 60; TEMP 36.8; O2SAT 93
[2018-05-24] MEDS ORDERED: BOOST GLUCOSE CONTROL VANILLA PO SCH (08:45)
[2018-05-24] MEDS: FLUTICASONE/SALMETEROL 250/50 (ADVAIR) 14 PUFF/1 INHALER INH SCH (09:00)
[2018-05-24] MEDS: INSULIN ASPART 100 UNITS/ML 3 ML PEN SC SCH (09:04)
[2018-05-24] MEDS: METOPROLOL TARTRATE 25 MG TAB PO SCH (09:17)
[2018-05-24] MEDS: CHOLECALCIFEROL 1000 INTER.UNIT TAB PO SCH (09:17)
[2018-05-24] MEDS: SOTALOL HCL 80 MG TAB PO SCH (09:17)
[2018-05-24] MEDS: PANTOprazole SOD 40 MG TAB PO SCH (09:17)
[2018-05-24] MEDS: CEROVITE ADV FORMULA TAB PO SCH (09:17)
[2018-05-24] MEDS: POTASSIUM CHLORIDE 10 MEQ TABCR PO SCH (09:18)
[2018-05-24] MEDS: DULOXETINE HCL 60 MG CAP PO SCH (09:18)
[2018-05-24] MEDS: TORSEMIDE 20 MG TAB PO SCH (09:18)
[2018-05-24] MEDS: MAGNESIUM CHLORIDE 64MG DELAYED REL TAB PO SCH (09:18)
--- NOTE | 2018-05-24 09:41 | Discharge Summary ---
Discharge Summary Date of Service May 24, 2018. Discharge Summary Admission Date: May 13, 2018 at 13:30 Discharge Date: May 24, 2018 Discharge Disposition: [facility] facility ([facility] ) Principal Diagnosis: ACUTE CHF WITH DIASTOLIC DYSFUNCTION Consultations: [facility] cardiology Medication Reconciliation New Medications: Duloxetine HCl (Duloxetine HCl) 60 Mg Cap 60 MG PO QAM for 30 Days, #30 CAP Magnesium Chloride (Slow-Mag Tab) 64 Mg Tabcr 64 MG PO BID for 30 Days Potassium Chloride (Micro-K Ext Rel) 10 Meq Capcr 20 MEQ PO BID for 30 Days Torsemide (Torsemide) 20 Mg Tab 40 MG PO UGL199 for 30 Days, TAB Warfarin Sod (Coumadin) 1.25 Mg Tab 1.25 MG PO DAILY for 30 Days, #30 TAB Continued Medications: Acetaminophen (Tylenol) 325 Mg Tab 650 MG PO Q6 PRN for Pain or Fever, TAB Cholecalciferol (Vitamin D) 2,000 Unit Cap 1 CAP PO DAILY Diclofenac Sodium (Topical) (Voltaren 1% Top Gel) 1 % Gel 4 GM TOP QID PRN for Pain apply topically to bilateral knees prn pain Fluticasone Prop/Salmeterol (Advair Diskus 250/50 60 Dose) 1 Ea Aerp 1 PUFF INH BID, INHALER Levothyroxine Sodium (Levothyroxine Sodium) 100 Mcg Tab 1 TAB PO DAILY for 30 Days, #30 TAB 5 Refills Metoprolol Tartrate (Lopressor) (Lopressor) 25 Mg Tab 25 MG PO BID, TAB Multiple Vitamins W/ Minerals (Therems M) 1 Tab Tab 1 TAB PO DAILY Omeprazole (Prilosec) 20 Mg Capcr 20 MG PO DAILY, 0 Refills Polyethylene (Miralax) 17 Gm Pow 17 GM PO BID PRN for Constipation for 30 Days, BTL Simvastatin (Zocor) 20 Mg Tab 20 MG PO QPM, 0 Refills Sotalol Hcl (Betapace *) 80 Mg Tab 40 MG PO BID, 0 Refills take 1/2 pill (40 mg) twice a day Vitamin B Cmplx/Vitc/Folic Ac (Nephrocaps) Cap 1 CAP PO 3XWK, CAP mon, wed, fri Discontinued Medications: Gabapentin (Gabapentin) 300 Mg Cap 1 CAP PO TID Magnesium Oxide (Mag-Ox) 400 Mg Tab 400 MG PO BID Potassium Ext Rel (Klor-Con) 10 Meq Tabcr 10 MEQ PO DAILY, TAB Torsemide (Demadex) 20 Mg Tab 20 MG PO DAILY, TAB Warfarin Sod (Coumadin) 3 Mg Tab 1 TAB PO DAILY Admission Information HPI (per Admitting provider): Pt is 82 y/o F with PMH paroxysmal atrial fibrillation, tachybrady syndrome s/p pacer, CKD III, HTN, GERD, DM II, BLE lymphedema presents as direct admission to hospital from [facility] office for increased BLE edema. Reports chronic BLE edema and discomfort with steady increase in edema. Today clear discharge is noted from bilateral lower extremities in the office. Physical therapy has been tried for lymphedema without much relief. Diuretics have been difficult for pt secondary to her ambulatory dysfunction and inability to get up to bathroom easily. Uses scooter, takes multiple lift for transfers at [facility]. Pt unsure if any weight changes. Reports has sores to right chest wall, unsure if from bra rubbing or from lift, also c/o soreness to bilateral buttocks. Denies fever/chills, diaphoresis, N/V/D/C, MARTINEZ, dizziness , syncope, vision changes, neck pain, CP, SOB, orthopnea, PND, palpitations, cough, sore throat, choking, otalgia, rhinorrhea, abdominal pain, urinary symptoms. Physical Exam (per Admitting): General Appearance: no apparent distress, + obese Head: normocephalic, atraumatic Eyes: normal inspection, sclerae normal ENT: hearing grossly normal, pharynx normal, + pertinent finding (Mucous membranes moist) Neck: supple, no JVD, trachea midline Respiratory/Chest: lungs clear, normal breath sounds, no respiratory distress Cardiovascular: regular rate, rhythm, no murmur, normal peripheral pulses Abdomen/GI: normal bowel sounds, non tender, soft Extremities/Musculoskelatal: normal capillary refill, + pertinent finding ( BLE 3+ edema entire extremity, slight clear weeping noted from bilateral and lower lower extremities, mild BLE erythema. Extremities nontender to palpation. ) Neurologic/Psych: alert, normal mood/affect, oriented x 3 Skin: warm/dry, + pertinent finding (bilateral feet noted to be dirty, Right torso with small erythematous ulcer noted, erythemata right torso skin fold) Hospital Course Shortness of breath improved, no fever or chills Appreciate input from cardiology Diuretics does adjusted Stable to be just discharged to [facility] today PHYSICAL EXAM Exam: General-very pleasant elderly female no sign of any apparent distress Eyes-sclera nonicteric, pupils bilateral equal reactive to light extraocular muscle intact ENT-moist oral mucosa Neck-neck supple, no thyromegaly, trachea midline Lungs-diminished, no audible wheeze or rales Heart-regular S1-S2 Abdomen- soft, nontender, active bowel sound Extremities-bilaterally lower extremity significant lymphadenopathy /edema - improved from prior exam/chronic venous stasis changes, no open wound noted Neuro-no focal neurological deficit Psych-alert awake oriented 3, normal mood and affect Lymph nodes-no lymphadenopathy Date Time Temp Pulse Resp B/P (MAP) Pulse Ox O2 Delivery O2 Flow Rate FiO2 05/24/18 10:42 36.8 60 20 93 Room Air ACUTE ON CHRONIC CHF WITH DIASTOLIC DYSFUNCTION: Volume status improved with aggressive diuresis Presented with volume overload, worsening of bilateral lower extremity edema Echo: Normal LV systolic function, With 2 diastolic dysfunction Right ventricle was poorly visualized with normal systolic function, No tricuspid regurgitation Significant diuresis with IV Lasix drip-was discontinued on 05/17/18 Appreciate input from cardiology Was treated with Lasix 40 mg IV plus albumin twice daily with to prevent intravascular volume depletion IV Lasix and albumin was discontinued after evening dose on 05/21/2018 Patient started with torsemide Patient will be discharged with torsemide 40 mg p.o. twice daily HISTORY OF PAROXYSMAL A. FIB On sotalol, metoprolol Chronic anticoagulation with Coumadin, NAOMI ON CKD stage III: Creatinine improved to approximate baseline Avoid NSAIDs, contrast studies TYPE 2 DIABETES Well-controlled Recent hemoglobin A1c 5.8 continue insulin sliding scale HYPOKALEMIA Corrected Continue potassium chloride 20 mEq p.o. twice daily. Follow PRP HYPOTHYROIDISM Continue levothyroxine TSH 2.060 within normal limit CHRONIC BILATERAL LOWER EXTREMITY LYMPHEDEMA -Leading to severe ambulatory dysfunction Improved after diuresis Neurontin discontinued-to prevent fluid retention Started with Cymbalta for chronic lower extremity neuropathic pain-appreciate input from cardiology Stable to be discharged to [facility] today MORBID OBESITY Weight 158.8 kg/BMI 55 AHA diet Weight improved to 138 kg after aggressive diuresis while in hospital UTI (present on admission) Urine culture: Providencia alcalifaciens Completed antibiotic course: Cefuroxime 500 mg p.o. twice daily #7 (first day of therapy 05/15, last day of therapy 05/20-to completed- total 7 days of treatment) Antibiotic discontinued CODE STATUS: DNR/DNI DVT PROPHYLAXIS Coumadin DISPOSITION Resident at [facility] return back to [facility] today Social service following for discharge planning Total time spent on discharge = 40 M INS This includes examination of the patient, discharge planning, medication reconciliation, and communication with other providers. Discharge Instructions Discharge Instructions Date of Service May 21, 2018. Admission Reason for Admission: Volume Overload Discharge Discharge Diagnosis / Problem: ACUTE CHF WITH DIASTOLIC DYSFUNCTION Discharge Goals Goal(s): Decrease discomfort, Improve function, Increase independence, Improve disease control, Therapeutic intervention Activity Recommendations Activity Level: Assistance Required Therapies: Physical Therapy, Occupational Therapy . Additional Information Patient informed of condition: Yes Advance Directives: Yes DNR: Yes Level of Care: Other (Resident at [facility]) Communicable Disease: No Prognosis: Stable [place] Catheter: No Instructions / Follow-Up Instructions / Follow-Up HOSPITAL FOLLOW-UP WITH PHYSICIAN AT [facility] NO COUMADIN TODAY 05/24/18 AND TOMORROW 05/25/18 PT/INR CHECK TOMORROW 05/25/18 AND RESUME COUMADIN AT LOWER DOSE 1.25 MG DAILY IF INR < 3 GOAL INR 2-3 Current Hospital Diet Patient's current hospital diet: AHA Diet (Heart Healthy), Diabetes Type 2 Diet Discharge Diet Recommended Diet: AHA Diet (Heart Healthy), Diabetes Type 2 Diet Fluid Restriction: 1500 ml (6 cups) Pending Studies Studies pending at discharge: no Laboratory Results Hemoglobin A1c Test 05/14/18 05:42 Range/Units Estimated Average Glucose 120 mg/dl Hemoglobin A1c 5.8 H 4.5-5.6 % Lipid Panel Test 04/13/18 05:30 Range/Units Triglycerides Level 135 0-150 mg/dl Cholesterol Level 79 0-200 mg/dl HDL Cholesterol 38 mg/dl Cholesterol/HDL Ratio 2.1 LDL Cholesterol, Calculated 14 mg/dl Medical Emergencies . Who to Call and When: Medical Emergencies: If at any time you feel your situation is an emergency, please call 911 immediately. . Non-Emergent Contact Non-Emergency issues call your: Primary Care Provider . . "Provider Documentation" section prepared by Luann Walker. . Core Measure Problem Core Measures: None
[2018-05-24 10:42] VITALS: BP 150/72; PULSE 60; TEMP 36.8; O2SAT 93
--- NOTE | 2018-05-28 12:23 | EDITING REQUIRED CODING QUERY ---
CODING QUERY To promote full compliance with coding requirements relating to patient care, provider participation is requested in all cases of irrigation teacher uncertainty. Please assist us with the question(s) below: Please clarify the meaning of NAOMI. NAOMI is not a valid abbreviation. Thank you. ( X) Acute Kidney Injury ( ) Acute Kidney Insufficiency ( ) Other (Specify): Principal Diagnosis: "_that condition established after study, to be chiefly responsible for occasioning the admission of the patient to the hospital for care." Co-Existing Principal Diagnosis: "_when two or more diagnoses equally meet the criteria for principal diagnosis as determined by the circumstances of admission, diagnostic work up, and/or therapy provided, and the Alphabetic Index, Tabular List, or another coding guideline does not provide sequencing direction, any one of the diagnoses may be sequenced first." "When the physician has documented what appears to be a current diagnosis in the body of the record, but has not included the diagnosis in the final diagnostic statement, the physician should be asked whether the diagnosis should be added." (Source [facility]oding [facility] 2 QTR90. p3-4)
== END 2018-05-24 11:46 | DRG 291 ==
LOC: C.2E 13:30
PROVIDERS: ADMIT Internal Medicine; ATTEND Hospitalist
DX: I13.0 Hypertensive heart and chronic kidney disease with heart failure and stage 1 through stage 4 chronic kidney disease, or unspecified chronic kidney disease (principal); I50.33 Acute on chronic diastolic (congestive) heart failure; N39.0 Urinary tract infection, site not specified; N17.9 Acute kidney failure, unspecified; Z68.43 Body mass index [BMI] 50.0-59.9, adult; I89.0 Lymphedema, not elsewhere classified; I87.2 Venous insufficiency (chronic) (peripheral); B96.89 Other specified bacterial agents as the cause of diseases classified elsewhere; E87.6 Hypokalemia; R79.1 Abnormal coagulation profile; T45.515A Adverse effect of anticoagulants, initial encounter; T43.215A Adverse effect of selective serotonin and norepinephrine reuptake inhibitors, initial encounter; I48.0 Paroxysmal atrial fibrillation; L89.319 Pressure ulcer of right buttock, unspecified stage; L89.329 Pressure ulcer of left buttock, unspecified stage; N18.3 Chronic kidney disease, stage 3 (moderate); R26.9 Unspecified abnormalities of gait and mobility; R39.81 Functional urinary incontinence; E11.22 Type 2 diabetes mellitus with diabetic chronic kidney disease; E11.40 Type 2 diabetes mellitus with diabetic neuropathy, unspecified; K21.9 Gastro-esophageal reflux disease without esophagitis; E03.9 Hypothyroidism, unspecified; E78.5 Hyperlipidemia, unspecified; G89.29 Other chronic pain; M19.90 Unspecified osteoarthritis, unspecified site; E66.01 Morbid (severe) obesity due to excess calories; Z66 Do not resuscitate; Z95.0 Presence of cardiac pacemaker; Z86.79 Personal history of other diseases of the circulatory system; Z86.711 Personal history of pulmonary embolism; Z79.01 Long term (current) use of anticoagulants; Z79.899 Other long term (current) drug therapy; Z91.040 Latex allergy status; Z88.0 Allergy status to penicillin; Z88.2 Allergy status to sulfonamides; Z88.8 Allergy status to other drugs, medicaments and biological substances; Z91.030 Bee allergy status

== ENCOUNTER → 2018-05-13 | Outpatient (CLI) | payer OTHER ==
[~2018-05-13] MED LIST changes: +ACET-1311 PO; +ADVIN25/60 INH; +CHOL200010 PO; +CMD125 PO; +CMD3 PO; +CYM60 PO; +DICL1GEL12 TOP; +LEVO100T7 PO; +MULTTAB63 PO; +NRN100 PO; +NRN300 PO; +POTA10CA28 PO; +SLWMEC PO; +TORS20TA3 PO
[2018-05-13 09:24] LABS: INR 1.7 (0.9-1.1)
== END ==
LOC: C.LABCC 08:26
PROVIDERS: ATTEND Internal Medicine
DX: I48.91 Unspecified atrial fibrillation (principal)

== ENCOUNTER → 2018-05-25 | Outpatient (CLI) | payer OTHER ==
[~2018-05-25] MED LIST changes: +ACET-1311 PO; +ADVIN25/60 INH; +CHOL200010 PO; +CMD125 PO; +CYM60 PO; +DICL1GEL12 TOP; -ERGO500011 PO; -GABA-112 PO; +LEVO100T7 PO; -LEVO75TA PO; -MAGN400T6 PO; -MULT-513 PO; +MULTTAB63 PO; -POTA-327 PO; +POTA10CA28 PO; +SLWMEC PO; -TORS20TA2 PO; +TORS20TA3 PO; -WARF5TAB7 PO
[2018-05-25 12:04] LABS: INR 4.2 (0.9-1.1)
== END ==
LOC: C.LABSPEC 09:31
PROVIDERS: ATTEND Internal Medicine
DX: I48.91 Unspecified atrial fibrillation (principal)

== ENCOUNTER → 2018-05-26 | Outpatient (CLI) | payer OTHER ==
[2018-05-26 08:51] LABS: BLOOD UREA NITROGEN 74 mg/dl (7-18); CALCIUM 9.9 mg/dl (8.5-10.1); CARBON DIOXIDE 32 mmol/L (21-32); GLUCOSE 111 mg/dl (70-99); POTASSIUM 3.6 mmol/L (3.5-5.1); SODIUM 138 mmol/L (136-145)
[2018-05-26 09:06] LABS: INR 4.7 (0.9-1.1)
== END ==
LOC: C.LABCC 08:14
PROVIDERS: ATTEND Internal Medicine
DX: I48.91 Unspecified atrial fibrillation (principal); I50.9 Heart failure, unspecified

== ENCOUNTER → 2018-05-28 | Outpatient (CLI) | payer OTHER ==
[2018-05-28 08:36] LABS: BLOOD UREA NITROGEN 81 mg/dl (7-18); CALCIUM 9.5 mg/dl (8.5-10.1); CARBON DIOXIDE 31 mmol/L (21-32); CREATININE 2.78 mg/dl (0.60-1.20); GLUCOSE 113 mg/dl (70-99); POTASSIUM 3.8 mmol/L (3.5-5.1); SODIUM 137 mmol/L (136-145)
[2018-05-28 08:46] LABS: INR 3.9 (0.9-1.1)
== END ==
LOC: C.LABCC 07:58
PROVIDERS: ATTEND Internal Medicine
DX: I48.91 Unspecified atrial fibrillation (principal); N18.9 Chronic kidney disease, unspecified

== ENCOUNTER → 2018-05-31 | Outpatient (CLI) | payer OTHER ==
[~2018-05-31] MED LIST changes: -B-CO1CAP17 PO; +B-COCAP2 PO
[2018-05-31 09:40] LABS: BLOOD UREA NITROGEN 71 mg/dl (7-18); CALCIUM 9.3 mg/dl (8.5-10.1); CARBON DIOXIDE 30 mmol/L (21-32); CREATININE 2.11 mg/dl (0.60-1.20); GLUCOSE 105 mg/dl (70-99); POTASSIUM 3.6 mmol/L (3.5-5.1); SODIUM 135 mmol/L (136-145)
== END ==
LOC: C.LABCC 08:13
PROVIDERS: ATTEND Internal Medicine
DX: I48.91 Unspecified atrial fibrillation (principal); N18.9 Chronic kidney disease, unspecified

== ENCOUNTER → 2018-06-01 | Outpatient (CLI) | payer OTHER | LOC: C.LABCC 08:47 | PROVIDERS: ATTEND Internal Medicine | DX: E78.5 Hyperlipidemia, unspecified (principal) ==

== ENCOUNTER → 2018-06-08 | Outpatient (CLI) | payer OTHER ==
[2018-06-08 08:50] LABS: BLOOD UREA NITROGEN 52 mg/dl (7-18); CALCIUM 9.6 mg/dl (8.5-10.1); CARBON DIOXIDE 31 mmol/L (21-32); CREATININE 2.06 mg/dl (0.60-1.20); GLUCOSE 103 mg/dl (70-99); POTASSIUM 3.7 mmol/L (3.5-5.1); SODIUM 139 mmol/L (136-145)
[2018-06-08 08:52] LABS: INR 1.2 (0.9-1.1)
== END ==
LOC: C.LABCC 08:25
PROVIDERS: ATTEND Internal Medicine
DX: I48.91 Unspecified atrial fibrillation (principal); N18.3 Chronic kidney disease, stage 3 (moderate); E87.6 Hypokalemia

== ENCOUNTER → 2018-06-14 | Outpatient (CLI) | payer OTHER ==
[2018-06-14 08:30] LABS: BLOOD UREA NITROGEN 57 mg/dl (7-18); CALCIUM 9.7 mg/dl (8.5-10.1); CARBON DIOXIDE 31 mmol/L (21-32); CREATININE 2.33 mg/dl (0.60-1.20); GLUCOSE 102 mg/dl (70-99); INR 1.7 (0.9-1.1); POTASSIUM 2.8 mmol/L (3.5-5.1); SODIUM 137 mmol/L (136-145)
== END ==
LOC: C.LABCC 08:10
PROVIDERS: ATTEND Internal Medicine
DX: R60.0 Localized edema (principal); I48.91 Unspecified atrial fibrillation

== ENCOUNTER → 2018-06-16 | Outpatient (CLI) | payer OTHER ==
[2018-06-16 10:23] LABS: BLOOD UREA NITROGEN 58 mg/dl (7-18); CALCIUM 9.7 mg/dl (8.5-10.1); CARBON DIOXIDE 29 mmol/L (21-32); CREATININE 2.22 mg/dl (0.60-1.20); GLUCOSE 107 mg/dl (70-99); POTASSIUM 3.2 mmol/L (3.5-5.1); SODIUM 138 mmol/L (136-145)
== END ==
LOC: C.LABCC 08:26
PROVIDERS: ATTEND Internal Medicine
DX: N18.9 Chronic kidney disease, unspecified (principal); E87.6 Hypokalemia

== ENCOUNTER → 2018-06-17 | Outpatient (CLI) | payer OTHER ==
[2018-06-17 09:07] LABS: INR 2.4 (0.9-1.1)
== END ==
LOC: C.LABCC 08:36
PROVIDERS: ATTEND Internal Medicine
DX: I48.91 Unspecified atrial fibrillation (principal)

== ENCOUNTER 2018-10-21 15:21 | Inpatient (IN) ==
[2018-10-21 16:11] LABS: Appearance Urine Turbid (Clear); Bacteria Urine Automated 4+ (Negative); Bilirubin Urine Negative (Negative); Color Urine Dark Yellow; Epithelial Cell Urine Auto >30 /lpf (0-5); Glucose Urine UA Negative (Negative); Ketones Urine Negative (Negative); Leukocyte Esterase Urine 3+ (Negative); Nitrite Urine Positive (Negative); Protein Urine 1+ (Negative); Specific Gravity Urine 1.014 (1.000-1.030); Urobilinogen Urine Negative (Negative); WBC Urine Automated >30 /hpf (0-5)
[2018-10-21 16:24] LABS: Cast Urine Automated 0 /lpf (0-5)
[2018-10-21 16:37] LABS: Basophils # (auto) 0.03 K/uL (0-0.2); Basophils % (auto) 0.3 %; Eosinophils # (auto) 0.07 K/uL (0-0.5); Eosinophils % (auto) 0.7 %; Hemoglobin 12.1 g/dL (12.0-16.0); Immature Granulocytes # (auto) 0.03 K/uL (0.00-0.02); Immature Granulocytes % (auto) 0.3 %; Lymphocytes # (auto) 1.98 K/uL (1.2-3.4); Mean Corpuscular Hgb Conc 31.8 g/dL (32-36); Mean Corpuscular Volume 90.7 fL (80-100); Mean Platelet Volume 10.7 fL (7.4-10.4); Monocytes # (auto) 1.18 K/uL (0.11-0.59); Monocytes % (auto) 11.9 %; Neutrophils # (auto) 6.61 K/uL (1.4-6.5); Neutrophils % (auto) 66.8 %; Platelet Count 317 K/uL (130-400); RDW Coefficient of Variation 15.9 % (11.5-14.5); RDW Standard Deviation 51.2 fL (36.4-46.3); Red Blood Count 4.19 M/uL (4.2-5.4)
[2018-10-21 16:51] LABS: INR 2.1 (0.9-1.1); Prothrombin Time 20.5 Seconds (9.0-12.0)
[2018-10-21 16:54] LABS: Alanine Aminotransferase 9 U/L (12-78); Albumin Level 1.7 gm/dl (3.4-5.0); Aspartate Aminotransferase 17 U/L (15-37); BUN Creatinine Ratio 14.1 (10-20); Blood Urea Nitrogen 29 mg/dl (7-18); Calcium 9.1 mg/dl (8.5-10.1); Carbon Dioxide 32 mmol/L (21-32); Chloride 109 mmol/L (98-107); Est GFR (Non-African American) 21.6; Glucose 102 mg/dl (70-99); Magnesium 2.4 mg/dl (1.8-2.4); Potassium 4.2 mmol/L (3.5-5.1); Sodium 148 mmol/L (136-145)
[2018-10-21 17:04] LABS: Albumin Globulin Ratio 0.3 (0.9-2); Alkaline Phosphatase 145 U/L (45-117); Bilirubin,Total 0.8 mg/dl (0.1-1); Globulin 5.6 gm/dl (2.5-4.0); Total Protein 7.3 gm/dl (6.4-8.2); Troponin I 0.021 ng/ml (0-0.045)
[2018-10-23 07:15] LABS: Hematocrit (blood only) 34.1 % (37-47); Hemoglobin 10.6 g/dL (12.0-16.0); Mean Corpuscular Hgb Conc 31.1 g/dL (32-36); Mean Corpuscular Volume 90.7 fL (80-100); Mean Platelet Volume 10.4 fL (7.4-10.4); Platelet Count 354 K/uL (130-400); RDW Standard Deviation 51.7 fL (36.4-46.3); Red Blood Count 3.76 M/uL (4.2-5.4); White Blood Count 7.34 K/uL (4.8-10.8)
[2018-10-23 07:24] LABS: INR 2.4 (0.9-1.1); Prothrombin Time 22.8 Seconds (9.0-12.0)
[2018-10-23 08:09] LABS: BUN Creatinine Ratio 15.2 (10-20); Calcium 9.1 mg/dl (8.5-10.1); Creatinine Clr Calc Pharmacy 22.7 ml/min; Est GFR (African American) 23.8; Est GFR (Non-African American) 20.5; Magnesium 2.5 mg/dl (1.8-2.4); Potassium 3.5 mmol/L (3.5-5.1)
[2018-10-24 06:47] LABS: INR 2.6 (0.9-1.1); Prothrombin Time 24.8 Seconds (9.0-12.0)
[2018-10-24 07:09] LABS: BUN Creatinine Ratio 15.9 (10-20); Calcium 8.9 mg/dl (8.5-10.1); Creatinine Clr Calc Pharmacy 26.5 ml/min; Est GFR (African American) 28.7; Est GFR (Non-African American) 24.7; Magnesium 2.5 mg/dl (1.8-2.4); Potassium 3.9 mmol/L (3.5-5.1)
== END 2018-10-24 13:00 ==
LOC: ED 15:21 → 2N 15:21 → SUATTDRO 21:19 → 2N 21:59 → 4E 10-22 08:55